=== PATIENT | male | born 1975 | race Caucasian/White ===

== ENCOUNTER → 2024-03-01 | Outpatient (CLI) | payer OTHER ==
[2024-03-01 11:17] LABS: HCT 49.4 % (39.6-50.0); HGB 17.2 g/dL (13.0-17.0); MCH 31.9 pg (27.0-32.0); MCHC 34.8 g/dL (32.0-37.0); MCV 91.7 FL (80.0-97.0); Mean Platelet Volume 10.5 FL (9.5-12.2); NRBC Per 100 WBC 0 X 10*3/uL (0.00-0.01); Platelet Count 242 X 10*3/uL (140-440); RBC 5.39 X 10*6/uL (4.40-5.60); RDW 13.9 % (11.5-14.5); WBC 8.49 X 10*3/uL (4.50-10.00)
[2024-03-01 12:11] LABS: ALT 18 U/L (10-49); AST 26 U/L (14-35); Albumin 4.5 g/dL (3.8-4.9); Albumin/Globulin Ratio 1.67 Ratio (1.60-3.17); Alkaline Phosphatase 85 U/L (41-126); BUN/Creat Ratio 11.62 Ratio (12.00-20.00); Blood Urea Nitrogen 9.3 mg/dL (9.0-27.0); Calcium 9.9 mg/dL (8.7-10.3); Carbon Dioxide 24.8 mmol/L (21.6-31.8); Chloride 100 mmol/L (96-109); Globulin 2.7 g/dL (1.6-3.3); Glucose 122 mg/dL (70-110); Potassium 3.8 mmol/L (3.5-5.5); Sodium 140 mmol/L (135-145); Total Bilirubin 0.7 mg/dL (0.3-1.2); Total Protein 7.2 g/dL (6.2-8.2)
== END | disposition home or self-care (01) ==
LOC: LABWHC1 09:05
PROVIDERS: ATTEND Internal Medicine Interventional Cardiology
DX: E78.2 Mixed hyperlipidemia (principal); R07.9 Chest pain, unspecified
CPT/HCPCS: 36415; 80053; 80061; 83721; 85027

== ENCOUNTER → 2024-04-08 | Day surgery (SDC) | payer OTHER ==
[2024-04-06 14:18] VITALS: BMI 33.4
[~2024-04-08] MED LIST: ALPRAZolam 0.25 MG TAB PO PRN; ALPRAZolam 0.5 MG TAB PO PRN; ASPIRIN 81 MG PO SCH; ATORVASTATIN 40 MG TAB PO SCH; HEPARIN SODIUM,PORCINE (1 ML) 2,500 UNIT in SODIUM CHLORIDE 0.9% 250 ML IRRIGATION PRN; HEPARIN SODIUM,PORCINE 10,000 UNIT in SODIUM CHLORIDE 0.9% 1,000 ML IRRIGATION PRN; METOPROLOL TARTRATE 50 MG TAB PO SCH; NITROGLYCERIN SL TABS 0.4 MG TAB SUBLINGUAL PRN; RX INFO: IV CONTRAST WAS GIVEN 1 EACH MISC MISCELLANE PRN; SODIUM CHLORIDE 0.9% 1,000 ML IV SCH
[2024-04-08] MEDS: SODIUM CHLORIDE 0.9% 1,000 ML in EMPTY BAG 1 BAG IV SCH (07:30)
[2024-04-08] MEDS: IV FLUID CONTINUATION 1,000 ML IV ONE (07:30)
[2024-04-08] MEDS: ASPIRIN 325 MG TAB PO STA (08:20)
[2024-04-08] MEDS: ATORVASTATIN 80 MG TAB PO STA (08:20)
[2024-04-08 08:31] VITALS: TEMP 98.6
[2024-04-08] MEDS: METOPROLOL TARTRATE 25 MG TAB PO STA (08:44)
[2024-04-08] MEDS: fentaNYL (PF) 50 MCG/ML 2 ML AMP IVP ONE (10:51)
[2024-04-08] MEDS: LIDOCAINE 1% INJ 10MG/ML (20 ML MDV) SQ ONE (10:54)
[2024-04-08] MEDS: VERAPAMIL SYRINGE (5 MG/10 ML) INTRAARTER ONE (10:56)
[2024-04-08] MEDS: MIDAZOLAM 2 MG/2 ML VIAL IVP ONE (11:00)
[2024-04-08 11:13] LABS: WBC 8.8 k/uL (3.8-10.6)
[2024-04-08 11:14] LABS: Basophils % (A) 1 %; Eosinophils # (A) 0.1 k/uL (0-0.7); Eosinophils % (A) 2 %; HCT 45.5 % (39.0-53.0); HGB 15.4 gm/dL (13.0-17.5); Lymphocytes # (A) 2.4 k/uL (1.0-4.8); Lymphocytes % (A) 28 %; MCH 32.2 pg (25.0-35.0); MCV 94.8 fL (80.0-100.0); Mean Platelet Volume 8.9; Monocytes # (A) 0.4 k/uL (0-1.0); Monocytes % (A) 5 %; Neutrophils # (A) 5.5 k/uL (1.3-7.7); Neutrophils % (A) 63 %; Platelet Count 257 k/uL (150-450); RBC 4.79 m/uL (4.30-5.90); RDW 12.9 % (11.5-15.5)
[2024-04-08 11:24] LABS: African American GFR (CKD) >90 (>60 ml/min/1.73 sqM); Anion Gap 11 mmol/L; Blood Urea Nitrogen 14 mg/dL (9-20); Calcium 8.9 mg/dL (8.4-10.2); Carbon Dioxide 19 mmol/L (22-30); Chloride 108 mmol/L (98-107); Glucose 122 mg/dL (74-99); Non-African American GFR(CKD) >90 (>60 ml/min/1.73 sqM); Potassium 3.6 mmol/L (3.5-5.1); Sodium 138 mmol/L (137-145)
--- NOTE | 2024-04-08 11:27 | P.CARDCATH ---
Date of Procedure: 04/08/24 Description of Procedure: Cardiac Catheterization: The patient is a 48-year-old male with known history of chronic tobacco use, hyperlipidemia, strong family history of premature CAD who presented with symptoms of exertional chest discomfort and had an abnormal stress test. Recommendations were made regarding cardiac catheterization, the risks and the complications were discussed with the patient who is in full understanding and agreement. Procedure Description: Patient was brought to [facility] in fasting semi-sedated state after receiving Fentanyl and Benadryl achieiving moderate conscious sedated state. Using Xylocaine Anesthesia and modified Seldinger technique, a 6-Kyrgyz sheath was introduced in the right radial artery . Subsequently, selective coronary angiography was performed using a 5-Kyrgyz 3.5 bend Sherrie catheter. Multiple views of the coronary artery including hemiaxial views were obtained. The right Sherrie catheter was used to cross the aortic valve and LVEDP was calculated. Following that, catheter and sheath were removed. Hemostasis was obtained with deployment of vascular band . There was no immediate complication. Patient was returned to room in stable condition. Of note, the patient received a total of 5000 units of intravenous heparin as well as intra-arterial verapamil. Findings: Fluoroscopy: Calcification of the proximal LAD was noted Left main: This is a large size vessel, bifurcating into LAD and left circumflex, left main has no obstructive disease LAD: This vessel is occluded at the ostium with no significant antegrade flow. There is retrograde flow through collaterals from the right septals to the proximal segment of the LAD and back feeding the diagonal branch Left circumflex: This is a large nondominant vessel, giving rise to 4 obtuse marginal branch. The first obtuse marginal branch has an 80% stenosis at the ostium. The third obtuse marginal branch is chronically occluded with retrograde flow and appears to be large in caliber RCA: This is a large dominant vessel, bifurcating distally to PDA and PLV. The mid right coronary artery has 20 to 30% plaque. The right PDA through the septal give collaterals to the LAD. Left Ventriculogram: Not performed Hemodynamics: There was no gradient across the aortic valve, LVEDP was 26-30 mm Hg Conclusion: 1. Calcified LAD with chronic total occlusion and collaterals from the right coronary system 2. Chronically occluded OM 3 with critical stenosis in OM1 3. Mild disease in the RCA 4. Elevated LVEDP Recommendations: I have recommended to proceed with evaluation for CABG in view of the anatomy. The findings were discussed with the patient and his family. The importance of smoking cessation was discussed with him, he will be referred to [place]. The findings and the recommendations were discussed with the patient and the family and they were in full understanding and agreement. Duration of sedation is 11 minutes.
--- NOTE | 2024-04-08 13:06 | P.GSCN ---
History of Present Illness Consult date: 04/08/24 Reason for Consult: Coronary artery disease Requesting physician: Noe Majano History of present illness: This is a 48-year-old gentleman who does not follow with a primary care physician on an outpatient basis. He has a previous medical history of hyperlipidemia, current tobacco dependence, current daily EtOH use, current daily marijuana use, and strong family history of premature coronary artery disease. Apparently he has been experiencing substernal chest pain with radiation and numbness to his left arm associated with occasional shortness of breath. These episodes have been intermittent since October, they are mostly with activity although he does admit that he occasionally gets woken up from sleep in the middle of the night due to chest pain. He began following with Dr. Majano at [facility] and was started on aspirin, statin, beta-frank therapy. In the middle of February he underwent echocardiogram revealing normal left ventricular systolic function with EF 55 to 60%, mild left ventricular hypertrophy, trace to mild mitral regurgitation, and mild tricuspid regurgitation. He also had a treadmill stress test which demonstrated 1.[address] segment depression in leads II, III, aVF, V4 through V6. Due to these findings the patient was recommended to undergo heart catheterization which was completed today by Dr. Majano revealing calcified left anterior descending coronary artery with chronic total occlusion and collaterals from the right coronary system, chronically occluded third obtuse marginal as well as critical stenosis in the first obtuse marginal coronary artery and mild disease in the right coronary artery. Consultation was placed to Dr. Mendoza from cardiothoracic surgery for surgical revascularization recommendations. Review of Systems Review of systems was completed and was negative except as noted - Cardiovascular Reports as per HPI, Reports chest pain, Reports shortness of breath Past Medical History Past Medical History: Coronary Artery Disease (CAD), Chest Pain / Angina, Hyperlipidemia, Hypertension Additional Past Medical History / Comment(s): chest pain radiating to left arm with numbness,SOB w/ activity History of Any Multi-Drug Resistant Organisms: None Reported Past Surgical History: Tonsillectomy Additional Past Surgical History / Comment(s): pierre ingrown toenails Past Anesthesia/Blood Transfusion Reactions: No Reported Reaction, Family History of Problems w/ Anesthesia Additional Past Anesthesia/Blood Transfusion Reaction / Comm: no hx blood transfusion. mom has trouble waking up with anesthesia Past Psychological History: No Psychological Hx Reported Smoking Status: Current every day smoker Past Alcohol Use History: Daily Additional Past Alcohol Use History / Comment(s): Drinks 1 pint daily Past Drug Use History: Marijuana Additional Drug Use History / Comment(s): Uses marijuana daily Additional History: Smokes 1/2 pack/day for the last 10 years - Past Family History Mother Family Medical History: Cancer Father Family Medical History: Coronary Artery Disease (CAD) Additional Family Medical History / Comment(s): Premature coronary artery disease Medications and Allergies Home Medications Medication Instructions Recorded Confirmed Type Aspirin 81 mg PO DAILY 04/06/24 04/08/24 History Atorvastatin [Lipitor] 40 mg PO DAILY 04/06/24 04/08/24 History Metoprolol Tartrate [Lopressor] 50 mg PO BID #0 04/08/24 04/08/24 Rx Nitroglycerin Sl Tabs [Nitrostat] 0.4 mg SUBLINGUAL Q5M PRN #25 tab 04/08/24 Rx Allergies Allergy/AdvReac Type Severity Reaction Status Date / Time isosorbide AdvReac severe Verified 04/06/24 14:08 bounding FREEMAN,sweats,fever Surgical - Exam Vital Signs Temp Pulse Resp BP Pulse Ox 98.6 F 84 16 144/96 98 04/08/24 07:50 04/08/24 07:50 04/08/24 07:50 04/08/24 07:50 04/08/24 07:50 CONSTITUTIONAL: Awake and alert, appears comfortable, cooperative, well- developed, well-nourished, no pain, no acute distress EYES: Pupils equal, round, reactive to light, normal ocular movement ENT: Moist mucous membranes without oral lesions present NECK: No masses, no bruits, trachea midline RESPIRATORY: Lungs sounds clear to auscultation bilaterally. Respirations even, nonlabored. Currently on room air with oxygen saturation 97%. Strong cough. No chest wall deformities. No clubbing or cyanosis present CARDIOVASCULAR: S1, S2 present. Regular rate and rhythm, sinus rhythm on telemetry. Palpable peripheral pulses bilaterally. No edema present. No calf pain or tenderness noted. No significant lower extremity varicosities noted. Left radial Sharath's test less than 8 seconds. GASTROINTESTINAL: Abdomen soft, nontender, nondistended without masses or organomegaly noted. There is no rebound or guarding present. Active bowel sounds present 4 quadrants. GENITOURINARY: Deferred INTEGUMENTARY: Skin is warm and dry with evidence of good perfusion. NEUROLOGIC: Cranial nerves II through XII intact, normal coordination, no obvious motor or sensory deficits, speech is normal MUSKULOSKELETAL: Able to move all extremities, strength equal bilaterally, normal posture PSYCHIATRIC: Alert and oriented to person place and time, appropriate affect, intact judgment and insight CLINICAL FRAILTY SCORE 2 Results - Labs 04/08/24 07:29 04/08/24 07:29 Abnormal Lab Results - Last 24 Hours (Table) 04/08/24 Range/Units 07:29 Chloride 108 H (98-107) mmol/L Carbon Dioxide 19 L (22-30) mmol/L Glucose 122 H (74-99) mg/dL Diabetes panel 04/08/24 Range/Units 07:29 Sodium 138 (137-145) mmol/L Potassium 3.6 (3.5-5.1) mmol/L Chloride 108 H (98-107) mmol/L Carbon Dioxide 19 L (22-30) mmol/L BUN 14 (9-20) mg/dL Creatinine 0.69 (0.66-1.25) mg/dL Glucose 122 H (74-99) mg/dL Calcium 8.9 (8.4-10.2) mg/dL Calcium panel 04/08/24 Range/Units 07:29 Calcium 8.9 (8.4-10.2) mg/dL Pituitary panel 04/08/24 Range/Units 07:29 Sodium 138 (137-145) mmol/L Potassium 3.6 (3.5-5.1) mmol/L Chloride 108 H (98-107) mmol/L Carbon Dioxide 19 L (22-30) mmol/L BUN 14 (9-20) mg/dL Creatinine 0.69 (0.66-1.25) mg/dL Glucose 122 H (74-99) mg/dL Calcium 8.9 (8.4-10.2) mg/dL Adrenal panel 04/08/24 Range/Units 07:29 Sodium 138 (137-145) mmol/L Potassium 3.6 (3.5-5.1) mmol/L Chloride 108 H (98-107) mmol/L Carbon Dioxide 19 L (22-30) mmol/L BUN 14 (9-20) mg/dL Creatinine 0.69 (0.66-1.25) mg/dL Glucose 122 H (74-99) mg/dL Calcium 8.9 (8.4-10.2) mg/dL - Imaging Additional studies: Heart catheterization reviewed Assessment and Plan Assessment: Coronary artery disease Chest pain, secondary to above History of hyperlipidemia Current tobacco dependence Current daily EtOH use Current daily marijuana use Strong family history of premature coronary artery disease Plan: The patient was seen and examined sitting up on a cart in the Extended Stay unit in no acute distress. Family was present. Chart/diagnostics were reviewed. The usual perioperative course of open-heart surgery was discussed in detail with the patient and his family, risks and benefits reviewed, all questions were answered. The case will be discussed in detail with Dr. Mendoza. Preoperative testing was initiated, once completed we will calculate STS risk score. The patient was strongly counseled to quit smoking completely, refrain from daily EtOH and marijuana use. Recommend continuing aspirin, statin, beta-frank therapy. More recommendations to be made once Dr. Mendoza has had the opportunity to review the patient's heart catheterization films and talk with the patient. Thank you Dr. Majano for this consult. More recommendations to follow. I have personally seen and examined the patient, performed the documentation and the assessment and plan as written. Number of minutes spent on the visit: 30. ELIZABETH Montgomery
[2024-04-08 13:10] LABS: Appearance,Urine Clear (Clear); Bilirubin,Urine Negative (Negative); Blood,Urine Negative (Negative); Color,Urine Colorless; Glucose,Urine (UA) Negative (Negative); Ketones,Urine Negative (Negative); Leukocyte Esterase,Urine Negative (Negative); Nitrite,Urine Negative (Negative); Protein,Urine Negative (Negative); Specific Gravity,Urine 1.026 (1.001-1.035); Urobilinogen,Urine <2.0 mg/dL (<2.0)
--- NOTE | 2024-04-08 14:02 | US ---
EXAMINATION TYPE: Pre-Operative Non-Invasive Evaluation of the hand for Potential Radial Artery Ronaldo , Measurements only DATE OF EXAM: 04/08/2024 1:47 PM CLINICAL INDICATION: Male, 48 years old with history of measurements only; open heart, Preop- Cardiac Surgery TECHNIQUE:Grayscale and color Doppler imaging of the radial artery(s) SIDE PERFORMED: Left FINDINGS: Dominant hand: Right Duplex Findings: Radial Artery: Color flow seen Measurements in mm, transverse view: Left Radial: Proximal: 3.4 x 3.0 mm Mid: 3.0 x 3.0 mm Distal: 3.0 x 3.3 mm IMPRESSION: 1. No evidence for vascular occlusion. 2. Measurements as described above. [facility], , 04/08/2024 1:59 PM
--- NOTE | 2024-04-08 14:13 | US ---
EXAMINATION TYPE: US vein mapping BILAT DATE OF EXAM: 04/08/2024 1:47 PM COMPARISON: NONE CLINICAL INDICATION: Male, 48 years old with history of preop cardiac surgery; open heart, Preop- Car diac Surgery TECHNIQUE: Grayscale and color Doppler imaging of the lower extremity venous system. SIDE PERFORMED: Bilateral FINDINGS: PATIENT HISTORY: Smoker: y Heart Disease: n Previous DVT: n Vascular Surgery: n Discoloration: n Hypertension: y Diabetes: n Paralysis: n Varicosities: n Edema: n DUPLEX FINDINGS: Greater Saphenous: Color flow seen Measurements in mm: Right Greater Saphenous: Groin: 4.5 x 4.3 mm High Thigh: 2.4 x 2.8 mm Mid Thigh: 4.8 x 5.5 mm Above Knee: 5.0 x 6.5 mm Knee: 6.3 x 7.3 mm Below Knee: 4.7 x 5.6 mm Mid Calf: 2.1 x 2.5 mm At Ankle: 2.8 x 3.5 mm Left Greater Saphenous: Groin: 10.0 x 7.5 mm High Thigh: 4.5 x 6.7 mm Mid Thigh: 4.8 x 6.1 mm Above Knee: 4.7 x 6.0 mm Knee: 4.1 x 5.9 mm Below Knee: 4.5 x 5.8 mm Mid Calf: 3.3 x 4.3 mm At Ankle: 3.9 x 3.9 mm IMPRESSION: 1. No evidence for occlusion. 2. GSV measurements listed above. 3. Performing surgeon to determine viability as conduit. [facility], , 04/08/2024 2:11 PM
--- NOTE | 2024-04-08 14:38 | US ---
EXAMINATION TYPE: US carotid duplex BILAT DATE OF EXAM: 04/08/2024 COMPARISON: NONE CLINICAL INDICATION: Male, 48 years old with history of preop cardiac surgery; open heart, no stroke history Additional History: .... TECHNIQUE: Grayscale, color Doppler and spectral Doppler evaluation of the bilateral carotid systems and vertebral arteries. Indirect Doppler criteria was utilized. FINDINGS: EXAM MEASUREMENTS: RIGHT: Peak Systolic Velocity (PSV) cm/sec ----- Right CCA: 89.6 ----- Right ICA: 88.6 ----- Right ECA: 82.2 ICA/CCA ratio: 1.0 RIGHT: End Diastole cm/sec ----- Right CCA: 18.8 ----- Right ICA: 35.8 ----- Right ECA: 7.8 LEFT: Peak Systolic Velocity (PSV) cm/sec ----- Left CCA: 84.0 ----- Left ICA: 81.7 ----- Left ECA: 95.9 ICA/CCA ratio: 1.0 LEFT: End Diastole cm/sec ----- Left CCA: 15.1 ----- Left ICA: 18.8 ----- Left ECA: 17.4 VERTEBRALS (direction of flow): Right Vertebral: Antegrade Left Vertebral: Antegrade Rhythm: Normal [employer] NOTES: Mild homogeneous plaque with no stenosis Color Doppler imaging shows patency with blood flow throughout the carotid artery. Spectral waveforms are within normal limits. IMPRESSION: 1. Atheromatous plaquing without significant flow-limiting stenosis based on velocities. Criteria for Assigning % of Stenosis / Diameter reduction (Estimation based on the indirect measurements of the internal carotid artery velocities (ICA PSV). 1. Normal (no stenosis)=ICA PSV < 125 cm/s: ratio < 2.0: ICA EDV<40 cm/s. 2. Less than 50% stenosis=ICA PSV < 125 cm/s: ratio < 2.0: ICA EDV<40 cm/s. 3. 50 to 69% stenosis=ICA PSV of 125 to 230 cm/s: ration 2.0 ? 4.0: ICA EDV 40-100 cm/s. 4. Greater than 70% stenosis to near occlusion= ICA PSV > 230 cm/s: ratio > 4.0: ICA EDV > 100 cm/s. 5. Near occlusion= ICA PSV velocities may be low or undetectable: variable ratio and ICA EDV. 6. Total occlusion=unable to detect flow. [facility], , 04/08/2024 2:36 PM
--- NOTE | 2024-04-08 14:55 | XR ---
EXAMINATION TYPE: XR chest 2V DATE OF EXAM: 04/08/2024 2:43 PM COMPARISON: Not CLINICAL INDICATION: Male, 48 years old with history of preop CABG, coronary artery disease TECHNIQUE: XR chest 2V view(s) obtained. FINDINGS: The heart size is normal. The pulmonary vasculature is normal. The lungs are clear. IMPRESSION: 1. No acute pulmonary process. [facility], , 04/08/2024 2:53 PM
--- NOTE | 2024-04-08 15:21 | CT ---
EXAMINATION TYPE: CT chest wo con CT DLP: 464.3 mGycm, Automated exposure control for dose reduction was used. DATE OF EXAM: 04/08/2024 3:06 PM COMPARISON: Chest radiograph from 04/08/2024 CLINICAL INDICATION:Male, 48 years old with history of eval aorta for clampability; PHH, Post heart c ath eval of aorta for clampability. TECHNIQUE: Multiple axial images were obtained through the chest without IV contrast. Lack of IV or o ral contrast limits evaluation of solid and hollow organ viscera. . Coronal and sagittal reformats re viewed. FINDINGS: LUNGS/ PLEURA: The lung parenchyma appears unremarkable. Punctate calcified granuloma within the pos terior right upper lung. AIRWAY: Patent and unremarkable.. HEART: Size within normal limits.No pericardial effusion. Small to moderate coronary arterial calcifi cations. MEDIASTINUM: No gross evidence of adenopathy. VASCULATURE: Conventional three-vessel aortic arch. No aortic aneurysm. No significant atheroscleroti c calcification of the aorta. MUSCULOSKELETAL: No acute osseous abnormalities SOFT TISSUES/LYMPH NODES: Bilateral gynecomastia. LOWER NECK: No significant findings. UPPER ABDOMEN: Contrast is demonstrated within the bilateral renal collecting systems from prior hear t catheter. Nonobstructive right renal calculi measuring up to 5 mm. IMPRESSION: 1. No acute thoracic process. No significant atherosclerotic calcification of the aorta. 2. Nonobstructive right renal calculi. [facility], , 04/08/2024 3:19 PM
[2024-04-08 16:46] LABS: Albumin 4.4 g/dL (3.5-5.0); Calcium 8.9 mg/dL (8.4-10.2); Total Bilirubin 0.9 mg/dL (0.2-1.3)
[2024-04-08 17:06] LABS: Partial Thromboplastin Time 26.9 sec (22.0-30.0); Prothrombin Time 10.6 sec (10.0-12.5)
[2024-04-08 17:23] VITALS: RESP 14
[2024-04-08 17:24] VITALS: BP 148/95; PULSE 78
[2024-04-09 03:04] LABS: Hepatitis A Antibody IgM Nonreactive (Nonreactive); Hepatitis B Core IgM Nonreactive (Nonreactive); Hepatitis B Surface Antigen Nonreactive (Nonreactive); Hepatitis C IgG Antibody Nonreactive (Nonreactive)
[2024-04-09 03:26] LABS: Chol/HDL Ratio 3.11 Ratio; LDL Cholesterol,Calculated 46.4 mg/dL (0.0-131.0)
== END | disposition home or self-care (01) ==
LOC: CATHCVL 07:14 → EDSTATUS 07:30
PROVIDERS: ATTEND Internal Medicine Interventional Cardiology
DX: I25.10 Atherosclerotic heart disease of native coronary artery without angina pectoris (principal); F17.210 Nicotine dependence, cigarettes, uncomplicated; E78.2 Mixed hyperlipidemia; Z79.02 Long term (current) use of antithrombotics/antiplatelets; Z79.899 Other long term (current) drug therapy
CPT/HCPCS: 94150; 93458; 80061; 80048; 80074; 84443; 82040; 82247; 82310; 84075; 84155; 84450; 84460; 85025; 85610; 85730; 81003; 87070; 83036; 71046; 93931; 93970; 93880; 71250; C1769 ×2; C1894; J2250; J2003; J3010; J1644

== ENCOUNTER 2024-06-16 05:36 | Inpatient (IN) | payer OTHER ==
[2024-06-16] MEDS: METOPROLOL TARTRATE 12.5 MG TAB PO ONE (06:15)
[2024-06-16] MEDS: IV FLUID CONTINUATION 1,000 ML IV ONE (06:20)
[2024-06-16] MEDS: LACTATED RINGERS 1,000 ML IV ONE (06:20)
[2024-06-16] MEDS: LIDOCAINE 1% (10MG/ML) FOR IV START INTRADERMA STA (06:20)
[2024-06-16 06:38] LABS: Glucose,Whole Blood 130 mg/dL (70-110)
[2024-06-16] MEDS ORDERED: MIDAZOLAM HCL 10 MG/10 ML VIAL ONE (07:50)
[2024-06-16] MEDS ORDERED: TRANEXAMIC 1,000 MG/100ML-NACL PREMIX BAG ONE (07:50)
[2024-06-16] MEDS ORDERED: LIDOCAINE 2% SYG (PF) 100 MG/5 ML ONE (07:50)
[2024-06-16] MEDS ORDERED: fentaNYL (PF) 50 MCG/ML 50 ML VIAL ONE (07:50)
[2024-06-16] MEDS ORDERED: NITROGLYCERIN-D5W PMX 50 MG/250 ML BOTTLE IV ONE (07:50)
[2024-06-16] MEDS ORDERED: INSULIN REGULAR 100 UNIT/ML VIAL (IV) ONE (07:50)
[2024-06-16] MEDS ORDERED: PROPOFOL 10 MG/ML 20 ML VIAL IV ONE (07:50)
[2024-06-16] MEDS ORDERED: SUCCINYLCHOLINE CHLORIDE 200 MG/10 ML VIAL IV ONE (07:50)
[2024-06-16] MEDS ORDERED: VECURONIUM 10 MG VIAL IV ONE (07:50)
[2024-06-16] MEDS ORDERED: ALBUMIN HUMAN 5% (25gm) 500 ML VIAL IVPB ONE (07:50)
[2024-06-16] MEDS ORDERED: PROTAMINE SULFATE 10 MG/ML 25 ML VIAL IV ONE (07:50)
[2024-06-16] MEDS: SODIUM CHLORIDE 0.9% 50 ML with ceFAZolin 2,000 MG IV ONE (07:57)
[2024-06-16 08:30] LABS: ABG Base Excess -1.7 mmol/L; ABG Glucose Whole Blood 123 mg/dL (75-99); ABG HCO3 24 mmol/L (21-25); ABG Hematocrit 40 % (34.0-46.0); ABG Ionized Calcium 4.7 mg/dL (4.5-5.3); ABG Lactic Acid Whole Blood 1.4 mmol/L (0.5-1.6); ABG Oxygen Saturation 98.7 % (94-97); ABG PCO2 42 mmHg (35-45); ABG PH 7.36 (7.35-7.45); ABG PO2 125 mmHg (83-108); ABG Potassium Whole Blood 3.9 mmol/L (3.4-4.5); ABG Sodium Whole Blood 141 mmol/L (135-146); ABG TCO2 22 mmol/L (19-24); Allen Test Performed? Yes
--- NOTE | 2024-06-16 09:05 | P.ANPRN ---
Procedure Note - Anesthesia - Invasive Line Right Central Line Time Out Performed: Yes (0732) Date of Procedure: 06/16/24 Time of Procedure: 07:33 Location of Patient: Phase I Preparation: Sterile Prep, Sterile Dressing Central Line Location: Internal Jugular (right IJ) Ultrasound Used: Yes Purpose - Visualization and Identification of Vasculature: Yes Needle Guage: 18g angio Image Stored and Saved: Yes Narrative: Invasive line placement per sterile protocol utilized. Anesthesia note Procedure: [Right] [Internal jugular] central venous catheter insertion: [8.5- Nam[place]ian Cordis] Sterile protocol followed. [Right] neck prepped. Ultrasound used. Lidocaine 1% used. Using ultrasound local anesthetic was instilled site over [right Internal Jugular vein]. Angiocath was used to gain access via ultrasound. Once free flow non-pulsatile blood flow was confirmed, 12 inch extension tubing was then placed on Angiocath. Once central venous pressure was confirmed, J-wire was then placed through Angiocath. Angiocath was then withdrawn. Local was i nstilled at J-wire site. Small skin trudi was then made with provided sterile scalpel. [8.5-Namibian Cordis] was then inserted over the wire while maintaining control of wire at all times. Uneventful insertion with dilation. Free flow nonpulsatile blood flow through Cordis. Hooked up to IV tubing. Secured with suture. Septa faults [Drapes Removed.] Attempts [x1].
--- NOTE | 2024-06-16 09:05 | P.ANPRN ---
Procedure Note - Anesthesia - RHIANNON Intraop Pre Bypass RHIANNON Intraop - Anesthesia Indication: cad Date of Procedure: 06/16/24 Pre-operative Diagnosis: cad Post-operative Diagnosis: cad s/p CABG on pump Surgeon: Wendy Pleitez Left Ventricle: wnl Ejection Fraction: Normal Regional Wall Motion Abnormalities: None Left Ventricle Hypertrophy: No Right Ventricle: wnl R. Ventricle Function: Normal Anatomy: Trileaflet Aortic Stenosis: None Aortic Regurgitation: None Mitral Stenosis: None Mitral Regurgitation: None Tricuspid Stenosis: None Tricuspid Regurgitation: None Pulmonic Stenosis: None Pulmonic Regurgitation: None R. Atrial Dilation: No R. Atrial PFO: No L. Atrial Dilation: No Aortic Dissection: No Aortic Calcification: None Plural Effusion: None
--- NOTE | 2024-06-16 09:07 | P.ANPRN ---
Procedure Note - Anesthesia - Invasive Line Right [place] Aparna Time Out Performed: Yes (0732) Date of Procedure: 06/16/24 Time of Procedure: 07:44 Location of Patient: Phase I Preparation: Sterile Prep, Sterile Dressing [place] Aparna Line Location: Internal Jugular (Right IJ) Ultrasound Used: No Purpose - Visualization and Identification of Vasculature: No Image Stored and Saved: No Narrative: Invasive line placement per sterile protocol utilized. Anesthesia note Procedure right [place]-Aparna catheter placed through [right internal jugular] central venous catheter Sterile protocol maintained from previous procedure. [place]-Aparna catheter sterilely placed in sheath and flushed prior to insertion. After advancing 15 cm [place]-Aparna catheter was then slowly inserted with balloon up. Advanced through CVP, RV to PA waveform. [place]-Aparna catheter wedged around 64 cm. Balloon down. Catheter withdrawn 5 cm. . No wedge. Proximal and distal sites locked on sheath. Attempts x 4. All 4 attempts wedged around 64 cm. Sterile drapes removed and dressings applied.
[2024-06-16] MEDS: SODIUM CHLORIDE 0.9% 500 ML 500 ML with HEPARIN SODIUM,PORCINE (1 ML) 5,000 UNIT IV ONE (09:26)
[2024-06-16] MEDS: PAPAVERINE 360 MG in SODIUM CHLORIDE 0.9% 90 ML IV ONE (09:28)
[2024-06-16] MEDS: ceFAZolin 1,000 MG in SODIUM CHLORIDE 0.9% 1,000 ML IRRIGATION ONE (09:29)
[2024-06-16 10:05] LABS: Allen Test Performed? Yes
[2024-06-16 10:06] LABS: ABG Base Excess -3.6 mmol/L; ABG Glucose Whole Blood 152 mg/dL (75-99); ABG HCO3 21 mmol/L (21-25); ABG Hematocrit 34 % (34.0-46.0); ABG Ionized Calcium 4.6 mg/dL (4.5-5.3); ABG Lactic Acid Whole Blood 1.4 mmol/L (0.5-1.6); ABG Oxygen Saturation 99.3 % (94-97); ABG PCO2 36 mmHg (35-45); ABG PH 7.38 (7.35-7.45); ABG PO2 208 mmHg (83-108); ABG Potassium Whole Blood 3.3 mmol/L (3.4-4.5); ABG Sodium Whole Blood 141 mmol/L (135-146); ABG TCO2 20 mmol/L (19-24)
[2024-06-16 11:03] LABS: ABG Base Excess 0.8 mmol/L; ABG Glucose Whole Blood 123 mg/dL (75-99); ABG HCO3 25 mmol/L (21-25); ABG Hematocrit 26 % (34.0-46.0); ABG Ionized Calcium 3.9 mg/dL (4.5-5.3); ABG Lactic Acid Whole Blood 1.6 mmol/L (0.5-1.6); ABG Oxygen Saturation >99.4 % (94-97); ABG PCO2 37 mmHg (35-45); ABG PH 7.44 (7.35-7.45); ABG Potassium Whole Blood 3.3 mmol/L (3.4-4.5); ABG Sodium Whole Blood 141 mmol/L (135-146); Allen Test Performed? Yes
[2024-06-16 11:28] LABS: ABG Base Excess -0.6 mmol/L; ABG Glucose Whole Blood 153 mg/dL (75-99); ABG HCO3 24 mmol/L (21-25); ABG Hematocrit 28 % (34.0-46.0); ABG Oxygen Saturation >99.4 % (94-97); ABG PCO2 37 mmHg (35-45); ABG PH 7.42 (7.35-7.45); ABG PO2 420 mmHg (83-108); ABG Potassium Whole Blood 4.1 mmol/L (3.4-4.5); ABG Sodium Whole Blood 140 mmol/L (135-146); Allen Test Performed? Yes
[2024-06-16 11:59] LABS: ABG Base Excess -1.3 mmol/L; ABG Glucose Whole Blood 164 mg/dL (75-99); ABG HCO3 23 mmol/L (21-25); ABG Hematocrit 28 % (34.0-46.0); ABG Ionized Calcium 4.2 mg/dL (4.5-5.3); ABG Oxygen Saturation >99.4 % (94-97); ABG PCO2 37 mmHg (35-45); ABG PH 7.41 (7.35-7.45); ABG PO2 355 mmHg (83-108); ABG Potassium Whole Blood 4.1 mmol/L (3.4-4.5); ABG Sodium Whole Blood 140 mmol/L (135-146); Allen Test Performed? Yes
[2024-06-16 11:59] LABS: ABG PO2 >420 mmHg (83-108)
[2024-06-16 12:00] LABS: ABG Lactic Acid Whole Blood 2.1 mmol/L (0.5-1.6)
[2024-06-16 12:01] LABS: ABG Lactic Acid Whole Blood 2.2 mmol/L (0.5-1.6)
[2024-06-16 13:07] LABS: ABG Base Excess -1.6 mmol/L; ABG Glucose Whole Blood 148 mg/dL (75-99); ABG HCO3 24 mmol/L (21-25); ABG Hematocrit 32 % (34.0-46.0); ABG Ionized Calcium 4.8 mg/dL (4.5-5.3); ABG Oxygen Saturation 93.9 % (94-97); ABG PCO2 44 mmHg (35-45); ABG PH 7.35 (7.35-7.45); ABG PO2 64 mmHg (83-108); ABG Potassium Whole Blood 3.7 mmol/L (3.4-4.5); ABG Sodium Whole Blood 141 mmol/L (135-146); ABG TCO2 23 mmol/L (19-24); Allen Test Performed? Yes
[2024-06-16 13:24] LABS: ABG Base Excess -1.7 mmol/L; ABG Glucose Whole Blood 131 mg/dL (75-99); ABG HCO3 23 mmol/L (21-25); ABG Hematocrit 33 % (34.0-46.0); ABG Ionized Calcium 4.7 mg/dL (4.5-5.3); ABG Oxygen Saturation >99.4 % (94-97); ABG PCO2 37 mmHg (35-45); ABG PO2 381 mmHg (83-108); ABG Potassium Whole Blood 3.4 mmol/L (3.4-4.5); ABG Sodium Whole Blood 142 mmol/L (135-146); Allen Test Performed? Yes
[2024-06-16 13:25] LABS: ABG Lactic Acid Whole Blood 2.9 mmol/L (0.5-1.6)
[2024-06-16] MEDS ORDERED: DEXTROSE 5% IN WATER 100 ML with AMIODARONE 150 MG IV PRN (13:43)
[2024-06-16] MEDS ORDERED: hydrALAZINE HCL 20 MG/ML 1 ML VIAL IVP PRN (13:43)
[2024-06-16] MEDS ORDERED: DEXTROSE 50% SYRINGE 50 ML IVP PRN ×2 (13:43)
[2024-06-16] MEDS ORDERED: Potassium Replacement Protocol 1 EACH MISC MISCELLANE PRN (13:43)
[2024-06-16] MEDS ORDERED: IPRATROPIUM-ALBUTEROL 3 ML NEB INHALATION PRN (13:43)
[2024-06-16] MEDS ORDERED: AMIODARONE 360 MG in DEXTROSE 5% IN WATER 200 ML IV PRN (13:43)
[2024-06-16] MEDS ORDERED: METOCLOPRAMIDE 5 MG/ML 2 ML VIAL IVP PRN (13:43)
[2024-06-16] MEDS ORDERED: BENZOCAINE/MENTHOL LOZENG 1 EACH LOZENGE MUCOUS MEM PRN (13:43)
[2024-06-16] MEDS ORDERED: AMIODARONE 450 MG in DEXTROSE 5% IN WATER 250 ML IV PRN (13:43)
[2024-06-16] MEDS ORDERED: Magnesium Replacement Protocol 1 EACH MISC MISCELLANE PRN (13:43)
[2024-06-16 13:50] LABS: Glucose,Whole Blood 124 mg/dL (70-110)
--- NOTE | 2024-06-16 13:54 | P.OP ---
Date of Procedure: 06/16/24 Preoperative Diagnosis: Double vessel coronary artery disease with a totally occluded left anterior descending artery, preserved left ventricular function, hyper lipidemia, hypertension, smoker, EtOH abuse Postoperative Diagnosis: Same with diffuse coronary artery disease Procedure(s) Performed: 1total arterial double coronary artery bypass grafting using the in situ left intramammary artery to the left anterior descending artery, the left radial leonardo ry from the aorta to the third obtuse marginal artery 2exclusion of the left atrial appendage using a 35mm AtriClip 3endoscopic harvesting of the left radial artery 4intraoperative Graft flow measurements using the Clutch.io system 5intraoperative transesophageal echocardiogram and epiaortic scanning Implants: None Anesthesia: HEATH Surgeon: Wendy Pleitez Medical Surgery Nurse #1: Marcelo Blanco Pathology: none sent Condition: stable Disposition: ICU Operative Findings: Patient is a 49 years old gentleman that was worked up for chest pain and had a card catheterization that showed totally occluded left anterior descending artery and a totally occluded third obtuse marginal artery with nonocclusive disease in the right coronary artery with a preserved left ventricular function on echo. Patient is a heavy smoker and drinker and we asked him to stop smoking and stop drinking as appropriate for surgery. Patient is brought in today for double vessel grafting to the LAD and the third obtuse marginal artery. The STS risk score was discussed with him he understood it and agreed to proceed Description of Procedure: Patient had a right internal jugular [place]-Aparna catheter and the right radial arterial line placed in the preoperative holding area. He was brought to the operating room where general endotracheal anesthesia was induced uneventfully. He had normal PA pressure and good cardiac index. The Martinez catheter was inserted. Subsequently the chest abdomen both lower extremities and the left upper extremity were prepped and draped using ChloraPrep. Ioban was used to cover the skin. Patient received 2 g of cefazolin intravenously. Transesophageal echocardiogram confirmed the preoperative finding of preserved ventricular function and no significant valvular abnormalities. Midline sternotomy was performed and the bone was quite dense. The left hemisternum was elevated and the left intramammary artery was harvested in a semicircular Geneyes fashion. The left pleura was intentionally open in this process and was drained with a 19 Georgian Santiago drain. Patient was given 5000's of heparin and the mammary artery was double clipped distally and transected had an excellent pulsatile flow in it and was around 1.75 m in diameter. The same setting the left radial artery was exposed at the wrist and a clamping trial revealed preserved signal in the left index O2 saturation probe. Subsequently the radial artery was harvested without using a tourniquet. Forearm incisions were closed over a drain. The radial artery was prepared by incising the fascia all along its volar aspect and clipping all its branches. It was of excellent quality around 3 mm in diameter. Ankeney retractor was placed. Mediastinal fat were transected between 2 ties and epiaortic scanning ruled out any protruding atheroma in the ascending aorta. Pericardium was opened in an inverted T fashion and pericardial cradle was created. Finding included an extremely short posteriorly positioned aorta and a slightly enlarged heart with a fatty surface and evidence of visible diffuse coronary artery disease in the LAD. After systemic heparinization after placement of respective pledgeted pursestring aortic cannulation with a 21 Georgian slow flow cannula, venous collation via the right atrial appendage with a 29 Georgian 3 stage cannula was performed. Antegrade as well as retrograde cardioplegia catheter were placed. Cardiac bypass was initiated and patient temperature was allowed to drift down to 34 C. With a heart MTN beating we looked at the target and were able to identify a reasonable spot in the mid LAD that was soft but it had diffuse disease in it. Looking at the lateral wall were able to also expose the third obtuse marginal artery before it bifurcated and it appeared to be diseased. Aorta was clamped and during aortic clamping myocardial protection was achieved with an initial dose of 800 cc of antegrade cold blood cardioplegia followed by 500 cc of retrograde cold blood cardioplegia. All subsequent doses were given retrograde at 15 minutes interval. We started by excluding left atrial appendage by deploying a 35mm AtriClip at its base. The first this anastomosis was seen the radial artery and the 1.7 mm thickened third obtuse marginal artery before it bifurcated using Prolene 7 0 in continuous fashion. The second and last this anastomosis was between the in situ left intramammary artery that passed in the deep groove in the left pleuropericardial fat and anastomosed to the mid left anterior descending artery where it was around 1.5 m in diameter using Prolene 7 0 in continuous fashion. Satisfied with the distal anastomosis rewarming was started as we punched out 1 button of 4 mm off the ascending aorta and performed the single proximal anastomosis of the radial artery to the aorta using a running Prolene 7 0. Patient was given lidocaine magnesium and de-airing maneuvers were pursued. Subsequently the aorta was clamped. Patient regained spontaneous sinus rhythm. After around 10 minutes of reperfusion we were able to wean off cardiac bypass without the need of any inotropic or vasopressor support. RHIANNON showed excellent left ventricular function. We at this point selected a 4 mm probe and brought the Medisti for graphical measurement. m system the flow into the radial artery to the third obtuse marginal artery was 108 mL/min, pulsatile index of 1.9 diastolic filling of 76%. The flow into the TEJADA to the LAD was 58 mL/min, pulsatility index of 1.8 Duston filling of 72% all showing excellent functioning graft. With that pump suckers were stopped as we gave test dose followed by full dose protamine. Decannulation followed. 2x19 Georgian Santiago drain were left substernally. Mediastinal and pericardial fat were approximated over the aorta and the right ventricle partially. After ensuring adequate hemostasis hemodynamic after correct sponge instrument and needle count the sternum was closed using 5 [id number] [place] cable after pausing fibrillar between the sternal edges. Thorough irrigation with cefazolin followed. The rest of closure proceeded in layers. Skin glue was applied. Patient did not receive any blood product but received 675 cc of Cell Saver blood. Is transferred to the ICU in stable condition on low-dose nitroglycerin with excellent hemodynamics and normal EKG.
--- NOTE | 2024-06-16 13:54 | P.ANPRN ---
Procedure Note - Anesthesia - RHIANNON Intraop Post Bypass RHIANNON Intraop Post Bypass Procedure Performed: cabg Left Ventricle: wnl Ejection Fraction: Normal Regional Wall Motion Abnormalities: None Right Ventricle: wnl R. Ventricle Function: Normal Aortic Valve: Unchanged Mitral Valve: Unchanged Tricuspid: Unchanged Pulmonic: Unchanged Aortic Dissection: No
[2024-06-16] MEDS: NITROGLYCERIN-D5W PMX 50 MG in DEXTROSE/WATER 1 250ML.BAG IV SCH (13:55)
[2024-06-16] MEDS: SODIUM CHLORIDE 0.9% 1,000 ML IV SCH (14:00)
[2024-06-16 14:02] LABS: Basophils % (A) 0 %; Eosinophils % (A) 0 %; HCT 32.3 % (39.0-53.0); HGB 11.8 gm/dL (13.0-17.5); Lymphocytes # (A) 1.7 k/uL (1.0-4.8); Lymphocytes % (A) 10 %; MCH 33.7 pg (25.0-35.0); MCHC 36.5 g/dL (31.0-37.0); MCV 92.4 fL (80.0-100.0); Mean Platelet Volume 9.1; Monocytes # (A) 0.8 k/uL (0-1.0); Monocytes % (A) 5 %; Neutrophils # (A) 14.7 k/uL (1.3-7.7); Neutrophils % (A) 85 %; Platelet Count 146 k/uL (150-450); RBC 3.49 m/uL (4.30-5.90); RDW 12.7 % (11.5-15.5); WBC 17.4 k/uL (3.8-10.6)
[2024-06-16] MEDS: INSULIN REGULAR 100 UNIT in SODIUM CHLORIDE 0.9% 100 ML IV SCH (14:02)
[2024-06-16 14:14] LABS: Ionized Calcium 4.9 mg/dL (4.5-5.3)
--- NOTE | 2024-06-16 14:19 | XR ---
EXAMINATION TYPE: XR chest 1V portable DATE OF EXAM: 06/16/2024 CLINICAL HISTORY: Postoperative cardiac surgery. TECHNIQUE: 2 AP portable supine views of the chest are obtained. COMPARISON: Chest x-ray from 6 days earlier FINDINGS: There is new endotracheal tube terminating at aortic knob level approximately 3 cm above t he elisa. There is new orogastric tube projecting below diaphragm. There is new right internal jugul ar [place]-Aparna catheter projecting at level of pulmonary outflow tract. There are 2 new mediastinal fernando inage catheters and left-sided chest tube. No obvious left-sided pneumothorax. There are new sternal wires along with mediastinal clips and left atrial appendage clip. Heart size is upper limits of normal. No new focal airspace opacity or pleural effusion is seen. Osse ous structures are intact. IMPRESSION: 1. The new tubes and lines are satisfactory in position. 2. Left-sided chest tube in place without left-sided pneumothorax. [facility], , 06/16/2024 2:17 PM
[2024-06-16 14:20] LABS: ABG Base Excess -1.2 mmol/L; ABG HCO3 25 mmol/L (21-25); ABG Oxygen Saturation >100.0 % (94-97); ABG PCO2 47 mmHg (35-45); ABG PH 7.33 (7.35-7.45); ABG PO2 405 mmHg (83-108); ABG TCO2 27 mmol/L (19-24)
[2024-06-16 14:21] LABS: INR 1.1 (<1.2); Partial Thromboplastin Time 27.7 sec (22.0-30.0); Prothrombin Time 12.2 sec (10.0-12.5)
[2024-06-16 14:22] LABS: Allen Test Performed? no
[2024-06-16 14:24] LABS: ALT 17 U/L (4-49); AST 36 U/L (17-59); African American GFR (CKD) >90 (>60 ml/min/1.73 sqM); Alkaline Phosphatase 45 U/L (38-126); Anion Gap 6 mmol/L; Blood Urea Nitrogen 9 mg/dL (9-20); Calcium 8.6 mg/dL (8.4-10.2); Carbon Dioxide 24 mmol/L (22-30); Chloride 107 mmol/L (98-107); Glucose 117 mg/dL (74-99); Magnesium 2.5 mg/dL (1.6-2.3); Non-African American GFR(CKD) >90 (>60 ml/min/1.73 sqM); Sodium 137 mmol/L (137-145); Total Bilirubin 1.3 mg/dL (0.2-1.3); Total Protein 4.8 g/dL (6.3-8.2)
--- NOTE | 2024-06-16 14:38 | XR ---
EXAMINATION TYPE: XR chest 1V DATE OF EXAM: 06/16/2024 2:32 PM COMPARISON: Chest radiographs CLINICAL INDICATION: Male, 49 years old with history of [place] placement; [facility] TECHNIQUE: XR chest 1V Frontal view of the chest. FINDINGS: Lungs/Pleura: There is no evidence of pleural effusion, focal consolidation, or pneumothorax. Pulmonary vascularity: Pulmonary vascular congestion. Heart/mediastinum: Cardiomediastinal silhouette is unremarkable. Atherosclerotic calcifications are seen in the aorta. Left atrial appendage occlusion device is present. Musculoskeletal: No acute osseous pathology. Midline sternotomy wires are noted. Other findings: None Lines/Tubes: Endotracheal tube with distal tip 2.9cm above the elisa. Nasogastric tube with its distal tip and side-port projecting under the diaphragm. Left thoracotomy tube is present without evidence of pneumothorax. Drainage tubes with tips projecting over the mediastinum. [place] scans catheter is coiled possibly within the right ventricle. IMPRESSION: 1. [place]-Aparna catheter appears to be coiled in abnormal position possibly in the right ventricle. Ass essment is a [place]-Aparna catheter recommended. 2. Postoperative changes mild pulmonary edema. [facility], , 06/16/2024 2:36 PM
[2024-06-16 15:10] LABS: Glucose,Whole Blood 132 mg/dL (70-110)
[2024-06-16] MEDS: CLEVIDIPINE BUTYRATE 25 MG in EMPTY BAG 1 BAG IV SCH (15:12)
[2024-06-16] MEDS: IPRATROPIUM-ALBUTEROL 3 ML NEB INHALATION SCH ×2 (15:12→20:31)
[2024-06-16] MEDS: DEXMEDETOMIDINE/0.9% NACL(PMX) 400 MCG in EMPTY BAG 1 BAG IV SCH (15:36)
[2024-06-16] MEDS: HEPARIN SODIUM,PORCINE 5,000 UNIT/ML 1 ML VIAL SQ SCH (15:57)
--- NOTE | 2024-06-16 16:12 | P.CNPUL ---
History of Present Illness Consult date: 06/16/24 Requesting physician: Wendy Pleitez Reason for consult: other (Mechanical ventilator/critical care management) Chief complaint: Coronary artery disease History of present illness: This is a 49-year-old male patient with a known history of chronic and ongoing tobacco dependence, chronic daily alcohol use including 1 pint daily, marijuana use hyperlipidemia who had undergone cardiac catheterization in March 2024 for ongoing chest pain. He was found to have a calcified left anterior descend ing artery, chronic total occlusion and collaterals from the right coronary system, chronically occluded third obtuse marginal branch as well as critical stenosis in the first obtuse marginal coronary artery and mild disease in the right coronary artery. He was recommended surgical revascularization. He was brought in today electively for the surgery. A double coronary artery bypass grafting utilizing the TEJADA to the LAD and the left radial artery from the aorta to the third obtuse marginal artery. Exclusion of left atrial appendage. He is today postoperatively in the intensive care unit. He is currently intubated on the mechanical ventilator and assist-control mode at a rate of 14, tidal volume 450, FiO2 100% and a PEEP of 10. Follow-up blood gases revealed a PaO2 of 405. pCO2 of 47 and a pH of 7.33. FiO2 was decreased to 60%. Cardiac output 5.2. Cardiac index 2.6. CVP 17. The [place]-Aparna catheter was inadvertently removed as it was coiled in the right ventricle. He is continued on propofol at 40 mcg/kg/min. Nitroglycerin at 5 mg/min. Insulin drip at 0.5 units/h. Normal saline at 40 mL/h. He has a mediastinal and left pleural chest tubes in place. Pacer wires in place. Favian wrap to the right upper forearm. Favian wraps to the bilateral lower extremities. Chest x-ray reveals endotracheal and nasogastric tubes in place. Left thoracotomy in place without evidence of pneumothorax. Chest tube in the mediastinum. White count 17.4. Hemoglobin 11.8. Platelets 146. INR 1.1. Sodium 137. Potassium 4.0. Bicarb 24. BUN 9. Creatinine 0.64. Glucose 124. Magnesium 2.5. He has been initiated on DuoNeb inhalations. Heparin for DVT prophylaxis Review of Systems ROS unobtainable: due to endotracheal tube Past Medical History Past Medical History: Coronary Artery Disease (CAD), Chest Pain / Angina, Hyperlipidemia, Hypertension Additional Past Medical History / Comment(s): chest pain radiating to left arm with numbness,SOB w/ activity,gout,hemorrhoids History of Any Multi-Drug Resistant Organisms: None Reported Past Surgical History: Heart Catheterization, Tonsillectomy Additional Past Surgical History / Comment(s): pierre ingrown toenails Past Anesthesia/Blood Transfusion Reactions: No Reported Reaction, Family History of Problems w/ Anesthesia Additional Past Anesthesia/Blood Transfusion Reaction / Comment(s): no hx blood transfusion. mom has trouble waking up with anesthesia Smoking Status: Former smoker - Past Family History Mother Family Medical History: Cancer, Diabetes Mellitus Additional Family Medical History / Comment(s): breast CA Father Family Medical History: Coronary Artery Disease (CAD), CVA/TIA, Diabetes Mellitus Additional Family Medical History / Comment(s): Premature coronary artery disease, CABG mid 60s,mult CVAs Medications and Allergies Home Medications Medication Instructions Recorded Confirmed Type Aspirin 81 mg PO DAILY 04/06/24 06/10/24 History Metoprolol Tartrate [Lopressor] 50 mg PO BID #0 04/08/24 06/10/24 Rx Nitroglycerin Sl Tabs [Nitrostat] 0.4 mg SUBLINGUAL Q5M PRN #25 tab 04/08/24 06/10/24 Rx Mupirocin [Mupirocin 2%] 1 applic NASAL BID #1 tub 04/09/24 06/10/24 Rx Atorvastatin [Lipitor] 40 mg PO DAILY #30 tablet 04/13/24 06/10/24 Rx Thiamine [Vitamin B-1] 100 mg PO DAILY #30 tablet 04/13/24 06/10/24 Rx Allergies Allergy/AdvReac Type Severity Reaction Status Date / Time isosorbide AdvReac severe Verified 06/10/24 15:19 bounding FREEMAN,sweats,fever,vomiting Physical Exam Vitals: Vital Signs Temp Pulse Pulse Resp BP BP Pulse Ox 06/16/24 15:31 06/16/24 15:30 90 14 100 06/16/24 15:28 88 06/16/24 15:20 88 06/16/24 15:15 84 20 100 06/16/24 15:08 06/16/24 15:00 82 14 100 06/16/24 14:45 77 22 100 06/16/24 14:30 82 16 100 06/16/24 14:22 06/16/24 14:15 71 16 100 06/16/24 14:00 69 16 100 06/16/24 13:57 06/16/24 13:47 18 99 06/16/24 13:45 06/16/24 06:11 97.3 F L 77 16 150/101 156/96 98 FiO2 06/16/24 15:31 40 06/16/24 15:30 06/16/24 15:28 06/16/24 15:20 06/16/24 15:15 06/16/24 15:08 40 06/16/24 15:00 06/16/24 14:45 06/16/24 14:30 06/16/24 14:22 40 06/16/24 14:15 06/16/24 14:00 06/16/24 13:57 100 06/16/24 13:47 06/16/24 13:45 100 06/16/24 06:11 Intake and Output 06/16/24 06/16/24 06/16/24 06:59 14:59 22:59 Intake Total 100 103 50.589 Output Total 1140 110 Balance 100 -1037 -59.411 Intake: IV 100 103 50 Sodium Chloride 0.9% 1, 50 50 000 ml @ 50 mls/hr IV . Q20H NAVI Rx#:[id number] Intake, IV Titration 0.589 Amount Insulin Regular 100 unit 0.589 In Sodium Chloride 0.9% 100 ml @ Per Protocol IV .Q0M NAVI Rx#:[id number] Output: Chest Tube Drainage 210 50 Left Pleural 110 20 Right Pleural/Mediastinal 100 30 Drainage 0 20 Left Forearm WILDER 0 20 Urine 430 40 Estimated Blood Loss 500 Other: Voiding Method Indwelling Catheter Weight 92.3 kg ABP, PAP, CO, CI - Last 8 Hours Arterial Blood Pressure 117/61 Arterial Blood Pressure 102/66 Arterial Blood Pressure 121/69 Arterial Blood Pressure 125/62 Arterial Blood Pressure 120/57 Arterial Blood Pressure 122/63 Arterial Blood Pressure 91/37 Pulmonary Artery Pressure 28/20 Pulmonary Artery Pressure 29/19 Pulmonary Artery Pressure 32/12 Cardiac Output 5.2 Cardiac Index 2.6 GENERAL EXAM: Intubated, sedated 49-year-old male, in no apparent distress. HEAD: Normocephalic. EYES: Sluggish reaction of pupils, equal size. NOSE: Clear with pink turbinates. THROAT: Oral endotracheal and gastric tube secured in place. No erythema or exudates. NECK: Right IJ cordis in place. No masses, no JVD. CHEST: Sternal dressing dry and intact. Mediastinal and left chest tubes in place. Pacer wires in place. LUNGS: Equal air entry with no crackles, wheeze, rhonchi or dullness. CVS: S1 and S2 normal with no audible murmur, regular rhythm. ABDOMEN: No hepatosplenomegaly, no guarding or rigidity. SPINE: No scoliosis or deformity SKIN: No rashes CENTRAL NERVOUS SYSTEM: Sedated, tone is normal in all 4 extremities. EXTREMITIES: Left upper extremity Favian wrap in place. Bilateral lower extremity Favian wraps in place. Peripheral pulses are intact. Results - Laboratory Findings CBC and BMP: 06/16/24 13:50 06/16/24 13:50 ABG ABG pH 7.33 (7.35-7.45) L 06/16/24 14:17 ABG pCO2 47 mmHg (35-45) H 06/16/24 14:17 ABG pO2 405 mmHg (83-108) H 06/16/24 14:17 ABG O2 Saturation >100.0 % (94-97) H 06/16/24 14:17 PT/INR, D-dimer PT 12.2 sec (10.0-12.5) 06/16/24 13:50 INR 1.1 (<1.2) 06/16/24 13:50 Abnormal lab findings: Abnormal Labs 06/10/24 06/16/24 06/16/24 13:09 06:21 08:32 WBC RBC Hgb Hct Plt Count Neutrophils # ABG pH ABG pCO2 ABG pO2 125 H ABG Total CO2 ABG O2 Saturation 98.7 H ABG Hematocrit ABG Potassium ABG Ionized Calcium ABG Glucose 123 H ABG Lactic Acid Hemoglobin Creatinine Glucose POC Glucose (mg/dL) 130 H Magnesium Total Protein Albumin Arterial Blood Potassium Arterial Blood Glucose 123 H Crossmatch See Detail 06/16/24 06/16/24 06/16/24 10:07 11:04 11:30 WBC RBC Hgb Hct Plt Count Neutrophils # ABG pH ABG pCO2 ABG pO2 208 H >420 H 420 H ABG Total CO2 ABG O2 Saturation 99.3 H >99.4 H >99.4 H ABG Hematocrit 26 L 28 L ABG Potassium 3.3 L 3.3 L ABG Ionized Calcium 3.9 L 4.0 L ABG Glucose 152 H 123 H 153 H ABG Lactic Acid 2.1 H Hemoglobin 11.2 L 8.6 L 9.0 L Creatinine Glucose POC Glucose (mg/dL) Magnesium Total Protein Albumin Arterial Blood Potassium 3.3 L 3.3 L Arterial Blood Glucose 152 H 123 H 153 H Crossmatch 06/16/24 06/16/24 06/16/24 11:55 13:05 13:25 WBC RBC Hgb Hct Plt Count Neutrophils # ABG pH ABG pCO2 ABG pO2 355 H 64 L 381 H ABG Total CO2 ABG O2 Saturation >99.4 H 93.9 L >99.4 H ABG Hematocrit 28 L 32 L 33 L ABG Potassium ABG Ionized Calcium 4.2 L ABG Glucose 164 H 148 H 131 H ABG Lactic Acid 2.2 H* 3.0 H* 2.9 H* Hemoglobin 9.3 L 10.4 L 10.7 L Creatinine Glucose POC Glucose (mg/dL) Magnesium Total Protein Albumin Arterial Blood Potassium Arterial Blood Glucose 164 H 148 H 131 H Crossmatch 06/16/24 06/16/24 06/16/24 13:48 13:50 13:50 WBC 17.4 H RBC 3.49 L Hgb 11.8 L Hct 32.3 L Plt Count 146 L Neutrophils # 14.7 H ABG pH ABG pCO2 ABG pO2 ABG Total CO2 ABG O2 Saturation ABG Hematocrit ABG Potassium ABG Ionized Calcium ABG Glucose ABG Lactic Acid Hemoglobin Creatinine 0.64 L Glucose 117 H POC Glucose (mg/dL) 124 H Magnesium 2.5 H Total Protein 4.8 L Albumin 3.0 L Arterial Blood Potassium Arterial Blood Glucose Crossmatch 06/16/24 06/16/24 14:17 15:06 WBC RBC Hgb Hct Plt Count Neutrophils # ABG pH 7.33 L ABG pCO2 47 H ABG pO2 405 H ABG Total CO2 27 H ABG O2 Saturation >100.0 H ABG Hematocrit ABG Potassium ABG Ionized Calcium ABG Glucose ABG Lactic Acid Hemoglobin 12.0 L Creatinine Glucose POC Glucose (mg/dL) 132 H Magnesium Total Protein Albumin Arterial Blood Potassium Arterial Blood Glucose Crossmatch - Diagnostic Findings Chest x-ray: image reviewed Assessment and Plan Assessment: Coronary artery disease s/p coronary artery bypass grafting utilizing a TEJADA to the LAD, left radial artery from the aorta to the third obtuse marginal artery. Exclusion of left atrial appendage. Postoperative day #0 Mechanical ventilation management, expected outcome of surgery Chronic and ongoing tobacco dependence Chronic daily alcohol use 1 pint daily Chronic daily marijuana use Hyperlipidemia Hypertension Family history of premature coronary artery disease Plan: The patient was seen and evaluated Chest x-ray, ABGs, labs and medications reviewed Decrease the FiO2 to 60% Plan for early extubation protocol as tolerated Continue bronchodilators every 4 hours Heparin for DVT prophylaxis We will continue to follow and make further recommendations based on his clinical status I have personally seen and examined the patient, performed the documentation and the assessment and plan as written. Number of minutes spent on the visit: 20 Dictation was produced using [employer] dictation software. Please excuse any grammatical, word or spelling errors.
[2024-06-16] MEDS: ALBUMIN HUMAN 5% 250 ML in EMPTY BAG 1 BAG IVPB PRN (16:15)
[2024-06-16 16:34] LABS: Glucose,Whole Blood 159 mg/dL (70-110)
[2024-06-16 16:54] LABS: Basophils % (A) 0 %; Eosinophils % (A) 0 %; HGB 11.6 gm/dL (13.0-17.5); Lymphocytes # (A) 1.2 k/uL (1.0-4.8); Lymphocytes % (A) 8 %; MCH 33.7 pg (25.0-35.0); MCHC 36.2 g/dL (31.0-37.0); MCV 93.2 fL (80.0-100.0); Mean Platelet Volume 8.7; Monocytes # (A) 0.9 k/uL (0-1.0); Monocytes % (A) 6 %; Neutrophils # (A) 12.9 k/uL (1.3-7.7); Neutrophils % (A) 85 %; Platelet Count 165 k/uL (150-450); RBC 3.43 m/uL (4.30-5.90); RDW 12.9 % (11.5-15.5); WBC 15.2 k/uL (3.8-10.6)
[2024-06-16 17:14] LABS: ABG Base Excess -1.8 mmol/L; ABG HCO3 23 mmol/L (21-25); ABG Oxygen Saturation 99.1 % (94-97); ABG PCO2 41 mmHg (35-45); ABG PH 7.37 (7.35-7.45); ABG PO2 114 mmHg (83-108); ABG TCO2 25 mmol/L (19-24)
[2024-06-16 17:16] LABS: Glucose,Whole Blood 169 mg/dL (70-110)
[2024-06-16 17:17] LABS: Allen Test Performed? no
[2024-06-16] MEDS: DEXAMETHASONE SOD PHOSPHATE 4 MG/ML 1 ML VIAL IVP STA (17:24)
[2024-06-16] MEDS: ACETAMINOPHEN IV (For NPO) 1,000 MG in EMPTY BAG 1 BAG IVPB SCH (17:25)
[2024-06-16 18:08] LABS: Glucose,Whole Blood 154 mg/dL (70-110)
[2024-06-16] MEDS: MORPHINE SULFATE 2 MG/ML SYRINGE IVP PRN (18:25)
[2024-06-16 19:02] LABS: Glucose,Whole Blood 139 mg/dL (70-110)
[2024-06-16 19:57] LABS: Glucose,Whole Blood 152 mg/dL (70-110)
[2024-06-16 20:04] LABS: Basophils % (A) 0 %; Eosinophils % (A) 0 %; HCT 33.1 % (39.0-53.0); HGB 11.8 gm/dL (13.0-17.5); Lymphocytes # (A) 0.5 k/uL (1.0-4.8); Lymphocytes % (A) 4 %; MCH 33.2 pg (25.0-35.0); MCHC 35.7 g/dL (31.0-37.0); MCV 92.9 fL (80.0-100.0); Mean Platelet Volume 8.4; Monocytes # (A) 0.6 k/uL (0-1.0); Monocytes % (A) 4 %; Neutrophils # (A) 13.1 k/uL (1.3-7.7); Neutrophils % (A) 92 %; Platelet Count 158 k/uL (150-450); RBC 3.56 m/uL (4.30-5.90); RDW 12.9 % (11.5-15.5); WBC 14.3 k/uL (3.8-10.6)
[2024-06-16] MEDS: SYMBICORT 160-4.5 MCG INHALER INHALATION SCH (20:31)
[2024-06-16 21:02] LABS: Glucose,Whole Blood 144 mg/dL (70-110)
[2024-06-16] MEDS: SENNOSIDES-DOCUSATE SODIUM 1 EACH TAB PO SCH (21:19)
[2024-06-16] MEDS: MUPIROCIN 2% OINT 22 GM TUBE NASAL SCH (21:20)
[2024-06-16] MEDS: AMIODARONE 200 MG TAB PO SCH (21:20)
[2024-06-16 22:08] LABS: Glucose,Whole Blood 136 mg/dL (70-110)
[2024-06-16 22:58] LABS: Glucose,Whole Blood 130 mg/dL (70-110)
[2024-06-16] MEDS: DEXAMETHASONE SOD PHOSPHATE 4 MG/ML 1 ML VIAL IVP ONE (23:55)
[2024-06-17 00:09] LABS: Glucose,Whole Blood 118 mg/dL (70-110)
[2024-06-17] MEDS: KETOROLAC 15 MG/ML 1 ML VIAL IVP SCH (00:09)
[2024-06-17 02:07] LABS: Glucose,Whole Blood 126 mg/dL (70-110)
[2024-06-17 03:05] LABS: Glucose,Whole Blood 117 mg/dL (70-110)
[2024-06-17 03:17] LABS: Basophils % (A) 0 %; Eosinophils % (A) 0 %; HCT 30.8 % (39.0-53.0); HGB 11.1 gm/dL (13.0-17.5); Lymphocytes % (A) 6 %; MCH 33.2 pg (25.0-35.0); MCHC 36.2 g/dL (31.0-37.0); MCV 91.9 fL (80.0-100.0); Mean Platelet Volume 9.9; Monocytes % (A) 6 %; Neutrophils # (A) 14.1 k/uL (1.3-7.7); Neutrophils % (A) 87 %; Platelet Count 156 k/uL (150-450); RBC 3.35 m/uL (4.30-5.90); RDW 13.4 % (11.5-15.5); WBC 16.2 k/uL (3.8-10.6)
[2024-06-17 04:01] LABS: Ionized Calcium 4.9 mg/dL (4.5-5.3)
[2024-06-17 04:10] LABS: ALT 16 U/L (4-49); AST 42 U/L (17-59); African American GFR (CKD) >90 (>60 ml/min/1.73 sqM); Albumin 3.5 g/dL (3.5-5.0); Alkaline Phosphatase 42 U/L (38-126); Anion Gap 7 mmol/L; Blood Urea Nitrogen 9 mg/dL (9-20); Calcium 8.8 mg/dL (8.4-10.2); Carbon Dioxide 23 mmol/L (22-30); Chloride 107 mmol/L (98-107); Glucose 109 mg/dL (74-99); Magnesium 2.1 mg/dL (1.6-2.3); Non-African American GFR(CKD) >90 (>60 ml/min/1.73 sqM); Potassium 3.6 mmol/L (3.5-5.1); Sodium 137 mmol/L (137-145); Total Bilirubin 1.8 mg/dL (0.2-1.3); Total Protein 5.3 g/dL (6.3-8.2)
[2024-06-17 04:15] LABS: Glucose,Whole Blood 111 mg/dL (70-110)
[2024-06-17 05:00] LABS: Glucose,Whole Blood 121 mg/dL (70-110)
[2024-06-17] MEDS: POTASSIUM CHLORIDE ER 20 MEQ TAB.ER PO SCH ×3 (05:16→21:20)
[2024-06-17 06:08] LABS: Glucose,Whole Blood 129 mg/dL (70-110)
[2024-06-17 06:55] LABS: Glucose,Whole Blood 126 mg/dL (70-110)
--- NOTE | 2024-06-17 07:06 | XR ---
EXAMINATION TYPE: XR chest 1V portable DATE OF EXAM: 06/17/2024 CLINICAL HISTORY: Postoperative cardiac surgery. TECHNIQUE: Single AP portable frontal upright view of the chest is obtained. COMPARISON: Chest x-ray from one day earlier FINDINGS: Interval extubation with removal of endotracheal and orogastric tubes. There is new right internal jugular coronary sheath replacing [place]-Aparna catheter. There is persistent mediastinal drain age catheter and left-sided chest tube. No obvious left-sided pneumothorax. There are new sternal wir es along with mediastinal clips and left atrial appendage clip. Heart size is upper limits of normal. Increased opacities bilaterally. Osseous structures are intact. IMPRESSION: Interval extubation. Persistent cardiomegaly with with slight worsening central vascular congestion and developing left basilar acute infiltrate and/or atelectasis. [facility], , 06/17/2024 7:04 AM
[2024-06-17] MEDS: ALBUMIN HUMAN 25% 50 ML in EMPTY BAG 1 BAG IVPB ONE (07:30)
[2024-06-17] MEDS: PANTOPRAZOLE 40 MG/10 ML VIAL IVP SCH (08:27)
[2024-06-17] MEDS: ONDANSETRON 4 MG/2 ML VIAL IVP PRN (08:41)
[2024-06-17] MEDS: CLOPIDOGREL 75 MG TAB PO SCH (08:48)
[2024-06-17] MEDS: ASPIRIN 325 MG TAB PO SCH (08:48)
[2024-06-17] MEDS: FOLIC ACID 1 MG TAB PO SCH (08:48)
[2024-06-17] MEDS: ATORVASTATIN 40 MG TAB PO SCH (08:49)
[2024-06-17] MEDS: THIAMINE 100 MG TAB PO SCH (08:55)
[2024-06-17 09:01] LABS: Glucose,Whole Blood 114 mg/dL (70-110)
--- NOTE | 2024-06-17 09:08 | CONS ---
CONSULTATION HISTORY OF PRESENT ILLNESS: Vini is a 49-year-old gentleman who underwent bypass surgery with TEJADA to LAD and left radial artery graft to the OM branch with exclusion of the left atrial appendage with device. Today is postop day #1. He is stable hemodynamically. Heart rate is 84 beats per minute, blood pressure is 93/50, respiratory rate is 18. He was extubated yesterday. CURRENT MEDICATIONS: Include: 1. Lopressor. 2. Aspirin. 3. Lipitor. 4. Plavix. 5. Hydralazine on a p.r.n. basis. PAST MEDICAL HISTORY: Significant for coronary artery disease. MEDICATIONS AT HOME: Include: 1. Aspirin. 2. Lipitor. 3. Lopressor. FAMILY HISTORY: Negative for premature coronary artery disease. SOCIAL HISTORY: Significant for EtOH abuse. REVIEW OF SYSTEMS: 14 out of 14 review of systems has been performed. Pertinents are as documented. PHYSICAL EXAMINATION: VITAL SIGNS: Heart rate is 89 beats per minute, blood pressure 94/62, respiratory rate is 18. CHEST: Reveals diminished air entry at the bases. HEART: Reveals first and second heart sounds. No gallop. EXTREMITIES: Reveal mild edema bilaterally. LABORATORY DATA: Show hemoglobin of 11.1, potassium is 3.6, creatinine is 0.6. ASSESSMENT AND PLAN: Coronary artery disease status post coronary artery bypass graft with left internal mammary artery to left anterior descending and radial artery graft to obtuse marginal branch. Today is postop day #1, doing well and will continue current medications. MMODL / IJN: [id number] /
--- NOTE | 2024-06-17 09:28 | P.PN ---
Subjective Progress Note Date: 06/17/24 Principal diagnosis: Double vessel coronary artery disease with a totally occluded left anterior descending artery, with preserved left ventricular function. Past medical history significant for hyperlipidemia, hypertension, chronic ongoing tobacco dependence, quit smoking May 26, 2024, and chronic EtOH abuse, quit drinking May 26, 2024. POD #1 total arterial double coronary artery bypass grafting using the in situ left internal mammary artery to the left anterior descending coronary artery, the left radial from the aorta to the third obtuse marginal coronary artery, exclusion of the left atrial appendage using a 35mm atrial clip, endoscopic harvesting of the left radial artery, intraoperative graft flow measurements using the [employer] system, epiaortic scanning and intraoperative transesophageal echocardiogram completed by anesthesia. Postoperative acute blood loss anemia, expected given hemodilution and cardiopulmonary bypass. The patient was seen and examined in follow-up today June 17, 2024 at his bedside in the intensive care unit. The patient was successfully extubated last evening at 6:50 PM, is currently on 2 L nasal cannula with oxygen saturation is 99%. He is achieving 500 mL on his incentive spirometry with encouragement. He denies any complaints of shortness of breath at this time, although he is complaining of some surgical type pain to his chest tube insertion sites, rating his pain 8-9 out of 10 on the pain scale currently. Toradol was added for additional pain control. Right IJ cordis remains in place with current CVP 4 mmHg. Mediastinal and left pleural chest tubes remain in place to low continuous wall suction -20 cm H2O. No air leak is present. Left pleural chest tube draining 45 mL of thin serosanguineous drainage in the last 8 hours and 210 mL output since surgery. Mediastinal chest tubes draining thin serosanguineous drainage with 180 mL output in the last 8 hours and 520 mL output since surgery. He remains hemodynamically stable and is currently on no inotropic or pressor support. Insulin drip remains infusing per protocol. Laboratory and chest x- ray results were reviewed. Objective - Vital Signs Vital signs: Vital Signs Temp 98.3 F 06/17/24 04:00 Pulse 89 06/17/24 07:15 Resp 19 06/17/24 07:15 BP 95/62 06/17/24 07:15 Pulse Ox 98 06/17/24 07:15 FiO2 40 06/16/24 16:45 Intake & Output 0106/17/24 06/17/24 18:59 06:59 18:59 Intake Total 781.700 8667.610 62.775 Output Total 1695 853 87 Balance -810.964 732.610 -24.225 Weight 92.5 kg Intake: IV 853 1516 56 ACETAMINOPHEN IV (For NPO 100 ) 1,000 mg In Empty Bag 1 bag @ 400 mls/hr IVPB Q6HR [facility] Rx#:[id number] Albumin Human 5% 250 ml 500 750 In Empty Bag 1 bag @ 250 mls/hr IVPB Q1HR PRN Rx#: [id number] [place] and CVP 66 6 Sodium Chloride 0.9% 1, 300 550 50 000 ml @ 20 mls/hr IV . Q24H [facility] Rx#:[id number] ceFAZolin 2 gm In Sodium 50 Chloride 0.9% 50 ml @ 100 mls/hr IVPB Q8HR [facility] Rx# :[id number] Intake, IV Titration 31.036 69.610 6.775 Amount Dexmedetomidine/0.9% NaCl 25.346 16.038 (Pmx) 400 mcg In Empty Bag 1 bag @ Titrate IV . Q0M [facility] Rx#:[id number] Insulin Regular 100 unit 5.690 25.974 6.775 In Sodium Chloride 0.9% 100 ml @ Per Protocol IV .Q0M [facility] Rx#:[id number] propofoL 1,000 mg In 27.598 Empty Bag 1 bag @ Titrate IV .Q0M [facility] Rx#: [id number] Output: Chest Tube Drainage 400 318 42 Left Pleural 130 68 32 Right Pleural/Mediastinal 270 250 10 Drainage 20 Left Forearm WILDER 20 Urine 775 535 45 Estimated Blood Loss 500 Other: Voiding Method Indwelling Catheter Indwelling Catheter ABP, PAP, CO, CI - Last Documented Arterial Blood Pressure 111/54 Pulmonary Artery Pressure 28/20 Cardiac Output 5.2 Cardiac Index 2.6 - Exam CONSTITUTIONAL: Sitting up to the bedside chair in the intensive care unit, appears comfortable, cooperative, no apparent acute distress. HEENT: Neck is supple, no JVD, no lymphadenopathy. Right IJ Cordis in place and functioning. RESPIRATORY: Lungs sounds essentially clear throughout, diminished to his bilateral bases. Respirations are symmetrical and nonlabored. Currently on 2 L nasal cannula with oxygen saturations 99%. Able to achieve 500 mL on their incentive spirometry. Strong cough. CARDIOVASCULAR: Regular rhythm and rate. S1 and S2 present, negative for S3, gallop or murmur. Sternum is stable. Palpable peripheral pulses bilaterally, +1 edema to his bilateral lower extremities. No calf pain or tenderness noted. Heart hugger in place with patient demonstrating appropriate use. Knee-high EUFEMIA hose and sequential compression devices in place to his bilateral lower extremities. GASTROINTESTINAL: Abdomen soft, nontender, nondistended. Hypoactive bowel sounds present 4 quadrants. Tolerating diet. Passing flatus. No guarding or rigidity. GENITOURINARY: Martinez present draining clear, yellow urine. Urine output 405 mL in the last 8 hours. INTEGUMENTARY: Skin is warm and dry with no evidence of clubbing or cyanosis. Midline sternal incision clean dry and well approximated, covered with dry intact dressing. Left arm radial artery harvest sites clean, dry and approximated. No drainage or redness is present. NEUROLOGIC: Cranial nerves II through XII intact. No focal deficits. MUSKULOSKELETAL: Able to move all extremities, strength equal bilaterally, generalized weakness. PSYCHIATRIC: Alert and oriented to person place and time, appropriate affect, intact judgment and insight. INVASIVE LINES AND TUBES: Mediastinal/left pleural chest tubes present and connected to low continuous wall suction, no air leaks present. Mediastinal tube with 180 mL of thin serosanguineous drainage overnight, 520 mL output in the last 24 hours. Left pleural chest tube with 45 mL of thin serosanguineous drainage overnight,210 mL output in the last 24 hours. Atrial epicardial pacemaker wires present, connected to generator, AAI backup rate 50 bpm. Right internal jugular Cordis, right radial arterial line present. Current CVP 11 mmHg. Left arm WILDER drain in place with scant thin serosanguineous drainage. - Allied health notes Allied health notes reviewed: nursing - Labs CBC & Chem 7: 06/17/24 03:08 06/17/24 03:08 Labs: Abnormal Lab Results - Last 24 Hours (Table) 06/10/24 06/16/24 06/16/24 Range/Units 13:09 08:32 10:07 WBC (3.8-10.6) k/uL RBC (4.30-5.90) m/uL Hgb (13.0-17.5) gm/dL Hct (39.0-53.0) % Plt Count (150-450) k/uL Neutrophils # (1.3-7.7) k/uL Lymphocytes # (1.0-4.8) k/uL ABG pH (7.35-7.45) ABG pCO2 (35-45) mmHg ABG pO2 125 H 208 H (83-108) mmHg ABG Total CO2 (19-24) mmol/L ABG O2 Saturation 98.7 H 99.3 H (94-97) % ABG Hematocrit (34.0-46.0) % ABG Potassium 3.3 L (3.4-4.5) mmol/L ABG Ionized Calcium (4.5-5.3) mg/dL ABG Glucose 123 H 152 H (75-99) mg/dL ABG Lactic Acid (0.5-1.6) mmol/L Hemoglobin 11.2 L (13.0-17.5) gm/dL Creatinine (0.66-1.25) mg/dL Glucose (74-99) mg/dL POC Glucose (mg/dL) (70-110) mg/dL Magnesium (1.6-2.3) mg/dL Total Bilirubin (0.2-1.3) mg/dL Total Protein (6.3-8.2) g/dL Albumin (3.5-5.0) g/dL Arterial Blood Potassium 3.3 L (3.4-4.5) mmol/L Arterial Blood Glucose 123 H 152 H (75-99) mg/dL Crossmatch See Detail 06/16/24 06/16/24 06/16/24 Range/Units 11:04 11:30 11:55 WBC (3.8-10.6) k/uL RBC (4.30-5.90) m/uL Hgb (13.0-17.5) gm/dL Hct (39.0-53.0) % Plt Count (150-450) k/uL Neutrophils # (1.3-7.7) k/uL Lymphocytes # (1.0-4.8) k/uL ABG pH (7.35-7.45) ABG pCO2 (35-45) mmHg ABG pO2 >420 H 420 H 355 H (83-108) mmHg ABG Total CO2 (19-24) mmol/L ABG O2 Saturation >99.4 H >99.4 H >99.4 H (94-97) % ABG Hematocrit 26 L 28 L 28 L (34.0-46.0) % ABG Potassium 3.3 L (3.4-4.5) mmol/L ABG Ionized Calcium 3.9 L 4.0 L 4.2 L (4.5-5.3) mg/dL ABG Glucose 123 H 153 H 164 H (75-99) mg/dL ABG Lactic Acid 2.1 H 2.2 H* (0.5-1.6) mmol/L Hemoglobin 8.6 L 9.0 L 9.3 L (13.0-17.5) gm/dL Creatinine (0.66-1.25) mg/dL Glucose (74-99) mg/dL POC Glucose (mg/dL) (70-110) mg/dL Magnesium (1.6-2.3) mg/dL Total Bilirubin (0.2-1.3) mg/dL Total Protein (6.3-8.2) g/dL Albumin (3.5-5.0) g/dL Arterial Blood Potassium 3.3 L (3.4-4.5) mmol/L Arterial Blood Glucose 123 H 153 H 164 H (75-99) mg/dL Crossmatch 06/16/24 06/16/24 06/16/24 Range/Units 13:05 13:25 13:48 WBC (3.8-10.6) k/uL RBC (4.30-5.90) m/uL Hgb (13.0-17.5) gm/dL Hct (39.0-53.0) % Plt Count (150-450) k/uL Neutrophils # (1.3-7.7) k/uL Lymphocytes # (1.0-4.8) k/uL ABG pH (7.35-7.45) ABG pCO2 (35-45) mmHg ABG pO2 64 L 381 H (83-108) mmHg ABG Total CO2 (19-24) mmol/L ABG O2 Saturation 93.9 L >99.4 H (94-97) % ABG Hematocrit 32 L 33 L (34.0-46.0) % ABG Potassium (3.4-4.5) mmol/L ABG Ionized Calcium (4.5-5.3) mg/dL ABG Glucose 148 H 131 H (75-99) mg/dL ABG Lactic Acid 3.0 H* 2.9 H* (0.5-1.6) mmol/L Hemoglobin 10.4 L 10.7 L (13.0-17.5) gm/dL Creatinine (0.66-1.25) mg/dL Glucose (74-99) mg/dL POC Glucose (mg/dL) 124 H (70-110) mg/dL Magnesium (1.6-2.3) mg/dL Total Bilirubin (0.2-1.3) mg/dL Total Protein (6.3-8.2) g/dL Albumin (3.5-5.0) g/dL Arterial Blood Potassium (3.4-4.5) mmol/L Arterial Blood Glucose 148 H 131 H (75-99) mg/dL Crossmatch 06/16/24 06/16/24 06/16/24 Range/Units 13:50 13:50 14:17 WBC 17.4 H (3.8-10.6) k/uL RBC 3.49 L (4.30-5.90) m/uL Hgb 11.8 L (13.0-17.5) gm/dL Hct 32.3 L (39.0-53.0) % Plt Count 146 L (150-450) k/uL Neutrophils # 14.7 H (1.3-7.7) k/uL Lymphocytes # (1.0-4.8) k/uL ABG pH 7.33 L (7.35-7.45) ABG pCO2 47 H (35-45) mmHg ABG pO2 405 H (83-108) mmHg ABG Total CO2 27 H (19-24) mmol/L ABG O2 Saturation >100.0 H (94-97) % ABG Hematocrit (34.0-46.0) % ABG Potassium (3.4-4.5) mmol/L ABG Ionized Calcium (4.5-5.3) mg/dL ABG Glucose (75-99) mg/dL ABG Lactic Acid (0.5-1.6) mmol/L Hemoglobin 12.0 L (13.0-17.5) gm/dL Creatinine 0.64 L (0.66-1.25) mg/dL Glucose 117 H (74-99) mg/dL POC Glucose (mg/dL) (70-110) mg/dL Magnesium 2.5 H (1.6-2.3) mg/dL Total Bilirubin (0.2-1.3) mg/dL Total Protein 4.8 L (6.3-8.2) g/dL Albumin 3.0 L (3.5-5.0) g/dL Arterial Blood Potassium (3.4-4.5) mmol/L Arterial Blood Glucose (75-99) mg/dL Crossmatch 06/16/24 06/16/24 06/16/24 Range/Units 15:06 16:32 16:40 WBC 15.2 H (3.8-10.6) k/uL RBC 3.43 L (4.30-5.90) m/uL Hgb 11.6 L (13.0-17.5) gm/dL Hct 32.0 L (39.0-53.0) % Plt Count (150-450) k/uL Neutrophils # 12.9 H (1.3-7.7) k/uL Lymphocytes # (1.0-4.8) k/uL ABG pH (7.35-7.45) ABG pCO2 (35-45) mmHg ABG pO2 (83-108) mmHg ABG Total CO2 (19-24) mmol/L ABG O2 Saturation (94-97) % ABG Hematocrit (34.0-46.0) % ABG Potassium (3.4-4.5) mmol/L ABG Ionized Calcium (4.5-5.3) mg/dL ABG Glucose (75-99) mg/dL ABG Lactic Acid (0.5-1.6) mmol/L Hemoglobin (13.0-17.5) gm/dL Creatinine (0.66-1.25) mg/dL Glucose (74-99) mg/dL POC Glucose (mg/dL) 132 H 159 H (70-110) mg/dL Magnesium (1.6-2.3) mg/dL Total Bilirubin (0.2-1.3) mg/dL Total Protein (6.3-8.2) g/dL Albumin (3.5-5.0) g/dL Arterial Blood Potassium (3.4-4.5) mmol/L Arterial Blood Glucose (75-99) mg/dL Crossmatch 06/16/24 06/16/24 06/16/24 Range/Units 17:12 17:15 18:07 WBC (3.8-10.6) k/uL RBC (4.30-5.90) m/uL Hgb (13.0-17.5) gm/dL Hct (39.0-53.0) % Plt Count (150-450) k/uL Neutrophils # (1.3-7.7) k/uL Lymphocytes # (1.0-4.8) k/uL ABG pH (7.35-7.45) ABG pCO2 (35-45) mmHg ABG pO2 114 H (83-108) mmHg ABG Total CO2 25 H (19-24) mmol/L ABG O2 Saturation 99.1 H (94-97) % ABG Hematocrit (34.0-46.0) % ABG Potassium (3.4-4.5) mmol/L ABG Ionized Calcium (4.5-5.3) mg/dL ABG Glucose (75-99) mg/dL ABG Lactic Acid (0.5-1.6) mmol/L Hemoglobin 11.5 L (13.0-17.5) gm/dL Creatinine (0.66-1.25) mg/dL Glucose (74-99) mg/dL POC Glucose (mg/dL) 169 H 154 H (70-110) mg/dL Magnesium (1.6-2.3) mg/dL Total Bilirubin (0.2-1.3) mg/dL Total Protein (6.3-8.2) g/dL Albumin (3.5-5.0) g/dL Arterial Blood Potassium (3.4-4.5) mmol/L Arterial Blood Glucose (75-99) mg/dL Crossmatch 06/16/24 06/16/24 06/16/24 Range/Units 19:01 19:43 19:56 WBC 14.3 H (3.8-10.6) k/uL RBC 3.56 L (4.30-5.90) m/uL Hgb 11.8 L (13.0-17.5) gm/dL Hct 33.1 L (39.0-53.0) % Plt Count (150-450) k/uL Neutrophils # 13.1 H (1.3-7.7) k/uL Lymphocytes # 0.5 L (1.0-4.8) k/uL ABG pH (7.35-7.45) ABG pCO2 (35-45) mmHg ABG pO2 (83-108) mmHg ABG Total CO2 (19-24) mmol/L ABG O2 Saturation (94-97) % ABG Hematocrit (34.0-46.0) % ABG Potassium (3.4-4.5) mmol/L ABG Ionized Calcium (4.5-5.3) mg/dL ABG Glucose (75-99) mg/dL ABG Lactic Acid (0.5-1.6) mmol/L Hemoglobin (13.0-17.5) gm/dL Creatinine (0.66-1.25) mg/dL Glucose (74-99) mg/dL POC Glucose (mg/dL) 139 H 152 H (70-110) mg/dL Magnesium (1.6-2.3) mg/dL Total Bilirubin (0.2-1.3) mg/dL Total Protein (6.3-8.2) g/dL Albumin (3.5-5.0) g/dL Arterial Blood Potassium (3.4-4.5) mmol/L Arterial Blood Glucose (75-99) mg/dL Crossmatch 06/16/24 06/16/24 06/16/24 Range/Units 21:01 22:06 22:56 WBC (3.8-10.6) k/uL RBC (4.30-5.90) m/uL Hgb (13.0-17.5) gm/dL Hct (39.0-53.0) % Plt Count (150-450) k/uL Neutrophils # (1.3-7.7) k/uL Lymphocytes # (1.0-4.8) k/uL ABG pH (7.35-7.45) ABG pCO2 (35-45) mmHg ABG pO2 (83-108) mmHg ABG Total CO2 (19-24) mmol/L ABG O2 Saturation (94-97) % ABG Hematocrit (34.0-46.0) % ABG Potassium (3.4-4.5) mmol/L ABG Ionized Calcium (4.5-5.3) mg/dL ABG Glucose (75-99) mg/dL ABG Lactic Acid (0.5-1.6) mmol/L Hemoglobin (13.0-17.5) gm/dL Creatinine (0.66-1.25) mg/dL Glucose (74-99) mg/dL POC Glucose (mg/dL) 144 H 136 H 130 H (70-110) mg/dL Magnesium (1.6-2.3) mg/dL Total Bilirubin (0.2-1.3) mg/dL Total Protein (6.3-8.2) g/dL Albumin (3.5-5.0) g/dL Arterial Blood Potassium (3.4-4.5) mmol/L Arterial Blood Glucose (75-99) mg/dL Crossmatch 06/17/24 06/17/24 06/17/24 Range/Units 00:08 02:06 03:02 WBC (3.8-10.6) k/uL RBC (4.30-5.90) m/uL Hgb (13.0-17.5) gm/dL Hct (39.0-53.0) % Plt Count (150-450) k/uL Neutrophils # (1.3-7.7) k/uL Lymphocytes # (1.0-4.8) k/uL ABG pH (7.35-7.45) ABG pCO2 (35-45) mmHg ABG pO2 (83-108) mmHg ABG Total CO2 (19-24) mmol/L ABG O2 Saturation (94-97) % ABG Hematocrit (34.0-46.0) % ABG Potassium (3.4-4.5) mmol/L ABG Ionized Calcium (4.5-5.3) mg/dL ABG Glucose (75-99) mg/dL ABG Lactic Acid (0.5-1.6) mmol/L Hemoglobin (13.0-17.5) gm/dL Creatinine (0.66-1.25) mg/dL Glucose (74-99) mg/dL POC Glucose (mg/dL) 118 H 126 H 117 H (70-110) mg/dL Magnesium (1.6-2.3) mg/dL Total Bilirubin (0.2-1.3) mg/dL Total Protein (6.3-8.2) g/dL Albumin (3.5-5.0) g/dL Arterial Blood Potassium (3.4-4.5) mmol/L Arterial Blood Glucose (75-99) mg/dL Crossmatch 06/17/24 06/17/24 06/17/24 Range/Units 03:08 03:08 04:14 WBC 16.2 H (3.8-10.6) k/uL RBC 3.35 L (4.30-5.90) m/uL Hgb 11.1 L (13.0-17.5) gm/dL Hct 30.8 L (39.0-53.0) % Plt Count (150-450) k/uL Neutrophils # 14.1 H (1.3-7.7) k/uL Lymphocytes # (1.0-4.8) k/uL ABG pH (7.35-7.45) ABG pCO2 (35-45) mmHg ABG pO2 (83-108) mmHg ABG Total CO2 (19-24) mmol/L ABG O2 Saturation (94-97) % ABG Hematocrit (34.0-46.0) % ABG Potassium (3.4-4.5) mmol/L ABG Ionized Calcium (4.5-5.3) mg/dL ABG Glucose (75-99) mg/dL ABG Lactic Acid (0.5-1.6) mmol/L Hemoglobin (13.0-17.5) gm/dL Creatinine 0.62 L (0.66-1.25) mg/dL Glucose 109 H (74-99) mg/dL POC Glucose (mg/dL) 111 H (70-110) mg/dL Magnesium (1.6-2.3) mg/dL Total Bilirubin 1.8 H (0.2-1.3) mg/dL Total Protein 5.3 L (6.3-8.2) g/dL Albumin (3.5-5.0) g/dL Arterial Blood Potassium (3.4-4.5) mmol/L Arterial Blood Glucose (75-99) mg/dL Crossmatch 06/17/24 06/17/24 06/17/24 Range/Units 04:58 06:06 06:53 WBC (3.8-10.6) k/uL RBC (4.30-5.90) m/uL Hgb (13.0-17.5) gm/dL Hct (39.0-53.0) % Plt Count (150-450) k/uL Neutrophils # (1.3-7.7) k/uL Lymphocytes # (1.0-4.8) k/uL ABG pH (7.35-7.45) ABG pCO2 (35-45) mmHg ABG pO2 (83-108) mmHg ABG Total CO2 (19-24) mmol/L ABG O2 Saturation (94-97) % ABG Hematocrit (34.0-46.0) % ABG Potassium (3.4-4.5) mmol/L ABG Ionized Calcium (4.5-5.3) mg/dL ABG Glucose (75-99) mg/dL ABG Lactic Acid (0.5-1.6) mmol/L Hemoglobin (13.0-17.5) gm/dL Creatinine (0.66-1.25) mg/dL Glucose (74-99) mg/dL POC Glucose (mg/dL) 121 H 129 H 126 H (70-110) mg/dL Magnesium (1.6-2.3) mg/dL Total Bilirubin (0.2-1.3) mg/dL Total Protein (6.3-8.2) g/dL Albumin (3.5-5.0) g/dL Arterial Blood Potassium (3.4-4.5) mmol/L Arterial Blood Glucose (75-99) mg/dL Crossmatch 06/17/24 Range/Units 08:59 WBC (3.8-10.6) k/uL RBC (4.30-5.90) m/uL Hgb (13.0-17.5) gm/dL Hct (39.0-53.0) % Plt Count (150-450) k/uL Neutrophils # (1.3-7.7) k/uL Lymphocytes # (1.0-4.8) k/uL ABG pH (7.35-7.45) ABG pCO2 (35-45) mmHg ABG pO2 (83-108) mmHg ABG Total CO2 (19-24) mmol/L ABG O2 Saturation (94-97) % ABG Hematocrit (34.0-46.0) % ABG Potassium (3.4-4.5) mmol/L ABG Ionized Calcium (4.5-5.3) mg/dL ABG Glucose (75-99) mg/dL ABG Lactic Acid (0.5-1.6) mmol/L Hemoglobin (13.0-17.5) gm/dL Creatinine (0.66-1.25) mg/dL Glucose (74-99) mg/dL POC Glucose (mg/dL) 114 H (70-110) mg/dL Magnesium (1.6-2.3) mg/dL Total Bilirubin (0.2-1.3) mg/dL Total Protein (6.3-8.2) g/dL Albumin (3.5-5.0) g/dL Arterial Blood Potassium (3.4-4.5) mmol/L Arterial Blood Glucose (75-99) mg/dL Crossmatch - Imaging and Cardiology Chest x-ray: report reviewed, image reviewed Assessment and Plan Assessment: Coronary artery disease, status post total arterial double coronary artery bypass grafting surgery with the left in situ ntramammary artery to the left anterior descending artery, the left radial artery from the aorta to the third obtuse marginal artery Preserved left ventricular function Postoperative acute blood loss anemia, expected given hemodilution and cardiopulmonary bypass History of hypertension Dyslipidemia, triglycerides 287, LDL 153 Chronic ongoing tobacco dependence, quit smoking on May 26, 2024 Chronic on going EtOH abuse, quit drinking May 26, 2024 Plan: Continue to maximize medical therapy with aspirin, statin, Plavix, and beta- frank therapy. Will increase beta-frank therapy as tolerated. Discontinue nitroglycerin drip. Continue amiodarone 400 mg p.o. twice daily for atrial fibrillation prophylaxis, no atrial fibrillation reported, currently in normal sinus rhythm. Wean oxygen as tolerated. Bronchodilators recommendations per Dr. Tovar's recommendations. Will monitor daily labs and chest x-rays, electrolyte replacement per protocol. Albumin 25% 50 mL IV piggyback x 1 now. Start Norvasc for radial artery spasm prophylaxis when blood pressure is able to tolerate. GI/DVT prophylaxis Increase activity as tolerated, PT/OT/cardiac rehab consulted. Insulin management per internal medicine, patient is prediabetic with hemoglobin A1c 5.6%, needs to remain on IV insulin for 48 hours then may transition to subcutaneous per protocol. Pain control per current medication regimen. Toradol added for additional pain control. Continue right IJ Cordis for another 24 hours. Continue chest tubes for another 24 hours, monitor output. Continue Martinez catheter for another 24 hours, continue to monitor and record strict accurate intake and output. Encourage use of incentive spirometry 10 times every hour while awake. More recommendations to follow based on patient's clinical course
[2024-06-17] MEDS ORDERED: LORazepam 0.5 MG TAB PO PRN (09:59)
[2024-06-17] MEDS ORDERED: LORazepam 1 MG TAB PO PRN ×4 (09:59)
[2024-06-17] MEDS ORDERED: LORazepam 2 MG/ML INJ IV PRN (09:59)
[2024-06-17] MEDS: METOPROLOL TARTRATE 12.5 MG TAB PO SCH (10:11)
[2024-06-17 10:20] LABS: Glucose,Whole Blood 115 mg/dL (70-110)
--- NOTE | 2024-06-17 11:15 | P.PN ---
Subjective Progress Note Date: 06/17/24 This is a 49-year-old male patient with a known history of chronic and ongoing tobacco dependence, chronic daily alcohol use including 1 pint daily, marijuana use hyperlipidemia who had undergone cardiac catheterization in March 2024 for ongoing chest pain. He was found to have a calcified left anterior descending artery, chronic total occlusion and collaterals from the right coronary system, chronically occluded third obtuse marginal branch as well as critical stenosis in the first obtuse marginal coronary artery and mild disease in the right coronary artery. He was recommended surgical revascularization. He was brought in today electively for the surgery. A double coronary artery bypass grafting utilizing the TEJADA to the LAD and the left radial artery from the aorta to the third obtuse marginal artery. Exclusion of left atrial appendage. He is today postoperatively in the intensive care unit. He is currently intubated on the mechanical ventilator and assist-control mode at a rate of 14, tidal volume 450, FiO2 100% and a PEEP of 10. Follow-up blood gases revealed a PaO2 of 405. pCO2 of 47 and a pH of 7.33. FiO2 was decreased to 60%. Cardiac output 5.2. Cardiac index 2.6. CVP 17. The [place]par[place] catheter was inadvertently removed as it was coiled in the right ventricle. He is continued on propofol at 40 mcg/kg/min. Nitroglycerin at 5 mg/min. Insulin drip at 0.5 units/h. Normal saline at 40 mL/h. He has a mediastinal and left pleural chest tubes in place. Pacer wires in place. Favian wrap to the right upper forearm. Favian wraps to the bilateral lower extremities. Chest x-ray reveals endotracheal and nasogastric tubes in place. Left thoracotomy in place without evidence of pneumothorax. Chest tube in the mediastinum. White count 17.4. Hemoglobin 11.8. Platelets 146. INR 1.1. Sodium 137. Potassium 4.0. Bicarb 24. BUN 9. Creatinine 0.64. Glucose 124. Magnesium 2.5. He has been initiated on DuoNeb inhalations. Heparin for DVT prophylaxis The patient was seen today June 17, 2024 in follow-up in the intensive care unit. He is awake and alert in no acute distress. Sitting up in a chair at the bedside. Maintaining O2 saturations in the 90s on 2 L/min per nasal cannula. Postoperative day #1. Left pleural and mediastinal chest tubes remain in place. Chest x-ray reveals persistent cardiomegaly with slight worsening central vascular congestion and developing left basilar infiltrate and/or atelectasis. He is encouraged regarding the increased use of the incentive spirometer. White count 16.2. Hemoglobin 11.1. Platelets 156. Sodium 137. Potassium 3.6. Bicarb 23. BUN 9. Creatinine 0.62. Glucose 109. AST 42. ALT 16. He remains on bronchodilators. Heparin for DVT prophylaxis. Currently on amiodarone and Lopressor. Insulin drip at 2 units/h. Normal saline at 50 mL/h. Objective - Vital Signs Vital signs: Vital Signs Temp 98.1 F 06/17/24 08:45 Pulse 82 06/17/24 10:53 Resp 19 06/17/24 10:15 BP 111/67 06/17/24 10:15 Pulse Ox 100 06/17/24 10:15 FiO2 40 06/16/24 16:45 Intake & Output 06/16/24 06/17/24 06/17/24 18:59 06:59 18:59 Intake Total 776.731 7114.610 204.775 Output Total 1695 853 245 Balance -810.964 732.610 -40.225 Weight 92.5 kg Intake: IV 853 1516 198 ACETAMINOPHEN IV (For NPO 100 ) 1,000 mg In Empty Bag 1 bag @ 400 mls/hr IVPB Q6HR [facility] Rx#:[id number] Albumin Human 5% 250 ml 500 750 In Empty Bag 1 bag @ 250 mls/hr IVPB Q1HR PRN Rx#: [id number] [place] and CVP 66 18 Sodium Chloride 0.9% 1, 300 550 130 000 ml @ 20 mls/hr IV . Q24H [facility] Rx#:[id number] ceFAZolin 2 gm In Sodium 50 50 Chloride 0.9% 50 ml @ 100 mls/hr IVPB Q8HR [facility] Rx# :[id number] Intake, IV Titration 31.036 69.610 6.775 Amount Dexmedetomidine/0.9% NaCl 25.346 16.038 (Pmx) 400 mcg In Empty Bag 1 bag @ Titrate IV . Q0M [facility] Rx#:[id number] Insulin Regular 100 unit 5.690 25.974 6.775 In Sodium Chloride 0.9% 100 ml @ Per Protocol IV .Q0M [facility] Rx#:[id number] propofoL 1,000 mg In 27.598 Empty Bag 1 bag @ Titrate IV .Q0M [facility] Rx#: [id number] Output: Chest Tube Drainage 400 318 110 Left Pleural 130 68 60 Right Pleural/Mediastinal 270 250 50 Drainage 20 Left Forearm WILDER 20 Urine 775 535 135 Estimated Blood Loss 500 Other: Voiding Method Indwelling Catheter Indwelling Catheter ABP, PAP, CO, CI - Last Documented Arterial Blood Pressure 119/58 Pulmonary Artery Pressure 28/20 Cardiac Output 5.2 Cardiac Index 2.6 - Exam GENERAL EXAM: Awake, alert 49-year-old male, up in a chair, on 2 L nasal cannula, fairly comfortable in no apparent distress. HEAD: Normocephalic. EYES: Normal reaction of pupils, equal size. NOSE: Clear with pink turbinates. THROAT: No erythema or exudates. NECK: No masses, no JVD. CHEST: Sternal dressing dry and intact. Mediastinal and left chest tubes in p lace. Pacer wires in place. LUNGS: Equal air entry with no crackles, wheeze, rhonchi or dullness. CVS: S1 and S2 normal with no audible murmur, regular rhythm. ABDOMEN: No hepatosplenomegaly, no guarding or rigidity. SPINE: No scoliosis or deformity SKIN: No rashes CENTRAL NERVOUS SYSTEM: Sedated, tone is normal in all 4 extremities. EXTREMITIES: Left upper extremity with a WILDER drain, Favian wrap in place. Bilateral lower extremity Favian wraps in place. Peripheral pulses are intact. - Labs CBC & Chem 7: 06/17/24 03:08 06/17/24 03:08 Labs: Abnormal Lab Results - Last 24 Hours (Table) 06/10/24 06/16/24 06/16/24 Range/Units 13:09 08:32 10:07 WBC (3.8-10.6) k/uL RBC (4.30-5.90) m/uL Hgb (13.0-17.5) gm/dL Hct (39.0-53.0) % Plt Count (150-450) k/uL Neutrophils # (1.3-7.7) k/uL Lymphocytes # (1.0-4.8) k/uL ABG pH (7.35-7.45) ABG pCO2 (35-45) mmHg ABG pO2 125 H 208 H (83-108) mmHg ABG Total CO2 (19-24) mmol/L ABG O2 Saturation 98.7 H 99.3 H (94-97) % ABG Hematocrit (34.0-46.0) % ABG Potassium 3.3 L (3.4-4.5) mmol/L ABG Ionized Calcium (4.5-5.3) mg/dL ABG Glucose 123 H 152 H (75-99) mg/dL ABG Lactic Acid (0.5-1.6) mmol/L Hemoglobin 11.2 L (13.0-17.5) gm/dL Creatinine (0.66-1.25) mg/dL Glucose (74-99) mg/dL POC Glucose (mg/dL) (70-110) mg/dL Magnesium (1.6-2.3) mg/dL Total Bilirubin (0.2-1.3) mg/dL Total Protein (6.3-8.2) g/dL Albumin (3.5-5.0) g/dL Arterial Blood Potassium 3.3 L (3.4-4.5) mmol/L Arterial Blood Glucose 123 H 152 H (75-99) mg/dL Crossmatch See Detail 06/16/24 06/16/24 06/16/24 Range/Units 11:04 11:30 11:55 WBC (3.8-10.6) k/uL RBC (4.30-5.90) m/uL Hgb (13.0-17.5) gm/dL Hct (39.0-53.0) % Plt Count (150-450) k/uL Neutrophils # (1.3-7.7) k/uL Lymphocytes # (1.0-4.8) k/uL ABG pH (7.35-7.45) ABG pCO2 (35-45) mmHg ABG pO2 >420 H 420 H 355 H (83-108) mmHg ABG Total CO2 (19-24) mmol/L ABG O2 Saturation >99.4 H >99.4 H >99.4 H (94-97) % ABG Hematocrit 26 L 28 L 28 L (34.0-46.0) % ABG Potassium 3.3 L (3.4-4.5) mmol/L ABG Ionized Calcium 3.9 L 4.0 L 4.2 L (4.5-5.3) mg/dL ABG Glucose 123 H 153 H 164 H (75-99) mg/dL ABG Lactic Acid 2.1 H 2.2 H* (0.5-1.6) mmol/L Hemoglobin 8.6 L 9.0 L 9.3 L (13.0-17.5) gm/dL Creatinine (0.66-1.25) mg/dL Glucose (74-99) mg/dL POC Glucose (mg/dL) (70-110) mg/dL Magnesium (1.6-2.3) mg/dL Total Bilirubin (0.2-1.3) mg/dL Total Protein (6.3-8.2) g/dL Albumin (3.5-5.0) g/dL Arterial Blood Potassium 3.3 L (3.4-4.5) mmol/L Arterial Blood Glucose 123 H 153 H 164 H (75-99) mg/dL Crossmatch 06/16/24 06/16/24 06/16/24 Range/Units 13:05 13:25 13:48 WBC (3.8-10.6) k/uL RBC (4.30-5.90) m/uL Hgb (13.0-17.5) gm/dL Hct (39.0-53.0) % Plt Count (150-450) k/uL Neutrophils # (1.3-7.7) k/uL Lymphocytes # (1.0-4.8) k/uL ABG pH (7.35-7.45) ABG pCO2 (35-45) mmHg ABG pO2 64 L 381 H (83-108) mmHg ABG Total CO2 (19-24) mmol/L ABG O2 Saturation 93.9 L >99.4 H (94-97) % ABG Hematocrit 32 L 33 L (34.0-46.0) % ABG Potassium (3.4-4.5) mmol/L ABG Ionized Calcium (4.5-5.3) mg/dL ABG Glucose 148 H 131 H (75-99) mg/dL ABG Lactic Acid 3.0 H* 2.9 H* (0.5-1.6) mmol/L Hemoglobin 10.4 L 10.7 L (13.0-17.5) gm/dL Creatinine (0.66-1.25) mg/dL Glucose (74-99) mg/dL POC Glucose (mg/dL) 124 H (70-110) mg/dL Magnesium (1.6-2.3) mg/dL Total Bilirubin (0.2-1.3) mg/dL Total Protein (6.3-8.2) g/dL Albumin (3.5-5.0) g/dL Arterial Blood Potassium (3.4-4.5) mmol/L Arterial Blood Glucose 148 H 131 H (75-99) mg/dL Crossmatch 06/16/24 06/16/24 06/16/24 Range/Units 13:50 13:50 14:17 WBC 17.4 H (3.8-10.6) k/uL RBC 3.49 L (4.30-5.90) m/uL Hgb 11.8 L (13.0-17.5) gm/dL Hct 32.3 L (39.0-53.0) % Plt Count 146 L (150-450) k/uL Neutrophils # 14.7 H (1.3-7.7) k/uL Lymphocytes # (1.0-4.8) k/uL ABG pH 7.33 L (7.35-7.45) ABG pCO2 47 H (35-45) mmHg ABG pO2 405 H (83-108) mmHg ABG Total CO2 27 H (19-24) mmol/L ABG O2 Saturation >100.0 H (94-97) % ABG Hematocrit (34.0-46.0) % ABG Potassium (3.4-4.5) mmol/L ABG Ionized Calcium (4.5-5.3) mg/dL ABG Glucose (75-99) mg/dL ABG Lactic Acid (0.5-1.6) mmol/L Hemoglobin 12.0 L (13.0-17.5) gm/dL Creatinine 0.64 L (0.66-1.25) mg/dL Glucose 117 H (74-99) mg/dL POC Glucose (mg/dL) (70-110) mg/dL Magnesium 2.5 H (1.6-2.3) mg/dL Total Bilirubin (0.2-1.3) mg/dL Total Protein 4.8 L (6.3-8.2) g/dL Albumin 3.0 L (3.5-5.0) g/dL Arterial Blood Potassium (3.4-4.5) mmol/L Arterial Blood Glucose (75-99) mg/dL Crossmatch 06/16/24 06/16/24 06/16/24 Range/Units 15:06 16:32 16:40 WBC 15.2 H (3.8-10.6) k/uL RBC 3.43 L (4.30-5.90) m/uL Hgb 11.6 L (13.0-17.5) gm/dL Hct 32.0 L (39.0-53.0) % Plt Count (150-450) k/uL Neutrophils # 12.9 H (1.3-7.7) k/uL Lymphocytes # (1.0-4.8) k/uL ABG pH (7.35-7.45) ABG pCO2 (35-45) mmHg ABG pO2 (83-108) mmHg ABG Total CO2 (19-24) mmol/L ABG O2 Saturation (94-97) % ABG Hematocrit (34.0-46.0) % ABG Potassium (3.4-4.5) mmol/L ABG Ionized Calcium (4.5-5.3) mg/dL ABG Glucose (75-99) mg/dL ABG Lactic Acid (0.5-1.6) mmol/L Hemoglobin (13.0-17.5) gm/dL Creatinine (0.66-1.25) mg/dL Glucose (74-99) mg/dL POC Glucose (mg/dL) 132 H 159 H (70-110) mg/dL Magnesium (1.6-2.3) mg/dL Total Bilirubin (0.2-1.3) mg/dL Total Protein (6.3-8.2) g/dL Albumin (3.5-5.0) g/dL Arterial Blood Potassium (3.4-4.5) mmol/L Arterial Blood Glucose (75-99) mg/dL Crossmatch 06/16/24 06/16/24 06/16/24 Range/Units 17:12 17:15 18:07 WBC (3.8-10.6) k/uL RBC (4.30-5.90) m/uL Hgb (13.0-17.5) gm/dL Hct (39.0-53.0) % Plt Count (150-450) k/uL Neutrophils # (1.3-7.7) k/uL Lymphocytes # (1.0-4.8) k/uL ABG pH (7.35-7.45) ABG pCO2 (35-45) mmHg ABG pO2 114 H (83-108) mmHg ABG Total CO2 25 H (19-24) mmol/L ABG O2 Saturation 99.1 H (94-97) % ABG Hematocrit (34.0-46.0) % ABG Potassium (3.4-4.5) mmol/L ABG Ionized Calcium (4.5-5.3) mg/dL ABG Glucose (75-99) mg/dL ABG Lactic Acid (0.5-1.6) mmol/L Hemoglobin 11.5 L (13.0-17.5) gm/dL Creatinine (0.66-1.25) mg/dL Glucose (74-99) mg/dL POC Glucose (mg/dL) 169 H 154 H (70-110) mg/dL Magnesium (1.6-2.3) mg/dL Total Bilirubin (0.2-1.3) mg/dL Total Protein (6.3-8.2) g/dL Albumin (3.5-5.0) g/dL Arterial Blood Potassium (3.4-4.5) mmol/L Arterial Blood Glucose (75-99) mg/dL Crossmatch 06/16/24 06/16/24 06/16/24 Range/Units 19:01 19:43 19:56 WBC 14.3 H (3.8-10.6) k/uL RBC 3.56 L (4.30-5.90) m/uL Hgb 11.8 L (13.0-17.5) gm/dL Hct 33.1 L (39.0-53.0) % Plt Count (150-450) k/uL Neutrophils # 13.1 H (1.3-7.7) k/uL Lymphocytes # 0.5 L (1.0-4.8) k/uL ABG pH (7.35-7.45) ABG pCO2 (35-45) mmHg ABG pO2 (83-108) mmHg ABG Total CO2 (19-24) mmol/L ABG O2 Saturation (94-97) % ABG Hematocrit (34.0-46.0) % ABG Potassium (3.4-4.5) mmol/L ABG Ionized Calcium (4.5-5.3) mg/dL ABG Glucose (75-99) mg/dL ABG Lactic Acid (0.5-1.6) mmol/L Hemoglobin (13.0-17.5) gm/dL Creatinine (0.66-1.25) mg/dL Glucose (74-99) mg/dL POC Glucose (mg/dL) 139 H 152 H (70-110) mg/dL Magnesium (1.6-2.3) mg/dL Total Bilirubin (0.2-1.3) mg/dL Total Protein (6.3-8.2) g/dL Albumin (3.5-5.0) g/dL Arterial Blood Potassium (3.4-4.5) mmol/L Arterial Blood Glucose (75-99) mg/dL Crossmatch 06/16/24 06/16/24 06/16/24 Range/Units 21:01 22:06 22:56 WBC (3.8-10.6) k/uL RBC (4.30-5.90) m/uL Hgb (13.0-17.5) gm/dL Hct (39.0-53.0) % Plt Count (150-450) k/uL Neutrophils # (1.3-7.7) k/uL Lymphocytes # (1.0-4.8) k/uL ABG pH (7.35-7.45) ABG pCO2 (35-45) mmHg ABG pO2 (83-108) mmHg ABG Total CO2 (19-24) mmol/L ABG O2 Saturation (94-97) % ABG Hematocrit (34.0-46.0) % ABG Potassium (3.4-4.5) mmol/L ABG Ionized Calcium (4.5-5.3) mg/dL ABG Glucose (75-99) mg/dL ABG Lactic Acid (0.5-1.6) mmol/L Hemoglobin (13.0-17.5) gm/dL Creatinine (0.66-1.25) mg/dL Glucose (74-99) mg/dL POC Glucose (mg/dL) 144 H 136 H 130 H (70-110) mg/dL Magnesium (1.6-2.3) mg/dL Total Bilirubin (0.2-1.3) mg/dL Total Protein (6.3-8.2) g/dL Albumin (3.5-5.0) g/dL Arterial Blood Potassium (3.4-4.5) mmol/L Arterial Blood Glucose (75-99) mg/dL Crossmatch 06/17/24 06/17/24 06/17/24 Range/Units 00:08 02:06 03:02 WBC (3.8-10.6) k/uL RBC (4.30-5.90) m/uL Hgb (13.0-17.5) gm/dL Hct (39.0-53.0) % Plt Count (150-450) k/uL Neutrophils # (1.3-7.7) k/uL Lymphocytes # (1.0-4.8) k/uL ABG pH (7.35-7.45) ABG pCO2 (35-45) mmHg ABG pO2 (83-108) mmHg ABG Total CO2 (19-24) mmol/L ABG O2 Saturation (94-97) % ABG Hematocrit (34.0-46.0) % ABG Potassium (3.4-4.5) mmol/L ABG Ionized Calcium (4.5-5.3) mg/dL ABG Glucose (75-99) mg/dL ABG Lactic Acid (0.5-1.6) mmol/L Hemoglobin (13.0-17.5) gm/dL Creatinine (0.66-1.25) mg/dL Glucose (74-99) mg/dL POC Glucose (mg/dL) 118 H 126 H 117 H (70-110) mg/dL Magnesium (1.6-2.3) mg/dL Total Bilirubin (0.2-1.3) mg/dL Total Protein (6.3-8.2) g/dL Albumin (3.5-5.0) g/dL Arterial Blood Potassium (3.4-4.5) mmol/L Arterial Blood Glucose (75-99) mg/dL Crossmatch 06/17/24 06/17/24 06/17/24 Range/Units 03:08 03:08 04:14 WBC 16.2 H (3.8-10.6) k/uL RBC 3.35 L (4.30-5.90) m/uL Hgb 11.1 L (13.0-17.5) gm/dL Hct 30.8 L (39.0-53.0) % Plt Count (150-450) k/uL Neutrophils # 14.1 H (1.3-7.7) k/uL Lymphocytes # (1.0-4.8) k/uL ABG pH (7.35-7.45) ABG pCO2 (35-45) mmHg ABG pO2 (83-108) mmHg ABG Total CO2 (19-24) mmol/L ABG O2 Saturation (94-97) % ABG Hematocrit (34.0-46.0) % ABG Potassium (3.4-4.5) mmol/L ABG Ionized Calcium (4.5-5.3) mg/dL ABG Glucose (75-99) mg/dL ABG Lactic Acid (0.5-1.6) mmol/L Hemoglobin (13.0-17.5) gm/dL Creatinine 0.62 L (0.66-1.25) mg/dL Glucose 109 H (74-99) mg/dL POC Glucose (mg/dL) 111 H (70-110) mg/dL Magnesium (1.6-2.3) mg/dL Total Bilirubin 1.8 H (0.2-1.3) mg/dL Total Protein 5.3 L (6.3-8.2) g/dL Albumin (3.5-5.0) g/dL Arterial Blood Potassium (3.4-4.5) mmol/L Arterial Blood Glucose (75-99) mg/dL Crossmatch 06/17/24 06/17/24 06/17/24 Range/Units 04:58 06:06 06:53 WBC (3.8-10.6) k/uL RBC (4.30-5.90) m/uL Hgb (13.0-17.5) gm/dL Hct (39.0-53.0) % Plt Count (150-450) k/uL Neutrophils # (1.3-7.7) k/uL Lymphocytes # (1.0-4.8) k/uL ABG pH (7.35-7.45) ABG pCO2 (35-45) mmHg ABG pO2 (83-108) mmHg ABG Total CO2 (19-24) mmol/L ABG O2 Saturation (94-97) % ABG Hematocrit (34.0-46.0) % ABG Potassium (3.4-4.5) mmol/L ABG Ionized Calcium (4.5-5.3) mg/dL ABG Glucose (75-99) mg/dL ABG Lactic Acid (0.5-1.6) mmol/L Hemoglobin (13.0-17.5) gm/dL Creatinine (0.66-1.25) mg/dL Glucose (74-99) mg/dL POC Glucose (mg/dL) 121 H 129 H 126 H (70-110) mg/dL Magnesium (1.6-2.3) mg/dL Total Bilirubin (0.2-1.3) mg/dL Total Protein (6.3-8.2) g/dL Albumin (3.5-5.0) g/dL Arterial Blood Potassium (3.4-4.5) mmol/L Arterial Blood Glucose (75-99) mg/dL Crossmatch 06/17/24 06/17/24 Range/Units 08:59 10:18 WBC (3.8-10.6) k/uL RBC (4.30-5.90) m/uL Hgb (13.0-17.5) gm/dL Hct (39.0-53.0) % Plt Count (150-450) k/uL Neutrophils # (1.3-7.7) k/uL Lymphocytes # (1.0-4.8) k/uL ABG pH (7.35-7.45) ABG pCO2 (35-45) mmHg ABG pO2 (83-108) mmHg ABG Total CO2 (19-24) mmol/L ABG O2 Saturation (94-97) % ABG Hematocrit (34.0-46.0) % ABG Potassium (3.4-4.5) mmol/L ABG Ionized Calcium (4.5-5.3) mg/dL ABG Glucose (75-99) mg/dL ABG Lactic Acid (0.5-1.6) mmol/L Hemoglobin (13.0-17.5) gm/dL Creatinine (0.66-1.25) mg/dL Glucose (74-99) mg/dL POC Glucose (mg/dL) 114 H 115 H (70-110) mg/dL Magnesium (1.6-2.3) mg/dL Total Bilirubin (0.2-1.3) mg/dL Total Protein (6.3-8.2) g/dL Albumin (3.5-5.0) g/dL Arterial Blood Potassium (3.4-4.5) mmol/L Arterial Blood Glucose (75-99) mg/dL Crossmatch Assessment and Plan Assessment: Coronary artery disease s/p coronary artery bypass grafting utilizing a TEJADA to the LAD, left radial artery from the aorta to the third obtuse marginal artery. Exclusion of left atrial appendage. Postoperative day #1 Mechanical ventilation management, expected outcome of surgery. Recovered and on 2 L nasal cannula Chronic and ongoing tobacco dependence Chronic daily alcohol use 1 pint daily Chronic daily marijuana use Hyperlipidemia Hypertension Family history of premature coronary artery disease Plan: The patient was seen and evaluated Chest x-ray, labs and medications reviewed Currently stable and on 2 L nasal cannula Continue bronchodilators every 4 hours Encouraged the increased use of the incentive spirometer Heparin for DVT prophylaxis We will continue to follow I have personally seen and examined the patient, performed the documentation and the assessment and plan as written. Number of minutes spent on the visit: 10 Dictation was produced using [employer] dictation software. Please excuse any grammatical, word or spelling errors.
[2024-06-17 11:25] LABS: Glucose,Whole Blood 116 mg/dL (70-110)
--- NOTE | 2024-06-17 11:54 | P.CONS ---
History of Present Illness - Reason for Consult Consult date: 06/17/24 - History of Present Illness Patient is a 49-year-old male with past medical history of tobacco use disorder, hyperlipidemia, with no use, marijuana use, CAD s/p heart cath March 2024- Calcified left anterior descending coronary artery with chronic total occlusion with collaterals from the right coronary system, chronically occluded right to's marginal as well as critical stenosis in the first acute marginal coronary artery, mild disease, positive family history of premature CAD, who presented for elective CABG that was performed on 06/16/2024, TEJADA to LAD bypass, left radial to OM 3 bypass, transferred to ICU IM Consulted for medical management. patient was extubated on 06/16, currently satting well on nasal cannula, no pressor support. Sitting in the recliner, complaining of postop pain, difficulties taking deep breath in. Pertinent positives and negatives as discussed in HPI, a complete review of systems was performed and all other systems are negative. Patient seen and examined at bedside. Vital signs reviewed General: nontoxic, no distress, appears at stated age Derm: warm, dry Head: atraumatic, normocephalic, symmetric Eyes: EOMI, no lid lag, anicteric sclera, pupils equal round reactive to light ENT: Nose and ears atraumatic Neck: No thyromegaly, supple Mouth: no lip lesion, mucus membranes moist Cardiovascular: S1S2 reg, no murmur, no edema, dressing dry, clean, manage MS normal and left chest tube in place Lungs: clear to auscultation bilateral, no rhonchi, no rales, no wheeze, no accessory muscle use Abdominal: soft, nontender to palpation, no guarding, no appreciable organomegaly Ext: no gross muscle atrophy, muscle strength muscle strength 5 out of 5 in all 4 extremities, no contractures Neuro: CN II-XII grossly intact Psych: Alert, oriented, appropriate affect Assessment/Plan: CAD s/p TEJADA to LAD bypass 06/16/2024 Acute postop blood loss anemia Hypertension Hyperlipidemia Tobacco use disorder, quit 05/26/24 Atenolol abuse, last drink 05/26/24 Family history of premature CAD -Cardiology, cardiothoracic surgery, neurology following -Extubated 06/16 -Continue insulin drip, history of DM, -Aspirin 325, atorvastatin 40 daily, Plavix 75 -Metoprolol 12.5 twice daily -Amiodarone 400 twice daily for A-fib prophylaxis -Protonix 40 daily -Monitor CBC, BMP, magnesium, -Continue thiamine and folic acid, last drink 05/26/24 -Patient was extubated 02/14 -PT OT, incentive spirometry -Martinez in place, chest tubes in place DVT prophylaxis: Heparin subcu Past Medical History Past Medical History: Coronary Artery Disease (CAD), Chest Pain / Angina, Hyperlipidemia, Hypertension Additional Past Medical History / Comment(s): chest pain radiating to left arm with numbness,SOB w/ activity,gout,hemorrhoids History of Any Multi-Drug Resistant Organisms: None Reported Past Surgical History: Heart Catheterization, Tonsillectomy Additional Past Surgical History / Comment(s): pierre ingrown toenails Past Anesthesia/Blood Transfusion Reactions: No Reported Reaction, Family History of Problems w/ Anesthesia Additional Past Anesthesia/Blood Transfusion Reaction / Comm: no hx blood transfusion. mom has trouble waking up with anesthesia Smoking Status: Former smoker - Past Family History Mother Family Medical History: Cancer, Diabetes Mellitus Additional Family Medical History / Comment(s): breast CA Father Family Medical History: Coronary Artery Disease (CAD), CVA/TIA, Diabetes Mellitus Additional Family Medical History / Comment(s): Premature coronary artery disease, CABG mid 60s,mult CVAs Medications and Allergies Home Medications Medication Instructions Recorded Confirmed Type Aspirin 81 mg PO DAILY 04/06/24 06/10/24 History Metoprolol Tartrate [Lopressor] 50 mg PO BID #0 04/08/24 06/10/24 Rx Nitroglycerin Sl Tabs [Nitrostat] 0.4 mg SUBLINGUAL Q5M PRN #25 tab 04/08/24 06/10/24 Rx Mupirocin [Mupirocin 2%] 1 applic NASAL BID #1 tub 04/09/24 06/10/24 Rx Atorvastatin [Lipitor] 40 mg PO DAILY #30 tablet 04/13/24 06/10/24 Rx Thiamine [Vitamin B-1] 100 mg PO DAILY #30 tablet 04/13/24 06/10/24 Rx Allergies Allergy/AdvReac Type Severity Reaction Status Date / Time isosorbide AdvReac severe Verified 06/10/24 15:19 bounding FREEMAN,sweats,fever,vomiting Physical Exam Vitals: Vital Signs Temp Pulse Resp BP Pulse Ox FiO2 01/23/25 07:15 89 19 95/62 98 06/17/24 07:00 84 17 96 06/17/24 06:45 84 14 98 06/17/24 06:30 81 13 97 06/17/24 06:15 82 20 102/67 97 06/17/24 06:00 86 20 99 06/17/24 05:45 82 16 95 06/17/24 05:30 74 21 98 06/17/24 05:15 79 15 102/61 96 06/17/24 05:00 79 11 L 99 06/17/24 04:45 84 12 95 06/17/24 04:30 83 10 L 87/63 97 06/17/24 04:15 87 20 96 06/17/24 04:00 98.3 F 94 20 95 06/17/24 03:45 84 13 06/17/24 03:30 90 16 95 06/17/24 03:15 81 11 L 119/72 93 L 06/17/24 03:00 82 13 96 06/17/24 02:45 83 13 96 06/17/24 02:30 86 16 95 06/17/24 02:15 85 8 L 96 06/17/24 02:00 87 11 L 95 06/17/24 01:45 86 14 96 06/17/24 01:30 89 12 95 06/17/24 01:15 90 20 92 L 06/17/24 01:00 92 18 95 06/17/24 00:45 90 17 96 06/17/24 00:30 97 30 H 96 06/17/24 00:15 89 18 95 06/17/24 00:00 98.4 F 88 18 96 06/16/24 23:45 87 17 96 06/16/24 23:30 88 18 96 06/16/24 23:15 87 15 95 06/16/24 23:01 87 17 94 L 06/16/24 23:00 88 15 96 06/16/24 22:45 87 14 94 L 06/16/24 22:30 87 13 95 06/16/24 22:15 89 14 90 L 06/16/24 22:00 95 22 96 06/16/24 21:45 95 22 96 06/16/24 21:30 92 24 96 06/16/24 21:15 92 19 97 06/16/24 21:00 92 14 95 06/16/24 20:45 94 14 97 06/16/24 20:39 92 06/16/24 20:32 87 06/16/24 20:30 89 18 97 06/16/24 20:15 84 14 97 06/16/24 20:00 98.2 F 87 14 96 06/16/24 19:45 89 13 93 L 06/16/24 19:30 90 15 94 L 06/16/24 19:15 87 10 L 92 L 06/16/24 19:00 91 23 96 06/16/24 18:45 92 20 100 06/16/24 18:30 86 24 100 06/16/24 18:15 84 26 H 100 06/16/24 18:00 87 25 H 98 06/16/24 17:45 84 23 100 06/16/24 17:30 86 18 99 06/16/24 17:15 86 19 98 06/16/24 17:00 93 23 99 06/16/24 16:45 94 27 H 97 40 06/16/24 16:30 89 18 99 06/16/24 16:15 84 16 98 06/16/24 16:00 98.1 F 87 15 99 40 06/16/24 15:45 90 14 99 06/16/24 15:31 40 06/16/24 15:30 90 14 100 06/16/24 15:28 88 06/16/24 15:20 88 06/16/24 15:15 84 20 100 06/16/24 15:08 40 06/16/24 15:00 82 14 100 06/16/24 14:45 77 22 100 06/16/24 14:30 82 16 100 06/16/24 14:22 40 06/16/24 14:15 71 16 100 06/16/24 14:00 69 16 100 06/16/24 13:57 100 06/16/24 13:47 18 99 06/16/24 13:45 100 Intake and Output 06/16/24 06/17/24 06/17/24 22:59 06:59 14:59 Intake Total 9412.977 6732.793 56 Output Total 779 629 87 Balance 221.853 736.793 -31 Intake: IV 918 1348 56 ACETAMINOPHEN IV (For NPO 100 ) 1,000 mg In Empty Bag 1 bag @ 400 mls/hr IVPB Q6HR [facility] Rx#:[id number] Albumin Human 5% 250 ml 500 750 In Empty Bag 1 bag @ 250 mls/hr IVPB Q1HR PRN Rx#: [id number] [place] and CVP 18 48 6 Sodium Chloride 0.9% 1, 400 400 50 000 ml @ 20 mls/hr IV . Q24H [facility] Rx#:[id number] ceFAZolin 2 gm In Sodium 50 Chloride 0.9% 50 ml @ 100 mls/hr IVPB Q8HR [facility] Rx# :[id number] Intake, IV Titration 82.853 17.793 Amount Dexmedetomidine/0.9% NaCl 41.384 (Pmx) 400 mcg In Empty Bag 1 bag @ Titrate IV . Q0M [facility] Rx#:[id number] Insulin Regular 100 unit 13.871 17.793 In Sodium Chloride 0.9% 100 ml @ Per Protocol IV .Q0M [facility] Rx#:[id number] propofoL 1,000 mg In 27.598 Empty Bag 1 bag @ Titrate IV .Q0M [facility] Rx#: [id number] Output: Chest Tube Drainage 284 224 42 Left Pleural 44 44 32 Right Pleural/Mediastinal 240 180 10 Drainage 20 Left Forearm WILDER 20 Urine 475 405 45 Other: Voiding Method Indwelling Catheter Indwelling Catheter Weight 92.5 kg ABP, PAP, CO, CI - Last 8 Hours Arterial Blood Pressure 111/54 Arterial Blood Pressure 93/52 Arterial Blood Pressure 93/51 Arterial Blood Pressure 99/50 Arterial Blood Pressure 88/52 Arterial Blood Pressure 78/63 Arterial Blood Pressure 95/54 Arterial Blood Pressure 97/51 Arterial Blood Pressure 98/50 Arterial Blood Pressure 91/56 Arterial Blood Pressure 103/52 Arterial Blood Pressure 93/52 Arterial Blood Pressure 95/51 Arterial Blood Pressure 83/53 Arterial Blood Pressure 111/58 Arterial Blood Pressure 93/57 Arterial Blood Pressure 103/50 Arterial Blood Pressure 109/54 Arterial Blood Pressure 116/59 Arterial Blood Pressure 84/54 Arterial Blood Pressure 89/80 Arterial Blood Pressure 102/52 Arterial Blood Pressure 104/55 Arterial Blood Pressure 81/49 Arterial Blood Pressure 92/52 Arterial Blood Pressure 99/51 Arterial Blood Pressure 102/59 Cardiac Output 5.2 Cardiac Output 5.2 Cardiac Output 5.2 Cardiac Index 2.6 Cardiac Index 2.6 Cardiac Index 2.6 Results CBC & Chem 7: 06/17/24 03:08 06/17/24 03:08 Labs: Abnormal Lab Results - Last 24 Hours (Table) 06/10/24 06/16/24 06/16/24 Range/Units 13:09 08:32 10:07 WBC (3.8-10.6) k/uL RBC (4.30-5.90) m/uL Hgb (13.0-17.5) gm/dL Hct (39.0-53.0) % Plt Count (150-450) k/uL Neutrophils # (1.3-7.7) k/uL Lymphocytes # (1.0-4.8) k/uL ABG pH (7.35-7.45) ABG pCO2 (35-45) mmHg ABG pO2 125 H 208 H (83-108) mmHg ABG Total CO2 (19-24) mmol/L ABG O2 Saturation 98.7 H 99.3 H (94-97) % ABG Hematocrit (34.0-46.0) % ABG Potassium 3.3 L (3.4-4.5) mmol/L ABG Ionized Calcium (4.5-5.3) mg/dL ABG Glucose 123 H 152 H (75-99) mg/dL ABG Lactic Acid (0.5-1.6) mmol/L Hemoglobin 11.2 L (13.0-17.5) gm/dL Creatinine (0.66-1.25) mg/dL Glucose (74-99) mg/dL POC Glucose (mg/dL) (70-110) mg/dL Magnesium (1.6-2.3) mg/dL Total Bilirubin (0.2-1.3) mg/dL Total Protein (6.3-8.2) g/dL Albumin (3.5-5.0) g/dL Arterial Blood Potassium 3.3 L (3.4-4.5) mmol/L Arterial Blood Glucose 123 H 152 H (75-99) mg/dL Crossmatch See Detail 06/16/24 06/16/24 06/16/24 Range/Units 11:04 11:30 11:55 WBC (3.8-10.6) k/uL RBC (4.30-5.90) m/uL Hgb (13.0-17.5) gm/dL Hct (39.0-53.0) % Plt Count (150-450) k/uL Neutrophils # (1.3-7.7) k/uL Lymphocytes # (1.0-4.8) k/uL ABG pH (7.35-7.45) ABG pCO2 (35-45) mmHg ABG pO2 >420 H 420 H 355 H (83-108) mmHg ABG Total CO2 (19-24) mmol/L ABG O2 Saturation >99.4 H >99.4 H >99.4 H (94-97) % ABG Hematocrit 26 L 28 L 28 L (34.0-46.0) % ABG Potassium 3.3 L (3.4-4.5) mmol/L ABG Ionized Calcium 3.9 L 4.0 L 4.2 L (4.5-5.3) mg/dL ABG Glucose 123 H 153 H 164 H (75-99) mg/dL ABG Lactic Acid 2.1 H 2.2 H* (0.5-1.6) mmol/L Hemoglobin 8.6 L 9.0 L 9.3 L (13.0-17.5) gm/dL Creatinine (0.66-1.25) mg/dL Glucose (74-99) mg/dL POC Glucose (mg/dL) (70-110) mg/dL Magnesium (1.6-2.3) mg/dL Total Bilirubin (0.2-1.3) mg/dL Total Protein (6.3-8.2) g/dL Albumin (3.5-5.0) g/dL Arterial Blood Potassium 3.3 L (3.4-4.5) mmol/L Arterial Blood Glucose 123 H 153 H 164 H (75-99) mg/dL Crossmatch 06/16/24 06/16/24 06/16/24 Range/Units 13:05 13:25 13:48 WBC (3.8-10.6) k/uL RBC (4.30-5.90) m/uL Hgb (13.0-17.5) gm/dL Hct (39.0-53.0) % Plt Count (150-450) k/uL Neutrophils # (1.3-7.7) k/uL Lymphocytes # (1.0-4.8) k/uL ABG pH (7.35-7.45) ABG pCO2 (35-45) mmHg ABG pO2 64 L 381 H (83-108) mmHg ABG Total CO2 (19-24) mmol/L ABG O2 Saturation 93.9 L >99.4 H (94-97) % ABG Hematocrit 32 L 33 L (34.0-46.0) % ABG Potassium (3.4-4.5) mmol/L ABG Ionized Calcium (4.5-5.3) mg/dL ABG Glucose 148 H 131 H (75-99) mg/dL ABG Lactic Acid 3.0 H* 2.9 H* (0.5-1.6) mmol/L Hemoglobin 10.4 L 10.7 L (13.0-17.5) gm/dL Creatinine (0.66-1.25) mg/dL Glucose (74-99) mg/dL POC Glucose (mg/dL) 124 H (70-110) mg/dL Magnesium (1.6-2.3) mg/dL Total Bilirubin (0.2-1.3) mg/dL Total Protein (6.3-8.2) g/dL Albumin (3.5-5.0) g/dL Arterial Blood Potassium (3.4-4.5) mmol/L Arterial Blood Glucose 148 H 131 H (75-99) mg/dL Crossmatch 06/16/24 06/16/24 06/16/24 Range/Units 13:50 13:50 14:17 WBC 17.4 H (3.8-10.6) k/uL RBC 3.49 L (4.30-5.90) m/uL Hgb 11.8 L (13.0-17.5) gm/dL Hct 32.3 L (39.0-53.0) % Plt Count 146 L (150-450) k/uL Neutrophils # 14.7 H (1.3-7.7) k/uL Lymphocytes # (1.0-4.8) k/uL ABG pH 7.33 L (7.35-7.45) ABG pCO2 47 H (35-45) mmHg ABG pO2 405 H (83-108) mmHg ABG Total CO2 27 H (19-24) mmol/L ABG O2 Saturation >100.0 H (94-97) % ABG Hematocrit (34.0-46.0) % ABG Potassium (3.4-4.5) mmol/L ABG Ionized Calcium (4.5-5.3) mg/dL ABG Glucose (75-99) mg/dL ABG Lactic Acid (0.5-1.6) mmol/L Hemoglobin 12.0 L (13.0-17.5) gm/dL Creatinine 0.64 L (0.66-1.25) mg/dL Glucose 117 H (74-99) mg/dL POC Glucose (mg/dL) (70-110) mg/dL Magnesium 2.5 H (1.6-2.3) mg/dL Total Bilirubin (0.2-1.3) mg/dL Total Protein 4.8 L (6.3-8.2) g/dL Albumin 3.0 L (3.5-5.0) g/dL Arterial Blood Potassium (3.4-4.5) mmol/L Arterial Blood Glucose (75-99) mg/dL Crossmatch 06/16/24 06/16/24 06/16/24 Range/Units 15:06 16:32 16:40 WBC 15.2 H (3.8-10.6) k/uL RBC 3.43 L (4.30-5.90) m/uL Hgb 11.6 L (13.0-17.5) gm/dL Hct 32.0 L (39.0-53.0) % Plt Count (150-450) k/uL Neutrophils # 12.9 H (1.3-7.7) k/uL Lymphocytes # (1.0-4.8) k/uL ABG pH (7.35-7.45) ABG pCO2 (35-45) mmHg ABG pO2 (83-108) mmHg ABG Total CO2 (19-24) mmol/L ABG O2 Saturation (94-97) % ABG Hematocrit (34.0-46.0) % ABG Potassium (3.4-4.5) mmol/L ABG Ionized Calcium (4.5-5.3) mg/dL ABG Glucose (75-99) mg/dL ABG Lactic Acid (0.5-1.6) mmol/L Hemoglobin (13.0-17.5) gm/dL Creatinine (0.66-1.25) mg/dL Glucose (74-99) mg/dL POC Glucose (mg/dL) 132 H 159 H (70-110) mg/dL Magnesium (1.6-2.3) mg/dL Total Bilirubin (0.2-1.3) mg/dL Total Protein (6.3-8.2) g/dL Albumin (3.5-5.0) g/dL Arterial Blood Potassium (3.4-4.5) mmol/L Arterial Blood Glucose (75-99) mg/dL Crossmatch 06/16/24 06/16/24 06/16/24 Range/Units 17:12 17:15 18:07 WBC (3.8-10.6) k/uL RBC (4.30-5.90) m/uL Hgb (13.0-17.5) gm/dL Hct (39.0-53.0) % Plt Count (150-450) k/uL Neutrophils # (1.3-7.7) k/uL Lymphocytes # (1.0-4.8) k/uL ABG pH (7.35-7.45) ABG pCO2 (35-45) mmHg ABG pO2 114 H (83-108) mmHg ABG Total CO2 25 H (19-24) mmol/L ABG O2 Saturation 99.1 H (94-97) % ABG Hematocrit (34.0-46.0) % ABG Potassium (3.4-4.5) mmol/L ABG Ionized Calcium (4.5-5.3) mg/dL ABG Glucose (75-99) mg/dL ABG Lactic Acid (0.5-1.6) mmol/L Hemoglobin 11.5 L (13.0-17.5) gm/dL Creatinine (0.66-1.25) mg/dL Glucose (74-99) mg/dL POC Glucose (mg/dL) 169 H 154 H (70-110) mg/dL Magnesium (1.6-2.3) mg/dL Total Bilirubin (0.2-1.3) mg/dL Total Protein (6.3-8.2) g/dL Albumin (3.5-5.0) g/dL Arterial Blood Potassium (3.4-4.5) mmol/L Arterial Blood Glucose (75-99) mg/dL Crossmatch 06/16/24 06/16/24 06/16/24 Range/Units 19:01 19:43 19:56 WBC 14.3 H (3.8-10.6) k/uL RBC 3.56 L (4.30-5.90) m/uL Hgb 11.8 L (13.0-17.5) gm/dL Hct 33.1 L (39.0-53.0) % Plt Count (150-450) k/uL Neutrophils # 13.1 H (1.3-7.7) k/uL Lymphocytes # 0.5 L (1.0-4.8) k/uL ABG pH (7.35-7.45) ABG pCO2 (35-45) mmHg ABG pO2 (83-108) mmHg ABG Total CO2 (19-24) mmol/L ABG O2 Saturation (94-97) % ABG Hematocrit (34.0-46.0) % ABG Potassium (3.4-4.5) mmol/L ABG Ionized Calcium (4.5-5.3) mg/dL ABG Glucose (75-99) mg/dL ABG Lactic Acid (0.5-1.6) mmol/L Hemoglobin (13.0-17.5) gm/dL Creatinine (0.66-1.25) mg/dL Glucose (74-99) mg/dL POC Glucose (mg/dL) 139 H 152 H (70-110) mg/dL Magnesium (1.6-2.3) mg/dL Total Bilirubin (0.2-1.3) mg/dL Total Protein (6.3-8.2) g/dL Albumin (3.5-5.0) g/dL Arterial Blood Potassium (3.4-4.5) mmol/L Arterial Blood Glucose (75-99) mg/dL Crossmatch 06/16/24 06/16/24 06/16/24 Range/Units 21:01 22:06 22:56 WBC (3.8-10.6) k/uL RBC (4.30-5.90) m/uL Hgb (13.0-17.5) gm/dL Hct (39.0-53.0) % Plt Count (150-450) k/uL Neutrophils # (1.3-7.7) k/uL Lymphocytes # (1.0-4.8) k/uL ABG pH (7.35-7.45) ABG pCO2 (35-45) mmHg ABG pO2 (83-108) mmHg ABG Total CO2 (19-24) mmol/L ABG O2 Saturation (94-97) % ABG Hematocrit (34.0-46.0) % ABG Potassium (3.4-4.5) mmol/L ABG Ionized Calcium (4.5-5.3) mg/dL ABG Glucose (75-99) mg/dL ABG Lactic Acid (0.5-1.6) mmol/L Hemoglobin (13.0-17.5) gm/dL Creatinine (0.66-1.25) mg/dL Glucose (74-99) mg/dL POC Glucose (mg/dL) 144 H 136 H 130 H (70-110) mg/dL Magnesium (1.6-2.3) mg/dL Total Bilirubin (0.2-1.3) mg/dL Total Protein (6.3-8.2) g/dL Albumin (3.5-5.0) g/dL Arterial Blood Potassium (3.4-4.5) mmol/L Arterial Blood Glucose (75-99) mg/dL Crossmatch 06/17/24 06/17/24 06/17/24 Range/Units 00:08 02:06 03:02 WBC (3.8-10.6) k/uL RBC (4.30-5.90) m/uL Hgb (13.0-17.5) gm/dL Hct (39.0-53.0) % Plt Count (150-450) k/uL Neutrophils # (1.3-7.7) k/uL Lymphocytes # (1.0-4.8) k/uL ABG pH (7.35-7.45) ABG pCO2 (35-45) mmHg ABG pO2 (83-108) mmHg ABG Total CO2 (19-24) mmol/L ABG O2 Saturation (94-97) % ABG Hematocrit (34.0-46.0) % ABG Potassium (3.4-4.5) mmol/L ABG Ionized Calcium (4.5-5.3) mg/dL ABG Glucose (75-99) mg/dL ABG Lactic Acid (0.5-1.6) mmol/L Hemoglobin (13.0-17.5) gm/dL Creatinine (0.66-1.25) mg/dL Glucose (74-99) mg/dL POC Glucose (mg/dL) 118 H 126 H 117 H (70-110) mg/dL Magnesium (1.6-2.3) mg/dL Total Bilirubin (0.2-1.3) mg/dL Total Protein (6.3-8.2) g/dL Albumin (3.5-5.0) g/dL Arterial Blood Potassium (3.4-4.5) mmol/L Arterial Blood Glucose (75-99) mg/dL Crossmatch 06/17/24 06/17/24 06/17/24 Range/Units 03:08 03:08 04:14 WBC 16.2 H (3.8-10.6) k/uL RBC 3.35 L (4.30-5.90) m/uL Hgb 11.1 L (13.0-17.5) gm/dL Hct 30.8 L (39.0-53.0) % Plt Count (150-450) k/uL Neutrophils # 14.1 H (1.3-7.7) k/uL Lymphocytes # (1.0-4.8) k/uL ABG pH (7.35-7.45) ABG pCO2 (35-45) mmHg ABG pO2 (83-108) mmHg ABG Total CO2 (19-24) mmol/L ABG O2 Saturation (94-97) % ABG Hematocrit (34.0-46.0) % ABG Potassium (3.4-4.5) mmol/L ABG Ionized Calcium (4.5-5.3) mg/dL ABG Glucose (75-99) mg/dL ABG Lactic Acid (0.5-1.6) mmol/L Hemoglobin (13.0-17.5) gm/dL Creatinine 0.62 L (0.66-1.25) mg/dL Glucose 109 H (74-99) mg/dL POC Glucose (mg/dL) 111 H (70-110) mg/dL Magnesium (1.6-2.3) mg/dL Total Bilirubin 1.8 H (0.2-1.3) mg/dL Total Protein 5.3 L (6.3-8.2) g/dL Albumin (3.5-5.0) g/dL Arterial Blood Potassium (3.4-4.5) mmol/L Arterial Blood Glucose (75-99) mg/dL Crossmatch 06/17/24 06/17/24 06/17/24 Range/Units 04:58 06:06 06:53 WBC (3.8-10.6) k/uL RBC (4.30-5.90) m/uL Hgb (13.0-17.5) gm/dL Hct (39.0-53.0) % Plt Count (150-450) k/uL Neutrophils # (1.3-7.7) k/uL Lymphocytes # (1.0-4.8) k/uL ABG pH (7.35-7.45) ABG pCO2 (35-45) mmHg ABG pO2 (83-108) mmHg ABG Total CO2 (19-24) mmol/L ABG O2 Saturation (94-97) % ABG Hematocrit (34.0-46.0) % ABG Potassium (3.4-4.5) mmol/L ABG Ionized Calcium (4.5-5.3) mg/dL ABG Glucose (75-99) mg/dL ABG Lactic Acid (0.5-1.6) mmol/L Hemoglobin (13.0-17.5) gm/dL Creatinine (0.66-1.25) mg/dL Glucose (74-99) mg/dL POC Glucose (mg/dL) 121 H 129 H 126 H (70-110) mg/dL Magnesium (1.6-2.3) mg/dL Total Bilirubin (0.2-1.3) mg/dL Total Protein (6.3-8.2) g/dL Albumin (3.5-5.0) g/dL Arterial Blood Potassium (3.4-4.5) mmol/L Arterial Blood Glucose (75-99) mg/dL Crossmatch
[2024-06-17] MEDS: MULTIVITAMINS, THERA 1 EACH TAB PO SCH (11:58)
[2024-06-17 12:26] VITALS: BMI 32.9
[2024-06-17 12:33] LABS: Glucose,Whole Blood 108 mg/dL (70-110)
[2024-06-17 14:18] LABS: Glucose,Whole Blood 137 mg/dL (70-110)
[2024-06-17 15:37] LABS: Glucose,Whole Blood 136 mg/dL (70-110)
[2024-06-17 17:27] LABS: Glucose,Whole Blood 116 mg/dL (70-110)
[2024-06-17 18:34] LABS: Glucose,Whole Blood 148 mg/dL (70-110)
[2024-06-17 20:10] LABS: Glucose,Whole Blood 145 mg/dL (70-110)
[2024-06-17] MEDS ORDERED: Potassium Replacement Protocol 1 EACH MISC MISCELLANE PRN (20:58)
[2024-06-17 21:16] LABS: Glucose,Whole Blood 134 mg/dL (70-110)
[2024-06-17 22:16] LABS: Glucose,Whole Blood 124 mg/dL (70-110)
[2024-06-18 00:05] LABS: Glucose,Whole Blood 114 mg/dL (70-110)
[2024-06-18 01:05] LABS: Glucose,Whole Blood 126 mg/dL (70-110)
[2024-06-18 03:09] LABS: Glucose,Whole Blood 123 mg/dL (70-110)
[2024-06-18 04:11] LABS: Glucose,Whole Blood 117 mg/dL (70-110)
[2024-06-18 04:20] LABS: Basophils % (A) 0 %; Eosinophils % (A) 0 %; HCT 27.7 % (39.0-53.0); Lymphocytes # (A) 1.7 k/uL (1.0-4.8); Lymphocytes % (A) 13 %; MCH 32.6 pg (25.0-35.0); MCHC 34.4 g/dL (31.0-37.0); MCV 94.7 fL (80.0-100.0); Mean Platelet Volume 10.2; Monocytes # (A) 0.7 k/uL (0-1.0); Monocytes % (A) 5 %; Neutrophils # (A) 10.6 k/uL (1.3-7.7); Neutrophils % (A) 80 %; Platelet Count 122 k/uL (150-450); RBC 2.92 m/uL (4.30-5.90); RDW 13.3 % (11.5-15.5); WBC 13.2 k/uL (3.8-10.6)
[2024-06-18 04:27] LABS: Ionized Calcium 4.8 mg/dL (4.5-5.3)
[2024-06-18 04:38] LABS: ALT 11 U/L (4-49); AST 32 U/L (17-59); African American GFR (CKD) >90 (>60 ml/min/1.73 sqM); Albumin 3.7 g/dL (3.5-5.0); Alkaline Phosphatase 36 U/L (38-126); Anion Gap 10 mmol/L; Blood Urea Nitrogen 8 mg/dL (9-20); Calcium 8.7 mg/dL (8.4-10.2); Carbon Dioxide 25 mmol/L (22-30); Chloride 100 mmol/L (98-107); Glucose 110 mg/dL (74-99); Non-African American GFR(CKD) >90 (>60 ml/min/1.73 sqM); Sodium 135 mmol/L (137-145); Total Bilirubin 2.1 mg/dL (0.2-1.3); Total Protein 5.6 g/dL (6.3-8.2)
[2024-06-18 04:48] LABS: HGB 9.5 gm/dL (13.0-17.5)
[2024-06-18 06:51] LABS: Glucose,Whole Blood 117 mg/dL (70-110)
[2024-06-18] MEDS: PANTOPRAZOLE 40 MG TABLET PO SCH (06:59)
--- NOTE | 2024-06-18 07:54 | XR ---
EXAMINATION TYPE: XR chest 1V portable DATE OF EXAM: 06/18/2024 CLINICAL HISTORY: Postoperative cardiac surgery. TECHNIQUE: Single AP portable frontal upright view of the chest is obtained. COMPARISON: Chest x-ray from one day earlier FINDINGS: Stable right internal jugular coronary sheath. There are persistent two mediastinal draina ge catheters and left-sided chest tube. No obvious left-sided pneumothorax. There are sternal wires a long with mediastinal clips and left atrial appendage clip redemonstrated. There is cardiomegaly with moderate central vascular congestion and left basilar opacity. Osseous str uctures are intact. IMPRESSION: Cardiomegaly with moderate central vascular congestion and left basilar infiltrate and/or atelectasis with small left pleural effusion. Findings more prominent from one day earlier. [facility], , 06/18/2024 7:52 AM
[2024-06-18 08:20] LABS: Glucose,Whole Blood 116 mg/dL (70-110)
[2024-06-18] MEDS: METOPROLOL TARTRATE 25 MG TAB PO SCH (08:28)
[2024-06-18] MEDS: FUROSEMIDE 10 MG/ML 2 ML VIAL IV ONE (08:28)
--- NOTE | 2024-06-18 08:28 | P.PN ---
Subjective Progress Note Date: 06/18/24 Principal diagnosis: Double vessel diffuse coronary artery disease with totally occluded left anterior descending artery, preserved left ventricular function. History of hyperlipidemia, hypertension, chronic tobacco dependance with cessation 05/26/24, EtOH abuse with cessation 05/26/24, daily marijuana use, and family history of premature coronary artery disease in his father POD #2 total arterial double coronary artery bypass grafting using the in situ left intramammary artery to the left anterior descending artery, the left radial artery from the aorta to the third obtuse marginal artery, exclusion of the left atrial appendage using a 35mm AtriClip, endoscopic harvesting of the left radial artery, intraoperative Graft flow measurements using the [employer] Virtusstim system, intraoperative transesophageal echocardiogram and epiaortic scanning Postoperative acute blood loss anemia, expected given hemodilution and cardiopulmonary bypass pump The patient was seen and examined this morning sitting up in recliner in the intensive care unit in no acute distress. Remains in sinus rhythm to sinus tach, hemodynamically stable on no inotropes or pressors. States pain is mostly controlled on current medication regimen, denies shortness of breath. He has been ambulatory in the hallway with standby assist. Chest x-ray, lab work reviewed. Right internal jugular cordis, right radial arterial line, mediastinal/left pleural chest tubes all remain. No signs of alcohol withdrawal . Discussed with Dr. Pleitez. No other new concerns. Objective - Vital Signs Vital signs: Vital Signs Temp 99.9 F H 06/18/24 04:00 Pulse 94 06/18/24 07:00 Resp 24 06/18/24 07:00 BP 129/82 06/18/24 07:00 Pulse Ox 96 06/18/24 07:00 FiO2 40 06/16/24 16:45 Intake & Output 06/17/24 06/18/24 06/18/24 18:59 06:59 18:59 Intake Total 1044.360 689.726 36 Output Total 688 920 70 Balance 356.360 -230.274 -34 Weight 92.5 kg 96.3 kg Intake: IV 1022 432 36 Albumin Human 5% 250 ml 500 In Empty Bag 1 bag @ 250 mls/hr IVPB Q1HR PRN Rx#: [id number] [place] and CVP 72 72 6 Sodium Chloride 0.9% 1, 400 360 30 000 ml @ 20 mls/hr IV . Q24H [facility] Rx#:[id number] ceFAZolin 2 gm In Sodium 50 Chloride 0.9% 50 ml @ 100 mls/hr IVPB Q8HR [facility] Rx# :[id number] Intake, IV Titration 22.360 17.726 Amount Insulin Regular 100 unit 22.360 17.726 In Sodium Chloride 0.9% 100 ml @ Per Protocol IV .Q0M [facility] Rx#:[id number] Oral 240 Output: Chest Tube Drainage 258 90 0 Left Pleural 158 70 0 Right Pleural/Mediastinal 100 20 0 Urine 430 830 70 Other: Voiding Method Indwelling Catheter Indwelling Catheter ABP, PAP, CO, CI - Last Documented Arterial Blood Pressure 113/54 Pulmonary Artery Pressure 28/20 Cardiac Output 5.2 Cardiac Index 2.6 - Exam CONSTITUTIONAL: Appears comfortable, cooperative, no acute distress RESPIRATORY: Lungs sounds diminished in the bases bilaterally. Respirations even, nonlabored. Currently on 2 L nasal cannula with oxygen saturation 96%. Able to achieve 750 mL on incentive spirometry. Strong cough. CARDIOVASCULAR: S1, S2 present. Regular rate and rhythm, sinus rhythm on telemetry. Sternum stable. Palpable peripheral pulses bilaterally. Trace bilateral lower extremity edema present. No calf pain or tenderness noted. Heart hugger in place with patient demonstrating appropriate use. Antiembolism stockings, SCDs present. GASTROINTESTINAL: Abdomen soft, nontender, nondistended. Active bowel sounds present 4 quadrants. Tolerating diet. Positive flatus GENITOURINARY: Martinez present draining clear, yellow urine. Output overnight 20-100 mL per hour, 1140 mL in the last 24 hours INTEGUMENTARY: Skin is warm and dry with evidence of good perfusion. Anterior chest incision well approximated and covered with dry intact dressing. Left radial artery site well approximated without redness or drainage. NEUROLOGIC: Cranial nerves II through XII intact MUSKULOSKELETAL: Able to move all extremities, strength equal bilaterally, gait normal PSYCHIATRIC: Alert and oriented to person place and time, appropriate affect, intact judgment and insight INVASIVE LINES AND TUBES: Mediastinal/left chest tubes present and connected to wall suction, no air leaks present. Mediastinal tube with 20 mL serosanguineous drainage overnight, 150 mL in the last 24 hours. Left pleural chest tube with 40 mL serosanguineous drainage overnight, 250 mL in the last 24 hours. A/V epicardial pacemaker wires present, grounded. Right internal jugular cordis, right radial arterial line present - Allied health notes Allied health notes reviewed: nursing - Labs CBC & Chem 7: 06/18/24 04:10 06/18/24 04:10 Labs: Abnormal Lab Results - Last 24 Hours (Table) 06/17/24 06/17/24 06/17/24 Range/Units 08:59 10:18 11:22 WBC (3.8-10.6) k/uL RBC (4.30-5.90) m/uL Hgb (13.0-17.5) gm/dL Hct (39.0-53.0) % Plt Count (150-450) k/uL Neutrophils # (1.3-7.7) k/uL Sodium (137-145) mmol/L BUN (9-20) mg/dL Glucose (74-99) mg/dL POC Glucose (mg/dL) 114 H 115 H 116 H (70-110) mg/dL Total Bilirubin (0.2-1.3) mg/dL Alkaline Phosphatase (38-126) U/L Total Protein (6.3-8.2) g/dL 06/17/24 06/17/24 06/17/24 Range/Units 14:15 15:34 17:25 WBC (3.8-10.6) k/uL RBC (4.30-5.90) m/uL Hgb (13.0-17.5) gm/dL Hct (39.0-53.0) % Plt Count (150-450) k/uL Neutrophils # (1.3-7.7) k/uL Sodium (137-145) mmol/L BUN (9-20) mg/dL Glucose (74-99) mg/dL POC Glucose (mg/dL) 137 H 136 H 116 H (70-110) mg/dL Total Bilirubin (0.2-1.3) mg/dL Alkaline Phosphatase (38-126) U/L Total Protein (6.3-8.2) g/dL 06/17/24 06/17/24 06/17/24 Range/Units 18:31 20:08 21:14 WBC (3.8-10.6) k/uL RBC (4.30-5.90) m/uL Hgb (13.0-17.5) gm/dL Hct (39.0-53.0) % Plt Count (150-450) k/uL Neutrophils # (1.3-7.7) k/uL Sodium (137-145) mmol/L BUN (9-20) mg/dL Glucose (74-99) mg/dL POC Glucose (mg/dL) 148 H 145 H 134 H (70-110) mg/dL Total Bilirubin (0.2-1.3) mg/dL Alkaline Phosphatase (38-126) U/L Total Protein (6.3-8.2) g/dL 06/17/24 06/18/24 06/18/24 Range/Units 22:14 00:03 01:03 WBC (3.8-10.6) k/uL RBC (4.30-5.90) m/uL Hgb (13.0-17.5) gm/dL Hct (39.0-53.0) % Plt Count (150-450) k/uL Neutrophils # (1.3-7.7) k/uL Sodium (137-145) mmol/L BUN (9-20) mg/dL Glucose (74-99) mg/dL POC Glucose (mg/dL) 124 H 114 H 126 H (70-110) mg/dL Total Bilirubin (0.2-1.3) mg/dL Alkaline Phosphatase (38-126) U/L Total Protein (6.3-8.2) g/dL 06/18/24 06/18/24 06/18/24 Range/Units 03:07 04:09 04:10 WBC 13.2 H (3.8-10.6) k/uL RBC 2.92 L (4.30-5.90) m/uL Hgb 9.5 L D (13.0-17.5) gm/dL Hct 27.7 L (39.0-53.0) % Plt Count 122 L (150-450) k/uL Neutrophils # 10.6 H (1.3-7.7) k/uL Sodium (137-145) mmol/L BUN (9-20) mg/dL Glucose (74-99) mg/dL POC Glucose (mg/dL) 123 H 117 H (70-110) mg/dL Total Bilirubin (0.2-1.3) mg/dL Alkaline Phosphatase (38-126) U/L Total Protein (6.3-8.2) g/dL 06/18/24 06/18/24 Range/Units 04:10 06:50 WBC (3.8-10.6) k/uL RBC (4.30-5.90) m/uL Hgb (13.0-17.5) gm/dL Hct (39.0-53.0) % Plt Count (150-450) k/uL Neutrophils # (1.3-7.7) k/uL Sodium 135 L (137-145) mmol/L BUN 8 L (9-20) mg/dL Glucose 110 H (74-99) mg/dL POC Glucose (mg/dL) 117 H (70-110) mg/dL Total Bilirubin 2.1 H (0.2-1.3) mg/dL Alkaline Phosphatase 36 L (38-126) U/L Total Protein 5.6 L (6.3-8.2) g/dL - Imaging and Cardiology Chest x-ray: report reviewed, image reviewed Assessment and Plan Assessment: Double vessel diffuse coronary artery disease with totally occluded left anterior descending artery, status post two-vessel CABG Preserved left ventricular function Postoperative acute blood loss anemia, expected given hemodilution and cardio pulmonary bypass pump History of hyperlipidemia, cholesterol 153, calculated LDL 46.4, triglycerides 287 Hypertension Chronic tobacco dependance with cessation 05/26/24 Mild obstructive lung disease, preoperative FEV1 70% of predicted EtOH abuse with cessation 05/26/24 Daily marijuana use Family history of premature coronary artery disease in his father Plan: Continue to maximize medical therapy with aspirin, statin, Plavix, and beta- frank therapy. Will increase beta-frank therapy as tolerated, increased to 25 mg twice daily today Continue amiodarone 400 mg p.o. twice daily for atrial fibrillation prophylaxis, no atrial fibrillation reported to date, currently in normal sinus rhythm. Will start ARB for afterload reduction when blood pressure able to tolerate Wean oxygen as tolerated. Encourage incentive spirometry use 10 times every hour while awake. Bronchodilators per pulmonology Will monitor daily labs and chest x-rays, electrolyte replacement per protocol. Will give 20 mg IV push Lasix today Increase activity, ambulate as tolerated. PT/OT/cardiac rehab following GI/DVT prophylaxis Insulin management per internal medicine, patient is not diabetic, preoperative hemoglobin A1c 5.6% Pain control per current medication regimen Discontinue Cordis, will discontinue arterial line when transferred to 3 S. Will discontinue mediastinal chest tube, continue left pleural chest tube for another 24 hours, monitor output. Discontinue Martinez catheter after diuresis from Lasix, may bladder scan and straight cath for greater than 300 mL residual Continue to monitor and record strict accurate intake and output. Daily weights Will place transfer orders for 3 S. cardiac stepdown unit, may transfer when bed available More recommendations to follow based on patient's clinical course
[2024-06-18 10:56] LABS: Glucose,Whole Blood 143 mg/dL (70-110)
[2024-06-18] MEDS: INSULIN ASPART (NovoLOG) 100 UNIT/ML VIAL SQ SCH (11:26)
--- NOTE | 2024-06-18 12:03 | P.PN ---
Subjective This is a 49-year-old male patient with a known history of chronic and ongoing tobacco dependence, chronic daily alcohol use including 1 pint daily, marijuana use hyperlipidemia who had undergone cardiac catheterization in March 2024 for ongoing chest pain. He was found to have a calcified left anterior descending artery, chronic total occlusion and collaterals from the right coronary system, chronically occluded third obtuse marginal branch as well as critical stenosis in the first obtuse marginal coronary artery and mild disease in the right coronary artery. He was recommended surgical revascularization. He was brought in today electively for the surgery. A double coronary artery bypass grafting utilizing the TEJADA to the LAD and the left radial artery from the aorta to the third obtuse marginal artery. Exclusion of left atrial appendage. He is today postoperatively in the intensive care unit. He is currently intubated on the mechanical ventilator and assist-control mode at a rate of 14, tidal volume 450, FiO2 100% and a PEEP of 10. Follow-up blood gases revealed a PaO2 of 405. pCO2 of 47 and a pH of 7.33. FiO2 was decreased to 60%. Cardiac output 5.2. Cardiac index 2.6. CVP 17. The [place] catheter was inadvertently removed as it was coiled in the right ventricle. He is continued on propofol at 40 mcg/kg/min. Nitroglycerin at 5 mg/min. Insulin drip at 0.5 units/h. Normal saline at 40 mL/h. He has a mediastinal and left pleural chest tubes in place. Pacer wires in place. Fvaian wrap to the right upp er forearm. Favian wraps to the bilateral lower extremities. Chest x-ray reveals endotracheal and nasogastric tubes in place. Left thoracotomy in place without evidence of pneumothorax. Chest tube in the mediastinum. White count 17.4. Hemoglobin 11.8. Platelets 146. INR 1.1. Sodium 137. Potassium 4.0. Bicarb 24. BUN 9. Creatinine 0.64. Glucose 124. Magnesium 2.5. He has been initiated on DuoNeb inhalations. Heparin for DVT prophylaxis The patient was seen today June 17, 2024 in follow-up in the intensive care unit. He is awake and alert in no acute distress. Sitting up in a chair at the bedside. Maintaining O2 saturations in the 90s on 2 L/min per nasal cannula. Postoperative day #1. Left pleural and mediastinal chest tubes remain in place. Chest x-ray reveals persistent cardiomegaly with slight worsening central vascular congestion and developing left basilar infiltrate and/or atelectasis. He is encouraged regarding the increased use of the incentive spirometer. White count 16.2. Hemoglobin 11.1. Platelets 156. Sodium 137. Potassium 3.6. Bicarb 23. BUN 9. Creatinine 0.62. Glucose 109. AST 42. ALT 16. He remains on bronchodilators. Heparin for DVT prophylaxis. Currently on amiodarone and Lopressor. Insulin drip at 2 units/h. Normal saline at 50 mL/h. The patient was seen today June 18, 2024 and follow-up in the intensive care unit. He is awake and alert and in no acute distress. Sitting up in the chair at bedside. Maintaining O2 saturations in the mid to upper 90s on 2L per nasal cannula. Postoperative day #2. Left pleural and mediastinal chest tubes remain in place without signs of erythema or infection. Chest x-ray interpreted by me shows potentially slightly worsening left basilar infiltrate and/or atelectasis. Patient continues to be encouraged to increase his use of the incentive spirometer. Labs are significant for WBC 13.2, hemoglobin 9.5, platelet count 122,000, sodium 135, BUN 8, creatinine 0.66, glucose 110, and T. bili 2.1. Patient remains on bronchodilators and heparin for DVT prophylaxis. Patient remains on amiodarone and Lopressor. Insulin drip discontinued this morning and sliding scale started. Normal saline at KVO 20 mL per hour. Will receive one- time dose of Lasix 20 mg per surgery. Physical exam: GENERAL EXAM: Awake, alert 49-year-old male, up in a chair, on 2 L nasal cannula, fairly comfortable in no apparent distress. HEAD: Normocephalic. EYES: Normal reaction of pupils, equal size. NOSE: Clear with pink turbinates. THROAT: No erythema or exudates. NECK: No masses, no JVD. CHEST: Sternal dressing dry and intact. Mediastinal and left chest tubes in place. Pacer wires in place. LUNGS: Equal air entry with no crackles, wheeze, rhonchi or dullness. CVS: S1 and S2 normal with no audible murmur, regular rhythm. ABDOMEN: No hepatosplenomegaly, no guarding or rigidity. SPINE: No scoliosis or deformity SKIN: No rashes CENTRAL NERVOUS SYSTEM: Sedated, tone is normal in all 4 extremities. EXTREMITIES: Left upper extremity with a WILDER drain, Favian wrap in place. Bilateral lower extremity Favian wraps in place. Peripheral pulses are intact. Assessment: Coronary artery disease s/p coronary artery bypass grafting utilizing a TEJADA to the LAD, left radial artery from the aorta to the third obtuse marginal artery. Exclusion of left atrial appendage. Postoperative day #2 Mechanical ventilation management, expected outcome of surgery. Recovered and on 2 L nasal cannula Chronic and ongoing tobacco dependence Chronic daily alcohol use 1 pint daily Chronic daily marijuana use Hyperlipidemia Hypertension Family history of premature coronary artery disease Plan: The patient was seen and evaluated Chest x-ray, labs and medications reviewed Discontinued insulin drip and started on sliding scale Received one-time dose of Lasix 20 mg Likely downgrade to 3 S. today Continue bronchodilators every 4 hours OxyIR as needed for pain Encouraged the increased use of the incentive spirometer Heparin for DVT prophylaxis We will continue to follow I have personally seen and examined the patient, performed the documentation and the assessment and plan as written. Number of minutes spent on the visit: 10 Dictation was produced using [employer] dictation software. Please excuse any grammatical, word or spelling errors. Objective - Vital Signs Vital signs: Vital Signs Temp 99.9 F H 06/18/24 04:00 Pulse 94 06/18/24 07:00 Resp 24 06/18/24 07:00 BP 129/82 06/18/24 07:00 Pulse Ox 96 06/18/24 07:00 FiO2 40 06/16/24 16:45 Intake & Output 06/17/24 06/18/24 06/18/24 18:59 06:59 18:59 Intake Total 1044.360 689.726 36 Output Total 688 920 70 Balance 356.360 -230.274 -34 Weight 92.5 kg 96.3 kg Intake: IV 1022 432 36 Albumin Human 5% 250 ml 500 In Empty Bag 1 bag @ 250 mls/hr IVPB Q1HR PRN Rx#: [id number] [place] and CVP 72 72 6 Sodium Chloride 0.9% 1, 400 360 30 000 ml @ 20 mls/hr IV . Q24H [facility] Rx#:[id number] ceFAZolin 2 gm In Sodium 50 Chloride 0.9% 50 ml @ 100 mls/hr IVPB Q8HR [facility] Rx# :[id number] Intake, IV Titration 22.360 17.726 Amount Insulin Regular 100 unit 22.360 17.726 In Sodium Chloride 0.9% 100 ml @ Per Protocol IV .Q0M [facility] Rx#:[id number] Oral 240 Output: Chest Tube Drainage 258 90 0 Left Pleural 158 70 0 Right Pleural/Mediastinal 100 20 0 Urine 430 830 70 Other: Voiding Method Indwelling Catheter Indwelling Catheter ABP, PAP, CO, CI - Last Documented Arterial Blood Pressure 113/54 Pulmonary Artery Pressure 28/20 Cardiac Output 5.2 Cardiac Index 2.6 - Labs CBC & Chem 7: 06/18/24 04:10 06/18/24 04:10 Labs: Abnormal Lab Results - Last 24 Hours (Table) 06/17/24 06/17/24 06/17/24 Range/Units 08:59 10:18 11:22 WBC (3.8-10.6) k/uL RBC (4.30-5.90) m/uL Hgb (13.0-17.5) gm/dL Hct (39.0-53.0) % Plt Count (150-450) k/uL Neutrophils # (1.3-7.7) k/uL Sodium (137-145) mmol/L BUN (9-20) mg/dL Glucose (74-99) mg/dL POC Glucose (mg/dL) 114 H 115 H 116 H (70-110) mg/dL Total Bilirubin (0.2-1.3) mg/dL Alkaline Phosphatase (38-126) U/L Total Protein (6.3-8.2) g/dL 06/17/24 06/17/24 06/17/24 Range/Units 14:15 15:34 17:25 WBC (3.8-10.6) k/uL RBC (4.30-5.90) m/uL Hgb (13.0-17.5) gm/dL Hct (39.0-53.0) % Plt Count (150-450) k/uL Neutrophils # (1.3-7.7) k/uL Sodium (137-145) mmol/L BUN (9-20) mg/dL Glucose (74-99) mg/dL POC Glucose (mg/dL) 137 H 136 H 116 H (70-110) mg/dL Total Bilirubin (0.2-1.3) mg/dL Alkaline Phosphatase (38-126) U/L Total Protein (6.3-8.2) g/dL 06/17/24 06/17/24 06/17/24 Range/Units 18:31 20:08 21:14 WBC (3.8-10.6) k/uL RBC (4.30-5.90) m/uL Hgb (13.0-17.5) gm/dL Hct (39.0-53.0) % Plt Count (150-450) k/uL Neutrophils # (1.3-7.7) k/uL Sodium (137-145) mmol/L BUN (9-20) mg/dL Glucose (74-99) mg/dL POC Glucose (mg/dL) 148 H 145 H 134 H (70-110) mg/dL Total Bilirubin (0.2-1.3) mg/dL Alkaline Phosphatase (38-126) U/L Total Protein (6.3-8.2) g/dL 06/17/24 06/18/24 06/18/24 Range/Units 22:14 00:03 01:03 WBC (3.8-10.6) k/uL RBC (4.30-5.90) m/uL Hgb (13.0-17.5) gm/dL Hct (39.0-53.0) % Plt Count (150-450) k/uL Neutrophils # (1.3-7.7) k/uL Sodium (137-145) mmol/L BUN (9-20) mg/dL Glucose (74-99) mg/dL POC Glucose (mg/dL) 124 H 114 H 126 H (70-110) mg/dL Total Bilirubin (0.2-1.3) mg/dL Alkaline Phosphatase (38-126) U/L Total Protein (6.3-8.2) g/dL 06/18/24 06/18/24 06/18/24 Range/Units 03:07 04:09 04:10 WBC 13.2 H (3.8-10.6) k/uL RBC 2.92 L (4.30-5.90) m/uL Hgb 9.5 L D (13.0-17.5) gm/dL Hct 27.7 L (39.0-53.0) % Plt Count 122 L (150-450) k/uL Neutrophils # 10.6 H (1.3-7.7) k/uL Sodium (137-145) mmol/L BUN (9-20) mg/dL Glucose (74-99) mg/dL POC Glucose (mg/dL) 123 H 117 H (70-110) mg/dL Total Bilirubin (0.2-1.3) mg/dL Alkaline Phosphatase (38-126) U/L Total Protein (6.3-8.2) g/dL 06/18/24 06/18/24 Range/Units 04:10 06:50 WBC (3.8-10.6) k/uL RBC (4.30-5.90) m/uL Hgb (13.0-17.5) gm/dL Hct (39.0-53.0) % Plt Count (150-450) k/uL Neutrophils # (1.3-7.7) k/uL Sodium 135 L (137-145) mmol/L BUN 8 L (9-20) mg/dL Glucose 110 H (74-99) mg/dL POC Glucose (mg/dL) 117 H (70-110) mg/dL Total Bilirubin 2.1 H (0.2-1.3) mg/dL Alkaline Phosphatase 36 L (38-126) U/L Total Protein 5.6 L (6.3-8.2) g/dL
--- NOTE | 2024-06-18 12:04 | P.PN ---
Subjective Progress Note Date: 06/18/24 Hospital Course: Patient is a 49-year-old male with past medical history of tobacco use disorder, hyperlipidemia, with no use, marijuana use, CAD s/p heart cath March 2024- Calcified left anterior descending coronary artery with chronic total occlusion with collaterals from the right coronary system, chronically occluded right to's marginal as well as critical stenosis in the first acute marginal coronary artery, mild disease, positive family history of premature CAD, who presented for elective CABG that was performed on 06/16/2024, TEJADA to LAD bypass, left radial to OM 3 bypass, transferred to ICU IM Consulted for medical management. patient was extubated on 06/16, currently satting well on nasal cannula, no pressor support. Sitting in the recliner, complaining of postop pain, diff iculties taking deep breath in. Pain is relatively better on 06/18 in the AM. Insulin drip discontinued, started on SSI. On chest x-ray more prominent vascular congestion, atelectasis, IV Lasix given, encouraged to work with incentive spirometry hourly. Pertinent positives and negatives as discussed above, a complete review of systems was performed and all other systems are negative. Vitals Signs Reviewed. General: nontoxic, no distress, appears at stated age Derm: warm, dry Head: atraumatic, normocephalic, symmetric Eyes: EOMI, no lid lag, anicteric sclera, pupils equal round reactive to light ENT: Nose and ears atraumatic Neck: No thyromegaly, supple Mouth: no lip lesion, mucus membranes moist Cardiovascular: S1S2 reg, no murmur, no edema, dressing dry, clean, manage MS normal and left chest tube in place Lungs: clear to auscultation bilateral, no rhonchi, no rales, no wheeze, no accessory muscle use Abdominal: soft, nontender to palpation, no guarding, no appreciable organ omegaly Ext: no gross muscle atrophy, muscle strength muscle strength 5 out of 5 in all 4 extremities, no contractures Neuro: CN II-XII grossly intact Psych: Alert, oriented, appropriate affect Lab work reviewed: Reactive leukocytosis improving, hemoglobin dropped to 9.5, platelet count 122, sodium 135, normal creatinine, potassium at goal, normal AST and ALT. Assessment and Plan: CAD s/p TEJADA to LAD bypass 06/16/2024 Acute postop blood loss anemia Thrombocytopenia Leukocytosis, reactive Hypertension Hyperlipidemia Tobacco use disorder, quit 05/26/24 Atenolol abuse, last drink 05/26/24 Family history of premature CAD Acute postop hypoxic respiratory failure -Cardiology, cardiothoracic surgery, neurology following -Extubated 06/16 -Insulin drip discontinued, continue with Accu-Cheks, SSI -Aspirin 325, atorvastatin 40 daily, Plavix 75 -Metoprolol 12.5 twice daily -Amiodarone 400 twice daily for A-fib prophylaxis -Protonix 40 daily -Monitor CBC, BMP, magnesium, -Continue thiamine and folic acid, last drink 05/26/24 -Patient was extubated 02/14, currently on nasal cannula, wean off as tolerated -PT OT, incentive spirometry -Martinez in place, chest tubes in place -1 dose of Lasix 06/18 -Present on ICU rounds, patient stable for transfer to [facility]. Objective - Vital Signs Vital signs: Vital Signs Temp 98 F 06/18/24 08:00 Pulse 95 06/18/24 11:37 Resp 21 06/18/24 11:00 BP 96/69 06/18/24 11:00 Pulse Ox 99 06/18/24 11:00 FiO2 40 06/16/24 16:45 Intake & Output 06/17/24 06/18/24 06/18/24 18:59 06:59 18:59 Intake Total 1044.360 689.726 137 Output Total 688 920 815 Balance 356.360 -230.274 -678 Weight 92.5 kg 96.3 kg Intake: IV 1022 432 57 Albumin Human 5% 250 ml 500 In Empty Bag 1 bag @ 250 mls/hr IVPB Q1HR PRN Rx#: [id number] [place] and CVP 72 72 27 Sodium Chloride 0.9% 1, 400 360 30 000 ml @ 20 mls/hr IV . Q24H [facility] Rx#:[id number] ceFAZolin 2 gm In Sodium 50 Chloride 0.9% 50 ml @ 100 mls/hr IVPB Q8HR [facility] Rx# :[id number] Intake, IV Titration 22.360 17.726 80 Amount Insulin Regular 100 unit 22.360 17.726 In Sodium Chloride 0.9% 100 ml @ Per Protocol IV .Q0M [facility] Rx#:[id number] Sodium Chloride 0.9% 1, 80 000 ml @ 20 mls/hr IV . Q24H [facility] Rx#:[id number] Oral 240 Output: Chest Tube Drainage 258 90 20 Left Pleural 158 70 20 Right Pleural/Mediastinal 100 20 0 Urine 430 830 795 Other: Voiding Method Indwelling Catheter Indwelling Catheter ABP, PAP, CO, CI - Last Documented Arterial Blood Pressure 90/50 Pulmonary Artery Pressure 28/20 Cardiac Output 5.2 Cardiac Index 2.6 - Labs CBC & Chem 7: 06/18/24 04:10 06/18/24 04:10 Labs: Abnormal Lab Results - Last 24 Hours (Table) 06/17/24 06/17/24 06/17/24 Range/Units 14:15 15:34 17:25 WBC (3.8-10.6) k/uL RBC (4.30-5.90) m/uL Hgb (13.0-17.5) gm/dL Hct (39.0-53.0) % Plt Count (150-450) k/uL Neutrophils # (1.3-7.7) k/uL Sodium (137-145) mmol/L BUN (9-20) mg/dL Glucose (74-99) mg/dL POC Glucose (mg/dL) 137 H 136 H 116 H (70-110) mg/dL Total Bilirubin (0.2-1.3) mg/dL Alkaline Phosphatase (38-126) U/L Total Protein (6.3-8.2) g/dL 06/17/24 06/17/24 06/17/24 Range/Units 18:31 20:08 21:14 WBC (3.8-10.6) k/uL RBC (4.30-5.90) m/uL Hgb (13.0-17.5) gm/dL Hct (39.0-53.0) % Plt Count (150-450) k/uL Neutrophils # (1.3-7.7) k/uL Sodium (137-145) mmol/L BUN (9-20) mg/dL Glucose (74-99) mg/dL POC Glucose (mg/dL) 148 H 145 H 134 H (70-110) mg/dL Total Bilirubin (0.2-1.3) mg/dL Alkaline Phosphatase (38-126) U/L Total Protein (6.3-8.2) g/dL 06/17/24 06/18/24 06/18/24 Range/Units 22:14 00:03 01:03 WBC (3.8-10.6) k/uL RBC (4.30-5.90) m/uL Hgb (13.0-17.5) gm/dL Hct (39.0-53.0) % Plt Count (150-450) k/uL Neutrophils # (1.3-7.7) k/uL Sodium (137-145) mmol/L BUN (9-20) mg/dL Glucose (74-99) mg/dL POC Glucose (mg/dL) 124 H 114 H 126 H (70-110) mg/dL Total Bilirubin (0.2-1.3) mg/dL Alkaline Phosphatase (38-126) U/L Total Protein (6.3-8.2) g/dL 06/18/24 06/18/24 06/18/24 Range/Units 03:07 04:09 04:10 WBC 13.2 H (3.8-10.6) k/uL RBC 2.92 L (4.30-5.90) m/uL Hgb 9.5 L D (13.0-17.5) gm/dL Hct 27.7 L (39.0-53.0) % Plt Count 122 L (150-450) k/uL Neutrophils # 10.6 H (1.3-7.7) k/uL Sodium (137-145) mmol/L BUN (9-20) mg/dL Glucose (74-99) mg/dL POC Glucose (mg/dL) 123 H 117 H (70-110) mg/dL Total Bilirubin (0.2-1.3) mg/dL Alkaline Phosphatase (38-126) U/L Total Protein (6.3-8.2) g/dL 06/18/24 06/18/24 06/18/24 Range/Units 04:10 06:50 08:16 WBC (3.8-10.6) k/uL RBC (4.30-5.90) m/uL Hgb (13.0-17.5) gm/dL Hct (39.0-53.0) % Plt Count (150-450) k/uL Neutrophils # (1.3-7.7) k/uL Sodium 135 L (137-145) mmol/L BUN 8 L (9-20) mg/dL Glucose 110 H (74-99) mg/dL POC Glucose (mg/dL) 117 H 116 H (70-110) mg/dL Total Bilirubin 2.1 H (0.2-1.3) mg/dL Alkaline Phosphatase 36 L (38-126) U/L Total Protein 5.6 L (6.3-8.2) g/dL 06/18/24 Range/Units 10:53 WBC (3.8-10.6) k/uL RBC (4.30-5.90) m/uL Hgb (13.0-17.5) gm/dL Hct (39.0-53.0) % Plt Count (150-450) k/uL Neutrophils # (1.3-7.7) k/uL Sodium (137-145) mmol/L BUN (9-20) mg/dL Glucose (74-99) mg/dL POC Glucose (mg/dL) 143 H (70-110) mg/dL Total Bilirubin (0.2-1.3) mg/dL Alkaline Phosphatase (38-126) U/L Total Protein (6.3-8.2) g/dL
[2024-06-18 16:10] LABS: Glucose,Whole Blood 115 mg/dL (70-110)
--- NOTE | 2024-06-18 19:12 | PN ---
PROGRESS NOTE SUBJECTIVE: Vini is a 49-year-old gentleman, who underwent bypass surgery postop day #2. This morning, he complains of discomfort at the chest incisions with cough. Otherwise, doing well. Remains hemodynamically stable. OBJECTIVE: VITAL SIGNS: Heart rate is 90 beats per minute, blood pressure is 104/55, respiratory rate is 18, O2 saturation is 97% on 2 L. CHEST: Reveals good air entry bilaterally. HEART: Reveals first and second heart sounds. No gallop. ABDOMEN: Soft. EXTREMITIES: Did not reveal any edema. Peripheral pulses are felt. LABORATORY DATA: Labs show a hemoglobin of 9.5, potassium is 4, creatinine is 0.6. MEDICATIONS: The patient is currently on, 1. Amiodarone 400 b.i.d. 2. Plavix. 3. Aspirin. ASSESSMENT: Coronary artery disease, status post coronary artery bypass graft with TEJADA to LAD and left radial artery graft to the OM. PLAN: He will continue current medications. Increase his activity. Incentive spirometry. MMODL / IJN: [id number] /
[2024-06-18 21:53] LABS: Glucose,Whole Blood 150 mg/dL (70-110)
[2024-06-19 04:43] LABS: Basophils % (A) 0 %; Eosinophils % (A) 0 %; HCT 28.3 % (39.0-53.0); HGB 9.7 gm/dL (13.0-17.5); Lymphocytes # (A) 1.9 k/uL (1.0-4.8); Lymphocytes % (A) 17 %; MCH 32.6 pg (25.0-35.0); MCHC 34.2 g/dL (31.0-37.0); MCV 95.4 fL (80.0-100.0); Mean Platelet Volume 8.2; Monocytes # (A) 0.8 k/uL (0-1.0); Monocytes % (A) 7 %; Neutrophils # (A) 7.9 k/uL (1.3-7.7); Neutrophils % (A) 73 %; Platelet Count 159 k/uL (150-450); RBC 2.97 m/uL (4.30-5.90); WBC 10.9 k/uL (3.8-10.6)
[2024-06-19 05:17] LABS: ALT 11 U/L (4-49); AST 26 U/L (17-59); African American GFR (CKD) >90 (>60 ml/min/1.73 sqM); Albumin 3.8 g/dL (3.5-5.0); Alkaline Phosphatase 46 U/L (38-126); Anion Gap 12 mmol/L; Blood Urea Nitrogen 11 mg/dL (9-20); Carbon Dioxide 25 mmol/L (22-30); Chloride 97 mmol/L (98-107); Glucose 117 mg/dL (74-99); Non-African American GFR(CKD) >90 (>60 ml/min/1.73 sqM); Potassium 3.9 mmol/L (3.5-5.1); Sodium 134 mmol/L (137-145); Total Bilirubin 2.1 mg/dL (0.2-1.3); Total Protein 5.7 g/dL (6.3-8.2)
[2024-06-19] MEDS: POTASSIUM CHLORIDE ER 20 MEQ TAB.ER PO STA (06:34)
--- NOTE | 2024-06-19 07:10 | XR ---
EXAMINATION TYPE: XR chest 1V portable DATE OF EXAM: 06/19/2024 COMPARISON: 06/18/2024 CLINICAL INDICATION: Male, 49 years old with history of Postcardiac surgery; TECHNIQUE: Single frontal view of the chest is obtained. Findings: Prior CABG surgery. There is no change in the left chest tube and no pneumothorax. The opacities in the left lung have decreased in the interval and there is improved aeration left pablito g base. There is been development of small focal opacity in the right upper lung zone possibly focal atelectasis. IMPRESSION: Overall mild improvement in the left lung base as above. [facility], , 06/19/2024 7:08 AM
--- NOTE | 2024-06-19 07:22 | P.PN ---
Subjective Progress Note Date: 06/19/24 Principal diagnosis: Double vessel diffuse coronary artery disease with totally occluded left anterior descending artery, preserved left ventricular function. History of hyperlipidemia, hypertension, chronic tobacco dependance with cessation 05/26/24, EtOH abuse with cessation 05/26/24, daily marijuana use, and family history of premature coronary artery disease in his father POD #3 total arterial double coronary artery bypass grafting using the in situ left intramammary artery to the left anterior descending artery, the left radial artery from the aorta to the third obtuse marginal artery, exclusion of the left atrial appendage using a 35mm AtriClip, endoscopic harvesting of the left radial artery, intraoperative Graft flow measurements using the iFormularystim system, intraoperative transesophageal echocardiogram and epiaortic scanning Postoperative acute blood loss anemia, expected given hemodilution and cardiopulmonary bypass pump The patient was seen and examined this morning sitting up in recliner in the intensive care unit in no acute distress. Remains in sinus rhythm, hemodynamically stable on no inotropes or pressors. States pain is mostly controlled on current medication regimen, denies shortness of breath. He has been ambulatory in the hallway multiple times with standby assist. His only real complaint is of a sore butt. Chest x-ray, lab work reviewed. Left pleural chest tube remains. No signs of alcohol withdrawal. Discussed with Dr. Pleitez. Transfer orders were placed for 3 S. cardiac stepdown unit yesterday, no bed availability. No other new concerns. Objective - Vital Signs Vital signs: Vital Signs Temp 98.7 F 06/19/24 04:00 Pulse 89 06/19/24 04:00 Resp 17 06/19/24 04:00 BP 107/77 06/19/24 04:00 Pulse Ox 95 06/19/24 04:00 FiO2 40 06/16/24 16:45 Intake & Output 06/18/24 06/19/24 06/19/24 18:59 06:59 18:59 Intake Total 697 Output Total 1045 830 Balance -348 -830 Weight 97.2 kg Intake: IV 57 Huger and CVP 27 Sodium Chloride 0.9% 1, 30 000 ml @ 20 mls/hr IV . Q24H [facility] Rx#:[id number] Intake, IV Titration 160 Amount Sodium Chloride 0.9% 1, 160 000 ml @ 20 mls/hr IV . Q24H [facility] Rx#:[id number] Oral 480 Output: Chest Tube Drainage 90 30 Left Pleural 90 30 Right Pleural/Mediastinal 0 Urine 955 800 Other: Voiding Method Indwelling Catheter Toilet Urinal # Voids 1 ABP, PAP, CO, CI - Last Documented Arterial Blood Pressure 31/27 Pulmonary Artery Pressure 28/20 Cardiac Output 5.2 Cardiac Index 2.6 - Exam CONSTITUTIONAL: Appears comfortable, cooperative, no acute distress RESPIRATORY: Lungs sounds diminished in the bases bilaterally. Respirations even, nonlabored. Currently on room air with oxygen saturation 95%. Able to achieve 1000 mL on incentive spirometry. Strong cough. CARDIOVASCULAR: S1, S2 present. Regular rate and rhythm, sinus rhythm on telemetry. Sternum stable. Palpable peripheral pulses bilaterally. Trace bilateral lower extremity edema present. No calf pain or tenderness noted. Heart hugger in place with patient demonstrating appropriate use. Antiembolism stockings, SCDs present. GASTROINTESTINAL: Abdomen soft, nontender, nondistended. Active bowel sounds present 4 quadrants. Tolerating diet. Positive flatus GENITOURINARY: Martinez discontinued yesterday, continues to void. Output 1755 mL in the last 24 hours INTEGUMENTARY: Skin is warm and dry with evidence of good perfusion. Anterior chest incision well approximated and covered with dry intact dressing. Left radial artery site well approximated without redness or drainage. NEUROLOGIC: Cranial nerves II through XII intact MUSKULOSKELETAL: Able to move all extremities, strength equal bilaterally, gait normal PSYCHIATRIC: Alert and oriented to person place and time, appropriate affect, intact judgment and insight INVASIVE LINES AND TUBES: Left chest tube present and connected to wall suction, no air leaks present, 30 mL serosanguineous drainage overnight, 150 mL in the last 24 hours. A/V epicardial pacemaker wires present, grounded - Allied health notes Allied health notes reviewed: nursing - Labs CBC & Chem 7: 06/19/24 04:18 06/19/24 04:18 Labs: Abnormal Lab Results - Last 24 Hours (Table) 06/18/24 06/18/24 06/18/24 Range/Units 08:16 10:53 16:08 WBC (3.8-10.6) k/uL RBC (4.30-5.90) m/uL Hgb (13.0-17.5) gm/dL Hct (39.0-53.0) % Neutrophils # (1.3-7.7) k/uL Sodium (137-145) mmol/L Chloride (98-107) mmol/L Glucose (74-99) mg/dL POC Glucose (mg/dL) 116 H 143 H 115 H (70-110) mg/dL Total Bilirubin (0.2-1.3) mg/dL Total Protein (6.3-8.2) g/dL 06/18/24 06/19/24 06/19/24 Range/Units 21:52 04:18 04:18 WBC 10.9 H (3.8-10.6) k/uL RBC 2.97 L (4.30-5.90) m/uL Hgb 9.7 L (13.0-17.5) gm/dL Hct 28.3 L (39.0-53.0) % Neutrophils # 7.9 H (1.3-7.7) k/uL Sodium 134 L (137-145) mmol/L Chloride 97 L (98-107) mmol/L Glucose 117 H (74-99) mg/dL POC Glucose (mg/dL) 150 H (70-110) mg/dL Total Bilirubin 2.1 H (0.2-1.3) mg/dL Total Protein 5.7 L (6.3-8.2) g/dL - Imaging and Cardiology Chest x-ray: report reviewed, image reviewed Assessment and Plan Assessment: Double vessel diffuse coronary artery disease with totally occluded left anterior descending artery, status post two-vessel CABG Preserved left ventricular function Postoperative acute blood loss anemia, expected given hemodilution and cardiopulmonary bypass pump History of hyperlipidemia, cholesterol 153, calculated LDL 46.4, triglycerides 287 Hypertension Chronic tobacco dependance with cessation 05/26/24 Mild obstructive lung disease, preoperative FEV1 70% of predicted EtOH abuse with cessation 05/26/24 Daily marijuana use Family history of premature coronary artery disease in his father Plan: Continue to maximize medical therapy with aspirin, statin, Plavix, and beta- frank therapy. Will increase beta-frank therapy as tolerated, increased to 25 mg twice daily yesterday Continue amiodarone 400 mg p.o. twice daily for atrial fibrillation prophylaxis, no atrial fibrillation reported to date, currently in normal sinus rhythm. Will start ARB for afterload reduction when blood pressure able to tolerate Encourage incentive spirometry use 10 times every hour while awake. Bronchodilators per pulmonology Will monitor daily labs and chest x-rays, electrolyte replacement per protocol. Will give 40 mg IV push Lasix today Increase activity, ambulate as tolerated. PT/OT/cardiac rehab following GI/DVT prophylaxis Insulin management per internal medicine, patient is not diabetic, preoperative hemoglobin A1c 5.6% Pain control per current medication regimen Will discontinue left pleural chest tube Continue to monitor and record strict accurate intake and output. Daily weights Shower daily starting tomorrow Transfer orders placed yesterday for 3 S. cardiac stepdown unit, may transfer when bed available Discharge planning in progress, anticipate discharge to home with home care on Friday More recommendations to follow based on patient's clinical course
[2024-06-19] MEDS: FUROSEMIDE 10 MG/ML 4 ML VIAL IV STA (08:56)
--- NOTE | 2024-06-19 10:26 | P.PN ---
Subjective This is a 49-year-old male patient with a known history of chronic and ongoing tobacco dependence, chronic daily alcohol use including 1 pint daily, marijuana use hyperlipidemia who had undergone cardiac catheterization in March 2024 for ongoing chest pain. He was found to have a calcified left anterior descending artery, chronic total occlusion and collaterals from the right coronary system, chronically occluded third obtuse marginal branch as well as critical stenosis in the first obtuse marginal coronary artery and mild disease in the right coronary artery. He was recommended surgical revascularization. He was brought in today electively for the surgery. A double coronary artery bypass grafting utilizing the TEJADA to the LAD and the left radial artery from the aorta to the third obtuse marginal artery. Exclusion of left atrial appendage. He is today postoperatively in the intensive care unit. He is currently intubated on the mechanical ventilator and assist-control mode at a rate of 14, tidal volume 450, FiO2 100% and a PEEP of 10. Follow-up blood gases revealed a PaO2 of 405. pCO2 of 47 and a pH of 7.33. FiO2 was decreased to 60%. Cardiac output 5.2. Cardiac index 2.6. CVP 17. The [place] catheter was inadvertently removed as it was coiled in the right ventricle. He is continued on propofol at 40 mcg/kg/min. Nitroglycerin at 5 mg/min. Insulin drip at 0.5 units/h. Normal saline at 40 mL/h. He has a mediastinal and left pleural chest tubes in place. Pacer wires in place. Favian wrap to the right upp er forearm. Favian wraps to the bilateral lower extremities. Chest x-ray reveals endotracheal and nasogastric tubes in place. Left thoracotomy in place without evidence of pneumothorax. Chest tube in the mediastinum. White count 17.4. Hemoglobin 11.8. Platelets 146. INR 1.1. Sodium 137. Potassium 4.0. Bicarb 24. BUN 9. Creatinine 0.64. Glucose 124. Magnesium 2.5. He has been initiated on DuoNeb inhalations. Heparin for DVT prophylaxis The patient was seen today June 17, 2024 in follow-up in the intensive care unit. He is awake and alert in no acute distress. Sitting up in a chair at the bedside. Maintaining O2 saturations in the 90s on 2 L/min per nasal cannula. Postoperative day #1. Left pleural and mediastinal chest tubes remain in place. Chest x-ray reveals persistent cardiomegaly with slight worsening central vascular congestion and developing left basilar infiltrate and/or atelectasis. He is encouraged regarding the increased use of the incentive spirometer. White count 16.2. Hemoglobin 11.1. Platelets 156. Sodium 137. Potassium 3.6. Bicarb 23. BUN 9. Creatinine 0.62. Glucose 109. AST 42. ALT 16. He remains on bronchodilators. Heparin for DVT prophylaxis. Currently on amiodarone and Lopressor. Insulin drip at 2 units/h. Normal saline at 50 mL/h. The patient was seen today June 18, 2024 and follow-up in the intensive care unit. He is awake and alert and in no acute distress. Sitting up in the chair at bedside. Maintaining O2 saturations in the mid to upper 90s on 2L per nasal cannula. Postoperative day #2. Left pleural and mediastinal chest tubes remain in place without signs of erythema or infection. Chest x-ray interpreted by me shows potentially slightly worsening left basilar infiltrate and/or atelectasis. Patient continues to be encouraged to increase his use of the incentive spirometer. Labs are significant for WBC 13.2, hemoglobin 9.5, platelet count 122,000, sodium 135, BUN 8, creatinine 0.66, glucose 110, and T. bili 2.1. Patient remains on bronchodilators and heparin for DVT prophylaxis. Patient remains on amiodarone and Lopressor. Insulin drip discontinued this morning and sliding scale started. Normal saline at KVO 20 mL per hour. Will receive one- time dose of Lasix 20 mg per surgery. The patient was seen today June 19, 2024 in follow-up in the intensive care unit. He is awake and alert and in no acute distress, sitting up in the chair at bedside. Continues to maintain O2 saturation in the mid to upper 90s on room air. Postoperative day #3. Left pleural mediastinal chest tubes remain in place without signs of infection, will be removed today by surgery. Chest x-ray shows opacities in the left lung have decreased in the interval and there is improved aeration at the left lung base. There has been development of small focal opacity in the right upper lung zone possibly focal atelectasis. Patient continues to be encouraged to increase use of incentive spirometer. Continues on sliding scale. KVO NS 20ml,hr. Recieved one time dose of Lasix 20mg yesterday and patient continues to have good urine output. Per surgery will start ARB once BP allows today. Physical exam: GENERAL EXAM: Awake, alert 49-year-old male, up in a chair, on 2 L nasal cannula, fairly comfortable in no apparent distress. HEAD: Normocephalic. EYES: Normal reaction of pupils, equal size. NOSE: Clear with pink turbinates. THROAT: No erythema or exudates. NECK: No masses, no JVD. CHEST: Sternal dressing dry and intact. Mediastinal and left chest tubes in place. Pacer wires in place. LUNGS: Equal air entry with no crackles, wheeze, rhonchi or dullness. CVS: S1 and S2 normal with no audible murmur, regular rhythm. ABDOMEN: No hepatosplenomegaly, no guarding or rigidity. SPINE: No scoliosis or deformity SKIN: No rashes CENTRAL NERVOUS SYSTEM: Sedated, tone is normal in all 4 extremities. EXTREMITIES: Left upper extremity with a WILDER drain, Favian wrap in place. Bilateral lower extremity Favian wraps in place. Peripheral pulses are intact. Assessment: Coronary artery disease s/p coronary artery bypass grafting utilizing a TEJADA to the LAD, left radial artery from the aorta to the third obtuse marginal artery. Exclusion of left atrial appendage. Postoperative day #2 Mechanical ventilation management, expected outcome of surgery. Recovered and on 2 L nasal cannula Chronic and ongoing tobacco dependence Chronic daily alcohol use 1 pint daily Chronic daily marijuana use Hyperlipidemia Hypertension Family history of premature coronary artery disease Plan: The patient was seen and evaluated Chest x-ray, labs and medications reviewed On insulin sliding scale ([facility]), no long-acting Received one-time dose of Lasix 20 mg yesterday Per surgery patient will receive an ARB if BP allows Likely downgrade to 3 S. today Continue bronchodilators every 4 hours OxyIR as needed for pain Encouraged the increased use of the incentive spirometer Heparin for DVT prophylaxis We will continue to follow I have personally seen and examined the patient, performed the documentation and the assessment and plan as written. Number of minutes spent on the visit: 10 Dictation was produced using [employer] dictation software. Please excuse any grammatical, word or spelling errors. Objective - Vital Signs Vital signs: Vital Signs Temp 98.7 F 06/19/24 04:00 Pulse 89 06/19/24 04:00 Resp 17 06/19/24 04:00 BP 107/77 06/19/24 04:00 Pulse Ox 95 06/19/24 04:00 FiO2 40 06/16/24 16:45 Intake & Output 06/18/24 06/19/24 06/19/24 18:59 06:59 18:59 Intake Total 697 Output Total 1045 830 Balance -348 -830 Weight 97.2 kg Intake: IV 57 [place] and CVP 27 Sodium Chloride 0.9% 1, 30 000 ml @ 20 mls/hr IV . Q24H NAVI Rx#:[id number] Intake, IV Titration 160 Amount Sodium Chloride 0.9% 1, 160 000 ml @ 20 mls/hr IV . Q24H NAVI Rx#:[id number] Oral 480 Output: Chest Tube Drainage 90 30 Left Pleural 90 30 Right Pleural/Mediastinal 0 Urine 955 800 Other: Voiding Method Indwelling Catheter Toilet Urinal # Voids 1 ABP, PAP, CO, CI - Last Documented Arterial Blood Pressure 31/27 Pulmonary Artery Pressure 28/20 Cardiac Output 5.2 Cardiac Index 2.6 - Labs CBC & Chem 7: 06/19/24 04:18 06/19/24 04:18 Labs: Abnormal Lab Results - Last 24 Hours (Table) 06/18/24 06/18/24 06/18/24 Range/Units 08:16 10:53 16:08 WBC (3.8-10.6) k/uL RBC (4.30-5.90) m/uL Hgb (13.0-17.5) gm/dL Hct (39.0-53.0) % Neutrophils # (1.3-7.7) k/uL Sodium (137-145) mmol/L Chloride (98-107) mmol/L Glucose (74-99) mg/dL POC Glucose (mg/dL) 116 H 143 H 115 H (70-110) mg/dL Total Bilirubin (0.2-1.3) mg/dL Total Protein (6.3-8.2) g/dL 06/18/24 06/19/24 06/19/24 Range/Units 21:52 04:18 04:18 WBC 10.9 H (3.8-10.6) k/uL RBC 2.97 L (4.30-5.90) m/uL Hgb 9.7 L (13.0-17.5) gm/dL Hct 28.3 L (39.0-53.0) % Neutrophils # 7.9 H (1.3-7.7) k/uL Sodium 134 L (137-145) mmol/L Chloride 97 L (98-107) mmol/L Glucose 117 H (74-99) mg/dL POC Glucose (mg/dL) 150 H (70-110) mg/dL Total Bilirubin 2.1 H (0.2-1.3) mg/dL Total Protein 5.7 L (6.3-8.2) g/dL
[2024-06-19 11:25] LABS: Glucose,Whole Blood 197 mg/dL (70-110)
--- NOTE | 2024-06-19 12:55 | P.PN ---
Subjective Progress Note Date: 06/19/24 Hospital Course: Patient is a 49-year-old male with past medical history of tobacco use disorder, hyperlipidemia, with no use, marijuana use, CAD s/p heart cath March 2024-Calcified left anterior descending coronary artery with chronic total occlusion with collaterals from the right coronary system, chronically occluded right to's marginal as well as critical stenosis in the first acute marginal coronary artery, mild disease, positive family history of premature CAD, who presented for elective CABG that was performed on 06/16/2024, TEJADA to LAD bypass, left radial to OM 3 bypass, transferred to ICU IM Consulted for medical management. patient was extubated on 06/16, currently satting well on nasal cannula, no pressor support. Sitting in the recliner, complaining of postop pain, diffi culties taking deep breath in. Insulin drip discontinued, started on SSI. Feeling better today, pain is under fair control Pertinent positives and negatives as discussed above, a complete review of systems was performed and all other systems are negative. Vitals Signs Reviewed. General: nontoxic, no distress, appears at stated age Derm: warm, dry Head: atraumatic, normocephalic, symmetric Eyes: EOMI, no lid lag, anicteric sclera, pupils equal round reactive to light ENT: Nose and ears atraumatic Neck: No thyromegaly, supple Mouth: no lip lesion, mucus membranes moist Cardiovascular: S1S2 reg, no murmur, no edema, dressing dry, clean, left chest tube in place Lungs: clear to auscultation bilateral, no rhonchi, no rales, no wheeze, no accessory muscle use Abdominal: soft, nontender to palpation, no guarding, no appreciable organomegaly Ext: no gross muscle atrophy, muscle strength muscle strength 5 out of 5 in all 4 extremities, no contractures Neuro: CN II-XII grossly intact Psych: Alert, oriented, appropriate affect Lab work reviewed: Leukocytosis improving 10.9, hemoglobin stable 9.7, platelet count normal, sodium 134, creatinine normal, Chest x-ray with mild improvement in the left lung base Assessment and Plan: CAD s/p TEJADA to LAD bypass 06/16/2024 Acute postop blood loss anemia Thrombocytopenia Leukocytosis, reactive Hypertension Hyperlipidemia Tobacco use disorder, quit 05/26/24 Atenolol abuse, last drink 05/26/24 Family history of premature CAD Acute postop hypoxic respiratory failure -Cardiology, cardiothoracic surgery, neurology following -Extubated 06/16 -Insulin drip discontinued, continue with Accu-Cheks, SSI -Aspirin 325, atorvastatin 40 daily, Plavix 75 -Metoprolol 12.5 twice daily -Amiodarone 400 twice daily for A-fib prophylaxis -Protonix 40 daily -Monitor CBC, BMP, magnesium, -Continue thiamine and folic acid, last drink 05/26/24 -Patient was extubated 02/14, currently on nasal cannula, wean off as tolerated -PT OT, incentive spirometry -Martinez is out, pericardial tubes are, left chest tube in place - patient stable for [facility] to [facility]. Objective - Vital Signs Vital signs: Vital Signs Temp 98.3 F 06/19/24 08:00 Pulse 94 06/19/24 09:17 Resp 18 06/19/24 08:00 BP 111/82 06/19/24 08:00 Pulse Ox 94 L 06/19/24 08:00 FiO2 40 06/16/24 16:45 Intake & Output 06/18/24 06/19/24 06/19/24 18:59 06:59 18:59 Intake Total 697 120 Output Total 4612 104 2664 Balance -348 -020 -7990 Weight 97.2 kg Intake: IV 57 [place] and CVP 27 Sodium Chloride 0.9% 1, 30 000 ml @ 20 mls/hr IV . Q24H NAVI Rx#:[id number] Intake, IV Titration 160 Amount Sodium Chloride 0.9% 1, 160 000 ml @ 20 mls/hr IV . Q24H NAVI Rx#:[id number] Oral 480 120 Output: Chest Tube Drainage 90 30 Left Pleural 90 30 Right Pleural/Mediastinal 0 Urine 908 000 7332 Other: Voiding Method Indwelling Catheter Toilet Toilet Urinal # Voids 1 ABP, PAP, CO, CI - Last Documented Arterial Blood Pressure 31/27 Pulmonary Artery Pressure 28/20 Cardiac Output 5.2 Cardiac Index 2.6 - Labs CBC & Chem 7: 06/19/24 04:18 06/19/24 04:18 Labs: Abnormal Lab Results - Last 24 Hours (Table) 06/18/24 06/18/24 06/19/24 Range/Units 16:08 21:52 04:18 WBC 10.9 H (3.8-10.6) k/uL RBC 2.97 L (4.30-5.90) m/uL Hgb 9.7 L (13.0-17.5) gm/dL Hct 28.3 L (39.0-53.0) % Neutrophils # 7.9 H (1.3-7.7) k/uL Sodium (137-145) mmol/L Chloride (98-107) mmol/L Glucose (74-99) mg/dL POC Glucose (mg/dL) 115 H 150 H (70-110) mg/dL Total Bilirubin (0.2-1.3) mg/dL Total Protein (6.3-8.2) g/dL 06/19/24 06/19/24 Range/Units 04:18 11:23 WBC (3.8-10.6) k/uL RBC (4.30-5.90) m/uL Hgb (13.0-17.5) gm/dL Hct (39.0-53.0) % Neutrophils # (1.3-7.7) k/uL Sodium 134 L (137-145) mmol/L Chloride 97 L (98-107) mmol/L Glucose 117 H (74-99) mg/dL POC Glucose (mg/dL) 197 H (70-110) mg/dL Total Bilirubin 2.1 H (0.2-1.3) mg/dL Total Protein 5.7 L (6.3-8.2) g/dL
[2024-06-19 16:20] LABS: Glucose,Whole Blood 125 mg/dL (70-110)
[2024-06-19] MEDS: POTASSIUM CHLORIDE ER 20 MEQ TAB.ER PO ONE (16:40)
[2024-06-19] MEDS: ALBUMIN HUMAN 25% 50 ML IV ONE (19:00)
[2024-06-19] MEDS: ALBUMIN HUMAN 5% 500 ML IVPB ONE (19:01)
[2024-06-19] MEDS: CALCIUM CHLORIDE 100 MG/ML 10 ML SYRINGE IV ONE (19:01)
[2024-06-19] MEDS: ATORVASTATIN 10 MG TAB PO ONE (19:01)
[2024-06-19] MEDS: ASPIRIN 325 MG TAB PO ONE (19:01)
[2024-06-19] MEDS: CLEVIDIPINE BUTYRATE 25 MG in EMPTY BAG 1 BAG IV ONE (19:02)
[2024-06-19] MEDS: ceFAZolin 1,000 MG in SODIUM CHLORIDE 0.9% IRRIGATIO 1,000 ML IRRIGATION ONE (19:02)
[2024-06-19] MEDS: ELECTROLYTE-A SOLUTION 1,000 ML with POTASSIUM CHLORIDE 100 MEQ, MAGNESIUM SULFATE 16 M... IV ONE (19:02)
[2024-06-19] MEDS: HEPARIN SODIUM,PORCINE (1 ML) 5,000 UNIT in SODIUM CHLORIDE 0.9% 500 ML 500 ML IV ONE (19:02)
[2024-06-19] MEDS: CHLORHEXIDINE GLUCONATE 15 ML CUP MUCOUS MEM ONE (19:02)
[2024-06-19] MEDS: HEPARIN SODIUM 1,000 UN/ML (10ML VL) IV ONE (19:02)
[2024-06-19] MEDS: DILTIAZEM 125 MG in SODIUM CHLORIDE 0.9% 100 ML IV ONE (19:03)
[2024-06-19] MEDS: ELECTROLYTE-A SOLUTION 1,000 ML with POTASSIUM CHLORIDE 40 MEQ, MAGNESIUM SULFATE 16 ME... IV ONE (19:03)
[2024-06-19] MEDS: MANNITOL 25% 12.5 GM/50 ML VIAL IV ONE (19:04)
[2024-06-19] MEDS: MAGNESIUM SULFATE 16.24 MEQ in EMPTY SYRINGE 1 SYR IV ONE (19:04)
[2024-06-19] MEDS: INSULIN REGULAR 100 UNIT in SODIUM CHLORIDE 0.9% 100 ML IV ONE (19:04)
[2024-06-19] MEDS: SODIUM BICARB 8.4% 50 ML SYR (1 MEQ/ML) IV ONE (19:04)
[2024-06-19] MEDS: PROTAMINE SULFATE 250 MG in EMPTY BAG 1 BAG IV ONE (19:04)
[2024-06-19] MEDS: PAPAVERINE 360 MG in SODIUM CHLORIDE 0.9% 90 ML IV ONE (19:05)
[2024-06-19] MEDS: PROTAMINE SULFATE 10 MG/ML 25 ML VIAL IV ONE (19:05)
[2024-06-19] MEDS: NITROGLYCERIN-D5W PMX 50 MG in DEXTROSE/WATER 1 250ML.BAG IV ONE (19:05)
[2024-06-19] MEDS: NITROGLYCERIN-D5W PMX 25 MG/250 ML BTL IV ONE (19:05)
[2024-06-19] MEDS: NOREPINEPHRINE 4 MG in SODIUM CHLORIDE 0.9% 250 ML IV ONE (19:05)
[2024-06-19] MEDS: PHENYLEPHRINE 10 MG/ML VIAL IV ONE (19:05)
[2024-06-19] MEDS: PHENYLEPHRINE 40 MG in SODIUM CHLORIDE 0.9% 250 ML IV ONE (19:06)
[2024-06-19] MEDS: TRANEXAMIC ACID 2,000 MG in SODIUM CHLORIDE 0.9% 80 ML IV ONE (19:06)
[2024-06-19] MEDS: MUPIROCIN 2% OINT 22 GM TUBE NASAL ONE (19:06)
[2024-06-19] MEDS: propofoL 1,000 MG/100 ML VIAL IV ONE (19:06)
[2024-06-19] MEDS: SODIUM CHLORIDE 0.9% 1,000 ML IV ONE (19:06)
[2024-06-19 20:12] LABS: Glucose,Whole Blood 144 mg/dL (70-110)
--- NOTE | 2024-06-19 21:34 | PN ---
PROGRESS NOTE SUBJECTIVE: Vini is a 49-year-old gentleman with CAD, status post CABG, postop day #3. He is feeling better other than the musculoskeletal pain related to recent surgery. CURRENT MEDICATIONS: Include: 1. Cordarone. 2. Aspirin. 3. Lipitor. 4. Plavix. 5. Lopressor. PHYSICAL EXAMINATION: GENERAL: Comfortable at rest. VITAL SIGNS: Stable. CHEST: Reveals good air entry bilaterally. HEART: Reveals first and second heart sounds. No gallop. EXTREMITIES: Did not reveal any edema. Peripheral pulses are felt. ASSESSMENT AND PLAN: Coronary artery disease, status post coronary artery bypass graft. The chest tubes are going to come out today. The patient is doing well. Continue medications. Increase his activity. Continue incentive spirometry. MMODL / IJN: [id number] /
[2024-06-20 06:18] LABS: Glucose,Whole Blood 123 mg/dL (70-110)
[2024-06-20 06:38] LABS: HCT 29.6 % (39.0-53.0); HGB 10.1 gm/dL (13.0-17.5); MCH 32.2 pg (25.0-35.0); MCHC 34.1 g/dL (31.0-37.0); MCV 94.5 fL (80.0-100.0); Mean Platelet Volume 8.4; Platelet Count 242 k/uL (150-450); RBC 3.13 m/uL (4.30-5.90); RDW 12.9 % (11.5-15.5); WBC 9.1 k/uL (3.8-10.6)
[2024-06-20 06:51] LABS: African American GFR (CKD) >90 (>60 ml/min/1.73 sqM); Anion Gap 10 mmol/L; Blood Urea Nitrogen 7 mg/dL (9-20); Calcium 9.2 mg/dL (8.4-10.2); Carbon Dioxide 30 mmol/L (22-30); Chloride 96 mmol/L (98-107); Glucose 114 mg/dL (74-99); Magnesium 1.9 mg/dL (1.6-2.3); Non-African American GFR(CKD) >90 (>60 ml/min/1.73 sqM); Potassium 3.6 mmol/L (3.5-5.1); Sodium 136 mmol/L (137-145)
--- NOTE | 2024-06-20 07:17 | XR ---
Chest, 2 view. HISTORY: Postcardiac surgery. COMPARISON: 06/19/2024 TECHNIQUE: PA and lateral views the chest are obtained. FINDINGS: There has been interval removal of the left chest tube. There is minimal stable bandlike opacities in the left lung most likely reflecting mild bands of atel ectasis. Similar bandlike opacity stable in the right upper lobe. Postsurgical changes of CABG surgery. Stable small bilateral pleural effusions. There is no pulmonary vascular congestion or interstitial edema. IMPRESSION: 1. Interval removal left chest tube and is no pneumothorax. 2. stable small bilateral pleural effusions and focal areas of atelectasis [facility], , 06/20/2024 7:15 AM
--- NOTE | 2024-06-20 07:54 | P.PN ---
Subjective Progress Note Date: 06/20/24 Principal diagnosis: Double vessel diffuse coronary artery disease with totally occluded left anterior descending artery, preserved left ventricular function. History of hyperlipidemia, hypertension, chronic tobacco dependance with cessation 05/26/24, EtOH abuse with cessation 05/26/24, daily marijuana use, and family history of premature coronary artery disease in his father POD #4 total arterial double coronary artery bypass grafting using the in situ left intramammary artery to the left anterior descending artery, the left radial artery from the aorta to the third obtuse marginal artery, exclusion of the left atrial appendage using a 35mm AtriClip, endoscopic harvesting of the left radial artery, intraoperative Graft flow measurements using the NVMdurancestim system, intraoperative transesophageal echocardiogram and epiaortic scanning Postoperative acute blood loss anemia, expected given hemodilution and cardiopulmonary bypass pump The patient was seen and examined this morning sitting up in recliner on the cardiac stepdown unit in no acute distress. Remains in sinus rhythm, hemodynamically stable. States pain is mostly controlled on current medication regimen, denies shortness of breath. He has been ambulatory in the hallway multiple times with standby assist. His only real complaint is of a sore butt. Chest x-ray, lab work reviewed. No other new concerns. Objective - Vital Signs Vital signs: Vital Signs Temp 98.1 F 06/19/24 20:00 Pulse 85 06/20/24 03:50 Resp 20 06/20/24 03:50 BP 115/71 06/20/24 03:50 Pulse Ox 96 06/20/24 03:50 FiO2 40 06/16/24 16:45 Intake & Output 06/19/24 06/20/24 06/20/24 18:59 06:59 18:59 Intake Total 240 540 Output Total 1600 800 Balance -1360 -260 Intake: Oral 240 540 Output: Urine 1600 800 Other: Voiding Method Toilet Toilet ABP, PAP, CO, CI - Last Documented Arterial Blood Pressure 31/27 Pulmonary Artery Pressure 28/20 Cardiac Output 5.2 Cardiac Index 2.6 - Exam CONSTITUTIONAL: Appears comfortable, cooperative, no acute distress RESPIRATORY: Lungs sounds diminished in the bases bilaterally. Respirations even, nonlabored. Currently on room air with oxygen saturation 96%. Able to achieve 1000 mL on incentive spirometry. Strong cough. CARDIOVASCULAR: S1, S2 present. Regular rate and rhythm, sinus rhythm on telemetry. Sternum stable. Palpable peripheral pulses bilaterally. Trace bilateral lower extremity edema present. No calf pain or tenderness noted. Heart hugger in place with patient demonstrating appropriate use. Antiembolism stockings, SCDs present. GASTROINTESTINAL: Abdomen soft, nontender, nondistended. Active bowel sounds present 4 quadrants. Tolerating diet. Positive flatus GENITOURINARY: Continues to void. Output 2400 mL in the last 24 hours INTEGUMENTARY: Skin is warm and dry with evidence of good perfusion. Anterior chest incision well approximated and covered with dry intact dressing. Left radial artery site well approximated without redness or drainage. NEUROLOGIC: Cranial nerves II through XII intact MUSKULOSKELETAL: Able to move all extremities, strength equal bilaterally, gait normal PSYCHIATRIC: Alert and oriented to person place and time, appropriate affect, intact judgment and insight - Allied health notes Allied health notes reviewed: nursing - Labs CBC & Chem 7: 06/20/24 06:18 06/20/24 06:18 Labs: Abnormal Lab Results - Last 24 Hours (Table) 06/19/24 06/19/24 06/19/24 Range/Units 11:23 16:19 20:11 RBC (4.30-5.90) m/uL Hgb (13.0-17.5) gm/dL Hct (39.0-53.0) % Sodium (137-145) mmol/L Chloride (98-107) mmol/L BUN (9-20) mg/dL Glucose (74-99) mg/dL POC Glucose (mg/dL) 197 H 125 H 144 H (70-110) mg/dL 06/20/24 06/20/24 06/20/24 Range/Units 06:16 06:18 06:18 RBC 3.13 L (4.30-5.90) m/uL Hgb 10.1 L (13.0-17.5) gm/dL Hct 29.6 L (39.0-53.0) % Sodium 136 L (137-145) mmol/L Chloride 96 L (98-107) mmol/L BUN 7 L (9-20) mg/dL Glucose 114 H (74-99) mg/dL POC Glucose (mg/dL) 123 H (70-110) mg/dL - Imaging and Cardiology Chest x-ray: report reviewed, image reviewed Assessment and Plan Assessment: Double vessel diffuse coronary artery disease with totally occluded left anterior descending artery, status post two-vessel CABG Preserved left ventricular function Postoperative acute blood loss anemia, expected given hemodilution and cardiopulmonary bypass pump History of hyperlipidemia, cholesterol 153, calculated LDL 46.4, triglycerides 287 Hypertension Chronic tobacco dependance with cessation 05/26/24 Mild obstructive lung disease, preoperative FEV1 70% of predicted EtOH abuse with cessation 05/26/24 Daily marijuana use Family history of premature coronary artery disease in his father Plan: Continue to maximize medical therapy with aspirin, statin, Plavix, and beta- frank therapy. Will increase beta-frank therapy as tolerated, increased to 25 mg twice daily yesterday Continue amiodarone 400 mg p.o. twice daily for atrial fibrillation prophylaxis, no atrial fibrillation reported to date, currently in normal sinus rhythm. Encourage incentive spirometry use 10 times every hour while awake. Bronchodilators per pulmonology Will monitor daily labs and chest x-rays, electrolyte replacement per protocol. Will give 20 mg IV push Lasix today Increase activity, ambulate as tolerated. PT/OT/cardiac rehab following GI/DVT prophylaxis Insulin management per internal medicine, patient is not diabetic, preoperative hemoglobin A1c 5.6% Pain control per current medication regimen Continue to monitor and record strict accurate intake and output. Daily weights Shower daily starting today Discharge planning in progress, anticipate discharge to home with home care on Friday More recommendations to follow based on patient's clinical course
[2024-06-20] MEDS: POTASSIUM CHLORIDE ER 20 MEQ TAB.ER PO STA (08:26)
[2024-06-20] MEDS: MAGNESIUM SULFATE-D5W PMX 1 GM in DEXTROSE/WATER 1 100ML.BAG IVPB ONE (08:27)
[2024-06-20] MEDS: FUROSEMIDE 10 MG/ML 2 ML VIAL IV ONE (08:28)
--- NOTE | 2024-06-20 10:46 | P.PN ---
Subjective HISTORY OF PRESENT ILLNESS: This is a 49-year-old male who follows in the office with Dr. Majano. Patient is status post two-vessel CABG. Patient examined this morning. Patient is sitting up in the chair. Patient currently denies chest pain or pressure. He denies shortness of breath. He reports mild surgical tenderness that is relieved with oral medications. He has been ambulating up in the hallway. Telemetry reveals sinus mechanism. Vital signs are stable. PHYSICAL EXAM: VITAL SIGNS: Reviewed. GENERAL: Well-developed in no acute distress. NECK: Supple. No JVD or thyromegaly LUNGS: Respirations even and unlabored. Lungs essentially clear to auscultation bilaterally. HEART: Regular rate and rhythm. S1 and S2 heard. EXTREMITIES: Normal range of motion. No clubbing or cyanosis. Peripheral pulses intact. No lower extremity edema ASSESSMENT: Coronary artery disease, status post two-vessel CABG Hypertension Hyperlipidemia Nicotine dependence with recent sensation History of alcohol abuse Daily marijuana use PLAN: Continue postoperative management per CT surgery Encourage use of incentive spirometer Increase activity as tolerated Continue current cardiac medications Continue telemetry monitoring Anticipate discharge home tomorrow if patient remains stable Further recommendations pending patient course Nurse practitioner note has been reviewed by physician. Signing provider agrees with the documented findings, assessment, and plan of care documented by [employer] as a scribe. Objective - Vital Signs Vital signs: Vital Signs Temp 97.5 F L 06/20/24 08:00 Pulse 90 06/20/24 08:32 Resp 20 06/20/24 08:00 BP 110/64 06/20/24 08:00 Pulse Ox 96 06/20/24 08:25 FiO2 40 06/16/24 16:45 Intake & Output 06/19/24 06/20/24 06/20/24 18:59 06:59 18:59 Intake Total 240 540 340 Output Total 1600 800 650 Balance -1360 -260 -310 Weight 96.8 kg Intake: IV 100 Magnesium Sulfate-D5w Pmx 100 1 gm In Dextrose/Water 1 100ml.bag @ 100 mls/hr IVPB ONCE ONE Rx#: [id number] Oral 240 540 240 Output: Urine 1600 800 650 Other: Voiding Method Toilet Toilet Urinal ABP, PAP, CO, CI - Last Documented Arterial Blood Pressure 31/27 Pulmonary Artery Pressure 28/20 Cardiac Output 5.2 Cardiac Index 2.6 - Labs CBC & Chem 7: 06/20/24 06:18 06/20/24 06:18 Labs: Abnormal Lab Results - Last 24 Hours (Table) 06/19/24 06/19/24 06/19/24 Range/Units 11:23 16:19 20:11 RBC (4.30-5.90) m/uL Hgb (13.0-17.5) gm/dL Hct (39.0-53.0) % Sodium (137-145) mmol/L Chloride (98-107) mmol/L BUN (9-20) mg/dL Glucose (74-99) mg/dL POC Glucose (mg/dL) 197 H 125 H 144 H (70-110) mg/dL 06/20/24 06/20/24 06/20/24 Range/Units 06:16 06:18 06:18 RBC 3.13 L (4.30-5.90) m/uL Hgb 10.1 L (13.0-17.5) gm/dL Hct 29.6 L (39.0-53.0) % Sodium 136 L (137-145) mmol/L Chloride 96 L (98-107) mmol/L BUN 7 L (9-20) mg/dL Glucose 114 H (74-99) mg/dL POC Glucose (mg/dL) 123 H (70-110) mg/dL
[2024-06-20 11:19] LABS: Glucose,Whole Blood 161 mg/dL (70-110)
[2024-06-20] MEDS ORDERED: LOSARTAN 25 MG TAB PO SCH (12:00)
--- NOTE | 2024-06-20 12:10 | P.PN ---
Subjective Progress Note Date: 06/20/24 Hospital Course: Hospital Course: Patient is a 49-year-old male with past medical history of tobacco use disorder, hyperlipidemia, with no use, marijuana use, CAD s/p heart cath March 2024-Calcified left anterior descending coronary artery with chronic total occlusion with collaterals from the right coronary system, chronically occluded right to's marginal as well as critical stenosis in the first acute marginal coronary artery, mild disease, positive family history of premature CAD, who presented for elective CABG that was performed on 06/16/2024, TEJADA to LAD bypass, left radial to OM 3 bypass, transferred to ICU IM Consulted for medical management. patient was extubated on 06/16, currently satting well on nasal cannula, no pressor support. Sitting in the recliner, complaining of postop pain, difficulties taking deep breath in. Insulin drip discontinued, started on SSI. Feeling better today, pain is under fair control, appetite is coming back Pertinent positives and negatives as discussed above, a complete review of systems was performed and all other systems are negative. Vitals Signs Reviewed. General: nontoxic, no distress, appears at stated age Derm: warm, dry Head: atraumatic, normocephalic, symmetric Eyes: EOMI, no lid lag, anicteric sclera, pupils equal round reactive to light ENT: Nose and ears atraumatic Neck: No thyromegaly, supple Mouth: no lip lesion, mucus membranes moist Cardiovascular: S1S2 reg, no murmur, no edema, dressing dry, clean, left chest tube in place Lungs: clear to auscultation bilateral, no rhonchi, no rales, no wheeze, no accessory muscle use Abdominal: soft, nontender to palpation, no guarding, no appreciable organomegaly Ext: no gross muscle atrophy, muscle strength muscle strength 5 out of 5 in all 4 extremities, no contractures Neuro: CN II-XII grossly intact Psych: Alert, oriented, appropriate affect Lab work reviewed: Hemoglobin stable 10.1, no leukocytosis, platelet count normal, sodium 136, potassium 3.6, creatinine normal, blood sugars are controlled Chest x-ray stable bilateral pleural effusions, focal areas of atelectasis Assessment and Plan: CAD s/p TEJADA to LAD bypass 06/16/2024 Acute postop blood loss anemia improving Thrombocytopenia, resolved Leukocytosis, reactive Hypertension Hyperlipidemia Tobacco use disorder, quit 05/26/24 Atenolol abuse, last drink 05/26/24 Family history of premature CAD Acute postop hypoxic respiratory failure -Cardiology, cardiothoracic surgery, neurology following -Extubated 06/16 -Insulin drip discontinued, continue with Accu-Cheks, SSI -Aspirin 325, atorvastatin 40 daily, Plavix 75 -Metoprolol 12.5 twice daily -Amiodarone 400 twice daily for A-fib prophylaxis -Protonix 40 daily -Monitor CBC, BMP, magnesium, -Continue thiamine and folic acid, last drink 05/26/24 -Patient was extubated 02/14, currently on nasal cannula, wean off as tolerated -PT OT, incentive spirometry -Martinez is out, pericardial tubes are, left chest tube out, -Now on 3 S. Objective - Vital Signs Vital signs: Vital Signs Temp 98 F 06/20/24 11:30 Pulse 82 06/20/24 11:35 Resp 20 06/20/24 11:30 BP 89/56 06/20/24 11:30 Pulse Ox 98 06/20/24 11:30 FiO2 40 06/16/24 16:45 Intake & Output 06/19/24 06/20/24 06/20/24 18:59 06:59 18:59 Intake Total 240 540 340 Output Total 6932 466 6261 Balance -1360 -260 -860 Weight 96.8 kg Intake: IV 100 Magnesium Sulfate-D5w Pmx 100 1 gm In Dextrose/Water 1 100ml.bag @ 100 mls/hr IVPB ONCE ONE Rx#: [id number] Oral 240 540 240 Output: Urine 1337 [id number] [id number] Other: Voiding Method Toilet Toilet Urinal ABP, PAP, CO, CI - Last Documented Arterial Blood Pressure Pulmonary Artery Pressure Cardiac Output 5.2 Cardiac Index 2.6 - Labs CBC & Chem 7: 06/20/24 06:18 06/20/24 06:18 Labs: Abnormal Lab Results - Last 24 Hours (Table) 06/19/24 06/19/24 06/20/24 Range/Units 16:19 20:11 06:16 RBC (4.30-5.90) m/uL Hgb (13.0-17.5) gm/dL Hct (39.0-53.0) % Sodium (137-145) mmol/L Chloride (98-107) mmol/L BUN (9-20) mg/dL Glucose (74-99) mg/dL POC Glucose (mg/dL) 125 H 144 H 123 H (70-110) mg/dL 06/20/24 06/20/24 06/20/24 Range/Units 06:18 06:18 11:18 RBC 3.13 L (4.30-5.90) m/uL Hgb 10.1 L (13.0-17.5) gm/dL Hct 29.6 L (39.0-53.0) % Sodium 136 L (137-145) mmol/L Chloride 96 L (98-107) mmol/L BUN 7 L (9-20) mg/dL Glucose 114 H (74-99) mg/dL POC Glucose (mg/dL) 161 H (70-110) mg/dL
--- NOTE | 2024-06-20 12:10 | P.PN ---
Subjective Progress Note Date: 06/20/24 Principal diagnosis: Coronary disease. This is a 49-year-old male patient with a known history of chronic and ongoing tobacco dependence, chronic daily alcohol use including 1 pint daily, marijuana use hyperlipidemia who had undergone cardiac catheterization in March 2024 for ongoing chest pain. He was found to have a calcified left anterior descending artery, chronic total occlusion and collaterals from the right coronary system, chronically occluded third obtuse marginal branch as well as critical stenosis in the first obtuse marginal coronary artery and mild disease in the right coronary artery. He was recommended surgical revascularization. He was brought in today electively for the surgery. A double coronary artery bypass grafting utilizing the TEJADA to the LAD and the left radial artery from the aorta to the third obtuse marginal artery. Exclusion of left atrial appendage. He is today postoperatively in the intensive care unit. He is currently intubated on the mechanical ventilator and assist-control mode at a rate of 14, tidal volume 450, FiO2 100% and a PEEP of 10. Follow-up blood gases revealed a PaO2 of 405. pCO2 of 47 and a pH of 7.33. FiO2 was decreased to 60%. Cardiac output 5.2. Cardiac index 2.6. CVP 17. The [place] catheter w as inadvertently removed as it was coiled in the right ventricle. He is continued on propofol at 40 mcg/kg/min. Nitroglycerin at 5 mg/min. Insulin drip at 0.5 units/h. Normal saline at 40 mL/h. He has a mediastinal and left pleural chest tubes in place. Pacer wires in place. Favian wrap to the right upper forearm. Favian wraps to the bilateral lower extremities. Chest x-ray reveals endotracheal and nasogastric tubes in place. Left thoracotomy in place without evidence of pneumothorax. Chest tube in the mediastinum. White count 17.4. Hemoglobin 11.8. Platelets 146. INR 1.1. Sodium 137. Potassium 4.0. Bicarb 24. BUN 9. Creatinine 0.64. Glucose 124. Magnesium 2.5. He has been initiated on DuoNeb inhalations. Heparin for DVT prophylaxis The patient was seen today June 17, 2024 in follow-up in the intensive care unit. He is awake and alert in no acute distress. Sitting up in a chair at the bedside. Maintaining O2 saturations in the 90s on 2 L/min per nasal cannula. Postoperative day #1. Left pleural and mediastinal chest tubes remain in place. Chest x-ray reveals persistent cardiomegaly with slight worsening central vascular congestion and developing left basilar infiltrate and/or atelectasis. He is encouraged regarding the increased use of the incentive spirometer. White count 16.2. Hemoglobin 11.1. Platelets 156. Sodium 137. Potassium 3.6. Bicarb 23. BUN 9. Creatinine 0.62. Glucose 109. AST 42. ALT 16. He remains on bronchodilators. Heparin for DVT prophylaxis. Currently on amiodarone and Lopressor. Insulin drip at 2 units/h. Normal saline at 50 mL/h. The patient was seen today June 18, 2024 and follow-up in the intensive care unit. He is awake and alert and in no acute distress. Sitting up in the chair at bedside. Maintaining O2 saturations in the mid to upper 90s on 2L per nasal cannula. Postoperative day #2. Left pleural and mediastinal chest tubes remain in place without signs of erythema or infection. Chest x-ray interpreted by me shows potentially slightly worsening left basilar infiltrate and/or atelectasis. Patient continues to be encouraged to increase his use of the incentive spirometer. Labs are significant for WBC 13.2, hemoglobin 9.5, platelet count 122,000, sodium 135, BUN 8, creatinine 0.66, glucose 110, and T. bili 2.1. Patient remains on bronchodilators and heparin for DVT prophylaxis. Patient remains on amiodarone and Lopressor. Insulin drip discontinued this morning and sliding scale started. Normal saline at KVO 20 mL per hour. Will receive one- time dose of Lasix 20 mg per surgery. The patient was seen today June 19, 2024 in follow-up in the intensive care unit. He is awake and alert and in no acute distress, sitting up in the chair at bedside. Continues to maintain O2 saturation in the mid to upper 90s on room air. Postoperative day #3. Left pleural mediastinal chest tubes remain in place without signs of infection, will be removed today by surgery. Chest x-ray shows opacities in the left lung have decreased in the interval and there is improved aeration at the left lung base. There has been development of small focal opacity in the right upper lung zone possibly focal atelectasis. Patient continues to be encouraged to increase use of incentive spirometer. Continues on sliding scale. KVO NS 20ml,hr. Recieved one time dose of Lasix 20mg yesterday and patient continues to have good urine output. Per surgery will start ARB once BP allows today. Progress note dated June 20, 2023. This is a 49-year-old male who is postop day #4, status post bypass grafting. The patient is currently seen today in room 364. He is on room air. He is not receiving any IV fluids. He is doing well, and states that he feels well. He denies any shortness of breath, cough, wheezing, chest tightness, chest pain or pressure, palpitations, etc. Current laboratory data includes a white count of 9.1, hemoglobin 10.1, hematocrit 29.6, platelet count 242,000. Sodium 136, potassium 3.6, chloride 96, CO2 30, BUN 7, creatinine 0.78. Glucose is 161. Calcium 9.2. Magnesium 1.9. Chest x-ray shows interval removal of left-sided chest tube, without evidence of pneumothorax. There are some mild bibasilar atelectasis. Objective - Vital Signs Vital signs: Vital Signs Temp 98 F 06/20/24 11:30 Pulse 82 06/20/24 11:35 Resp 20 06/20/24 11:30 BP 89/56 06/20/24 11:30 Pulse Ox 98 06/20/24 11:30 FiO2 40 06/16/24 16:45 Intake & Output 06/19/24 06/20/24 06/20/24 18:59 06:59 18:59 Intake Total 240 540 340 Output Total 6294 500 6688 Balance -2830 260 -860 Weight 96.8 kg Intake: IV 100 Magnesium Sulfate-D5w Pmx 100 1 gm In Dextrose/Water 1 100ml.bag @ 100 mls/hr IVPB ONCE ONE Rx#: [id number] Oral 240 540 240 Output: Urine 5572 389 9916 Other: Voiding Method Toilet Toilet Urinal ABP, PAP, CO, CI - Last Documented Arterial Blood Pressure 31/27 Pulmonary Artery Pressure 28/20 Cardiac Output 5.2 Cardiac Index 2.6 - Exam No acute distress, oriented 3. Currently on room air. HEENT examination is grossly unremarkable. Mucous membranes are moist. No oral lesions. Neck supple. Full range of motion. No adenopathy thyromegaly or neck vein distention. Cardiovascular examination reveals regular rhythm rate. S1-S2 normal. No S3 or S4. No discernible murmur noted. Lungs reveal mostly clear breath sounds. Minimal rhonchi. No wheezes or crackles. Breath sounds equal. Abdomen soft bowel sounds are heard. No masses or tenderness. Extremities are intact. No cyanosis clubbing or edema. Skin is without rash or lesion. Neurologic examination is brief but nonfocal. - Labs CBC & Chem 7: 06/20/24 06:18 06/20/24 06:18 Labs: Abnormal Lab Results - Last 24 Hours (Table) 06/19/24 06/19/24 06/20/24 Range/Units 16:19 20:11 06:16 RBC (4.30-5.90) m/uL Hgb (13.0-17.5) gm/dL Hct (39.0-53.0) % Sodium (137-145) mmol/L Chloride (98-107) mmol/L BUN (9-20) mg/dL Glucose (74-99) mg/dL POC Glucose (mg/dL) 125 H 144 H 123 H (70-110) mg/dL 06/20/24 06/20/24 06/20/24 Range/Units 06:18 06:18 11:18 RBC 3.13 L (4.30-5.90) m/uL Hgb 10.1 L (13.0-17.5) gm/dL Hct 29.6 L (39.0-53.0) % Sodium 136 L (137-145) mmol/L Chloride 96 L (98-107) mmol/L BUN 7 L (9-20) mg/dL Glucose 114 H (74-99) mg/dL POC Glucose (mg/dL) 161 H (70-110) mg/dL Assessment and Plan Assessment: Postop day #4 status post two-vessel bypass surgery, progressing nicely. Routine postoperative ventilator management. Chronic and ongoing tobacco dependence. Chronic daily alcohol use. Chronic daily marijuana use. History of hyperlipidemia. History of hypertension. Family history of premature coronary disease. Plan: Plan dated June 20, 2024. The patient appears to be doing relatively well. He is currently seen today in room 364. The patient has no specific complaints. The patient is currently on room air. He is not receiving any IV fluids. Labs, x-rays, and medications are reviewed. We will continue to follow the patient, make recommendations. Prognosis is guarded. Time with Patient: Less than 30
[2024-06-20] MEDS: MAGNESIUM HYDROXIDE 2,400 MG/30 ML CUP PO PRN (12:21)
[2024-06-20 16:36] LABS: Glucose,Whole Blood 120 mg/dL (70-110)
[2024-06-20] MEDS: bisacodyL 10 MG SUPP RECTAL PRN (18:16)
[2024-06-20 20:07] LABS: Glucose,Whole Blood 133 mg/dL (70-110)
[2024-06-21 06:17] LABS: HCT 29.7 % (39.0-53.0); HGB 10.3 gm/dL (13.0-17.5); MCH 32.9 pg (25.0-35.0); MCHC 34.7 g/dL (31.0-37.0); MCV 94.6 fL (80.0-100.0); Mean Platelet Volume 8.1; Platelet Count 320 k/uL (150-450); RBC 3.14 m/uL (4.30-5.90); RDW 12.8 % (11.5-15.5); WBC 9.8 k/uL (3.8-10.6)
[2024-06-21 06:24] LABS: Glucose,Whole Blood 120 mg/dL (70-110)
[2024-06-21 06:37] LABS: African American GFR (CKD) >90 (>60 ml/min/1.73 sqM); Anion Gap 7 mmol/L; Blood Urea Nitrogen 8 mg/dL (9-20); Calcium 9.4 mg/dL (8.4-10.2); Carbon Dioxide 30 mmol/L (22-30); Chloride 98 mmol/L (98-107); Glucose 111 mg/dL (74-99); Magnesium 2.3 mg/dL (1.6-2.3); Non-African American GFR(CKD) >90 (>60 ml/min/1.73 sqM); Potassium 3.8 mmol/L (3.5-5.1); Sodium 135 mmol/L (137-145)
--- NOTE | 2024-06-21 07:24 | P.PN ---
Subjective Progress Note Date: 06/21/24 Principal diagnosis: Double vessel diffuse coronary artery disease with totally occluded left anterior descending artery, preserved left ventricular function. History of hyperlipidemia, hypertension, chronic tobacco dependance with cessation 05/26/24, EtOH abuse with cessation 05/26/24, daily marijuana use, and family history of premature coronary artery disease in his father POD #5 total arterial double coronary artery bypass grafting using the in situ left intramammary artery to the left anterior descending artery, the left radial artery from the aorta to the third obtuse marginal artery, exclusion of the left atrial appendage using a 35mm AtriClip, endoscopic harvesting of the left radial artery, intraoperative Graft flow measurements using the [employer] system, intraoperative transesophageal echocardiogram and epiaortic scanning Postoperative acute blood loss anemia, expected given hemodilution and cardiopulmonary bypass pump The patient was seen and examined this morning sitting up in recliner on the cardiac stepdown unit in no acute distress. Remains in sinus rhythm, hemodynamically stable. States pain is mostly controlled on current medication regimen, denies shortness of breath. He has been ambulatory in the hallway multiple times with standby assist, showered yesterday. Chest x-ray, lab work reviewed. Anticipates discharge to home this afternoon, states he feels ready. No other new concerns. Objective - Vital Signs Vital signs: Vital Signs Temp 97.0 F L 06/20/24 20:39 Pulse 78 06/21/24 04:30 Resp 18 06/21/24 04:30 BP 123/86 06/21/24 04:30 Pulse Ox 96 06/21/24 04:30 FiO2 40 06/16/24 16:45 Intake & Output 06/20/24 06/21/24 06/21/24 18:59 06:59 18:59 Intake Total 580 Output Total 1750 1200 Balance -1170 -1200 Weight 96.9 kg Intake: IV 100 Magnesium Sulfate-D5w Pmx 100 1 gm In Dextrose/Water 1 100ml.bag @ 100 mls/hr IVPB ONCE ONE Rx#: [id number] Oral 480 Output: Urine 1750 1200 Other: Voiding Method Urinal Toilet ABP, PAP, CO, CI - Last Documented Arterial Blood Pressure 31/27 Pulmonary Artery Pressure 28/20 Cardiac Output 5.2 Cardiac Index 2.6 - Exam CONSTITUTIONAL: Appears comfortable, cooperative, no acute distress RESPIRATORY: Lungs sounds diminished in the bases bilaterally. Respirations even, nonlabored. Currently on room air with oxygen saturation 96%. Able to achieve 1000 mL on incentive spirometry. Strong cough. CARDIOVASCULAR: S1, S2 present. Regular rate and rhythm, sinus rhythm on telemetry. Sternum stable. Palpable peripheral pulses bilaterally. Trace bilateral lower extremity edema present. No calf pain or tenderness noted. Heart hugger in place with patient demonstrating appropriate use. Antiembolism stockings, SCDs present. GASTROINTESTINAL: Abdomen soft, nontender, nondistended. Active bowel sounds present 4 quadrants. Tolerating diet. Positive bowel movement x 4 yesterday per patient, not documented in [place] GENITOURINARY: Continues to void. Output 2950 mL in the last 24 hours INTEGUMENTARY: Skin is warm and dry with evidence of good perfusion. Anterior chest incision well approximated. Left radial artery site well approximated without redness or drainage. NEUROLOGIC: Cranial nerves II through XII intact MUSKULOSKELETAL: Able to move all extremities, strength equal bilaterally, gait normal PSYCHIATRIC: Alert and oriented to person place and time, appropriate affect, intact judgment and insight - Allied health notes Allied health notes reviewed: nursing - Labs CBC & Chem 7: 06/21/24 05:57 06/21/24 05:57 Labs: Abnormal Lab Results - Last 24 Hours (Table) 06/20/24 06/20/24 06/20/24 Range/Units 11:18 16:35 20:05 RBC (4.30-5.90) m/uL Hgb (13.0-17.5) gm/dL Hct (39.0-53.0) % Sodium (137-145) mmol/L BUN (9-20) mg/dL Glucose (74-99) mg/dL POC Glucose (mg/dL) 161 H 120 H 133 H (70-110) mg/dL 06/21/24 06/21/24 06/21/24 Range/Units 05:57 05:57 06:23 RBC 3.14 L (4.30-5.90) m/uL Hgb 10.3 L (13.0-17.5) gm/dL Hct 29.7 L (39.0-53.0) % Sodium 135 L (137-145) mmol/L BUN 8 L (9-20) mg/dL Glucose 111 H (74-99) mg/dL POC Glucose (mg/dL) 120 H (70-110) mg/dL - Imaging and Cardiology Chest x-ray: image reviewed Assessment and Plan Assessment: Double vessel diffuse coronary artery disease with totally occluded left anterior descending artery, status post two-vessel CABG Preserved left ventricular function Postoperative acute blood loss anemia, expected given hemodilution and cardiopulmonary bypass pump History of hyperlipidemia, cholesterol 153, calculated LDL 46.4, triglycerides 287 Hypertension Chronic tobacco dependance with cessation 05/26/24 Mild obstructive lung disease, preoperative FEV1 70% of predicted EtOH abuse with cessation 05/26/24 Daily marijuana use Family history of premature coronary artery disease in his father Plan: Continue to maximize medical therapy with aspirin, statin, Plavix, and beta- frank therapy. Will start low-dose calcium channel frank for radial artery prophylaxis and afterload reduction Continue amiodarone 400 mg p.o. twice daily for atrial fibrillation prophylaxis, no atrial fibrillation reported to date, currently in normal sinus rhythm. Encourage incentive spirometry use 10 times every hour while awake. Bronchodilators per pulmonology Will monitor daily labs and chest x-rays, electrolyte replacement per protocol Increase activity, ambulate as tolerated. PT/OT/cardiac rehab following GI/DVT prophylaxis Insulin management per internal medicine, patient is not diabetic, preoperative hemoglobin A1c 5.6% Pain control per current medication regimen Continue to monitor and record strict accurate intake and output. Daily weights Shower daily Discharge planning in progress, anticipate discharge to home with home care today More recommendations to follow based on patient's clinical course
--- NOTE | 2024-06-21 08:09 | XR ---
EXAMINATION TYPE: XR chest 2V DATE OF EXAM: 06/21/2024 6:18 AM COMPARISON: 06/20/2024 CLINICAL INDICATION: Male, 49 years old with history of Postcardiac surgery, , TECHNIQUE: PA and lateral views FINDINGS: Median sternotomy wires are present. Post-CABG clips. Heart remains borderline to mildly enlarged. In terstitial prominence is unchanged. Patchy retrocardiac and left basilar opacity and trace left effus ion remains. No appreciable pneumothorax. IMPRESSION: Post-CABG changes with residual mild pulmonary vascular congestion, trace left effusion, and some pat stephanie left basilar opacity. [facility], Workstation: [email or web address], 06/21/2024 8:07 AM
[2024-06-21] MEDS: POTASSIUM CHLORIDE ER 20 MEQ TAB.ER PO STA (08:38)
[2024-06-21] MEDS: ACETAMINOPHEN TAB 325 MG TAB PO PRN (08:39)
[2024-06-21] MEDS: POTASSIUM CHLORIDE ER 10 MEQ TAB.ER.PRT PO SCH (08:40)
[2024-06-21] MEDS: FUROSEMIDE 20 MG TAB PO SCH (08:43)
[2024-06-21 10:25] VITALS: RESP 16
[2024-06-21 11:23] LABS: Glucose,Whole Blood 122 mg/dL (70-110)
--- NOTE | 2024-06-21 11:37 | P.PN ---
Subjective Progress Note Date: 06/21/24 Hospital Course: Hospital Course: Hospital Course: Patient is a 49-year-old male with past medical history of tobacco use disorder, hyperlipidemia, with no use, marijuana use, CAD s/p heart cath March 2024-Calcified left anterior descending coronary artery with chronic total occlusion with collaterals from the right coronary system, chronically occluded right to's marginal as well as critical stenosis in the first acute marginal coronary artery, mild disease, positive family history of premature CAD, who presented for elective CABG that was performed on 06/16/2024, TEJADA to LAD bypass, left radial to OM 3 bypass, transferred to ICU IM Consulted for medical management. patient was extubated on 06/16, currently satting well on nasal cannula, no pressor support. Sitting in the recliner, complaining of postop pain, difficulties taking deep breath in. Insulin drip discontinued, started on SSI. Feeling better today, pain is under fair control, appetite is coming back. Patient is ready for discharge, pending home health care. Pertinent positives and negatives as discussed above, a complete review of systems was performed and all other systems are negative. Vitals Signs Reviewed. General: nontoxic, no distress, appears at stated age Derm: warm, dry Head: atraumatic, normocephalic, symmetric Eyes: EOMI, no lid lag, anicteric sclera, pupils equal round reactive to light ENT: Nose and ears atraumatic Neck: No thyromegaly, supple Mouth: no lip lesion, mucus membranes moist Cardiovascular: S1S2 reg, no murmur, no edema, dressing dry, clean, left chest tube in place, surgical scar clean and dry Lungs: clear to auscultation bilateral, no rhonchi, no rales, no wheeze, no accessory muscle use Abdominal: soft, nontender to palpation, no guarding, no appreciable organome leann Ext: no gross muscle atrophy, muscle strength muscle strength 5 out of 5 in all 4 extremities, no contractures Neuro: CN II-XII grossly intact Psych: Alert, oriented, appropriate affect Lab work reviewed: Hemoglobin stable 10.3, platelet count normal, no leukocytosis, normal kidney function, sodium 135, potassium 3.8 Chest x-ray stable bilateral pleural effusions, focal areas of atelectasis Assessment and Plan: CAD s/p TEJADA to LAD bypass 06/16/2024 Acute postop blood loss anemia, stable Thrombocytopenia, resolved Leukocytosis, resolved Hypertension Hyperlipidemia Tobacco use disorder, quit 05/26/24 Atenolol abuse, last drink 05/26/24 Family history of premature CAD Acute postop hypoxic respiratory failure -Cardiology, cardiothoracic surgery, neurology following -Extubated 06/16 -Insulin drip discontinued, continue with Accu-Cheks, SSI -Aspirin 325, atorvastatin 40 daily, Plavix 75 -Metoprolol 12.5 twice daily -Amiodarone 400 twice daily for A-fib prophylaxis -Protonix 40 daily -Monitor CBC, BMP, magnesium, -Continue thiamine and folic acid, last drink 05/26/24 -Patient was extubated 02/14, currently on nasal cannula, wean off as tolerated -PT OT, incentive spirometry -Martinez is out, pericardial tubes are, left chest tube out, -Now on 3 S., getting ready for discharge. Objective - Vital Signs Vital signs: Vital Signs Temp 97.0 F L 06/20/24 20:39 Pulse 72 06/21/24 11:32 Resp 16 06/21/24 08:25 BP 108/60 06/21/24 08:25 Pulse Ox 100 06/21/24 08:25 FiO2 40 06/16/24 16:45 Intake & Output 06/20/24 06/21/24 06/21/24 18:59 06:59 18:59 Intake Total 580 118 Output Total 1750 1200 Balance -1170 -1200 118 Weight 96.9 kg Intake: IV 100 Magnesium Sulfate-D5w Pmx 100 1 gm In Dextrose/Water 1 100ml.bag @ 100 mls/hr IVPB ONCE ONE Rx#: [id number] Oral 480 118 Output: Urine 1750 1200 Other: Voiding Method Urinal Toilet ABP, PAP, CO, CI - Last Documented Arterial Blood Pressure Pulmonary Artery Pressure Cardiac Output 5.2 Cardiac Index 2.6 - Labs CBC & Chem 7: 06/21/24 05:57 06/21/24 05:57 Labs: Abnormal Lab Results - Last 24 Hours (Table) 06/20/24 06/20/24 06/21/24 Range/Units 16:35 20:05 05:57 RBC 3.14 L (4.30-5.90) m/uL Hgb 10.3 L (13.0-17.5) gm/dL Hct 29.7 L (39.0-53.0) % Sodium (137-145) mmol/L BUN (9-20) mg/dL Glucose (74-99) mg/dL POC Glucose (mg/dL) 120 H 133 H (70-110) mg/dL 06/21/24 06/21/24 06/21/24 Range/Units 05:57 06:23 11:22 RBC (4.30-5.90) m/uL Hgb (13.0-17.5) gm/dL Hct (39.0-53.0) % Sodium 135 L (137-145) mmol/L BUN 8 L (9-20) mg/dL Glucose 111 H (74-99) mg/dL POC Glucose (mg/dL) 120 H 122 H (70-110) mg/dL
[2024-06-21] MEDS: amLODIPine 2.5 MG TAB PO SCH (11:39)
--- NOTE | 2024-06-21 11:49 | P.DS ---
Providers Date of admission: 06/16/24 05:36 Expected date of discharge: 06/21/24 Attending physician: Wendy Pleitez Consults: 06/16/24 13:43 Consult Physician Routine Consulting Provider: Tony Rinaldi Consult Reason/Comments: Log Hauler Consult: post cardiac surgery Do you want consulting provider notified?: Yes Consult Physician Routine Consulting Provider: Cedrick Desai Consult Reason/Comments: med mgmt; no PCP Do you want consulting provider notified?: Yes Consult Physician Routine Consulting Provider: Barrington Francisco Consult Reason/Comments: Consultative Sales Associate Consult: post cardiac surgery Do you want consulting provider notified?: Yes Primary care physician: Stated None Hospital Course: FINAL DIAGNOSIS: Double vessel diffuse coronary artery disease with totally occluded left anterior descending artery Preserved left ventricular function Postoperative acute blood loss anemia, expected given hemodilution and cardiopulmonary bypass pump History of hyperlipidemia, cholesterol 153, calculated LDL 46.4, triglycerides 287 Hypertension Chronic tobacco dependance with cessation 05/26/24 Mild obstructive lung disease, preoperative FEV1 70% of predicted EtOH abuse with cessation 05/26/24 Daily marijuana use Family history of premature coronary artery disease in his father PRINCIPAL PROCEDURE: Total arterial double coronary artery bypass grafting using the in situ left intramammary artery to the left anterior descending artery, the left radial artery from the aorta to the third obtuse marginal artery Exclusion of the left atrial appendage using a 35mm AtriClip Endoscopic harvesting of the left radial artery Intraoperative Graft flow measurements using the sharing.it system Intraoperative transesophageal echocardiogram and epiaortic scanning HISTORY OF PRESENT ILLNESS: This is a 49-year-old gentleman who does not follow with a primary care physician on an outpatient basis, but does follow with Dr. Majano for cardiology. He had been experiencing substernal chest pain with radiation and numbness to his left arm associated with occasional shortness of breath. These episodes have been intermittent since October, they were mostly with activity although he did admit that he occasionally woke up from sleep in the middle of the night due to chest pain. He began following with Dr. Majano at [facility] and was started on aspirin, statin, beta-frank therapy. In the middle of February he underwent echocardiogram revealing normal left ventricular systolic function with EF 55 to 60%, mild left ventricular hypertrophy, trace to mild mitral regurgitation, and mild tricuspid regurgitation. He also had a treadmill stress test which demonstrated 1.[address] segment depression in leads II, III, aVF, V4 through V6. Due to these findings the patient was recommended to undergo heart catheterization which was completed Dr. Majano revealing calcified left anterior descending coronary artery with chronic total occlusion and collaterals from the right coronary system, chronically occluded third obtuse marginal as well as critical stenosis in the first obtuse marginal coronary artery and mild disease in the right coronary artery. The patient was referred to Dr. Pleitez from cardiothoracic surgery. He was recommended to undergo elective coronary artery bypass surgery. The usual perioperative course was discussed in detail with the patient, all risks and benefits were explained, all questions were answered, and consent was obtained to proceed with surgery. The patient was scheduled for surgery at the earliest possible date, however patient canceled his initial date as he needed more time to quit smoking and drinking. Once he officially quit he contacted our office and he was rescheduled for surgical revascularization. HOSPITAL COURSE: The patient was brought to the hospital on 06/16/24, taken to the preoperative area, prepared in the usual fashion, and subsequently taken to the operating room where Dr. Pleitez performed two-vessel CABG. Upon completion of surgery the patient was transferred to the cardiovascular intensive care unit where he was recovered and monitored hemodynamically. He was extubated, all lines, tubes, and drips were discontinued when appropriate, and he was transferred to 3 S cardiac stepdown unit for further monitoring and rehabilitation. His oxygen was titrated down, he continued to work with physical and occupational therapy, he was tolerating oral diet, his pain was controlled, and he was ready to be discharged to home with [facility] care on postoperative day #5. He received written and verbal instruction regarding his medications, activity restrictions, signs and symptoms requiring physician notification, and follow-up appointments. Patient Condition at Discharge: Stable Plan - Discharge Summary Discharge Rx Participant: No New Discharge Prescriptions: New Amiodarone [Cordarone] 400 mg PO DAILY #28 tab Potassium Chloride ER [K-Dur 10] 10 meq PO DAILY #10 tab Pantoprazole [Protonix] 40 mg PO AC-BRKFST #30 tab Sennosides-Docusate Sodium [Senokot-S] 2 each PO HS PRN tab PRN Reason: Constipation Acetaminophen Tab [Tylenol] 650 mg PO Q4HR PRN tab PRN Reason: Fever And/ Or Mild Pain (1-3) Furosemide [Lasix] 20 mg PO DAILY #10 tab Multivitamins, Thera [Multivitamin (formulary)] 1 each PO DAILY tab amLODIPine [Norvasc] 2.5 mg PO DAILY@1200 #30 tab Clopidogrel [Plavix] 75 mg PO DAILY #30 tab Albuterol Sulfate [Albuterol Sulfate Hfa] 1 puff PO Q4-6H PRN 30 Days #8.5 gm PRN Reason: Shortness Of Breath Or Wheezing Continue Atorvastatin [Lipitor] 40 mg PO DAILY #30 tablet Metoprolol Tartrate [Lopressor] 50 mg PO BID #0 Aspirin 81 mg PO DAILY Thiamine [Vitamin B-1] 100 mg PO DAILY #30 tablet Discontinued Nitroglycerin Sl Tabs [Nitrostat] 0.4 mg SUBLINGUAL Q5M PRN #25 tab PRN Reason: Chest Pain Mupirocin [Mupirocin 2%] 1 applic NASAL BID #1 tub Discharge Medication List Aspirin 81 mg PO DAILY 04/06/24 [History] Atorvastatin [Lipitor] 40 mg PO DAILY #30 tablet 04/13/24 [Rx] Thiamine [Vitamin B-1] 100 mg PO DAILY #30 tablet 04/13/24 [Rx] Acetaminophen Tab [Tylenol] 650 mg PO Q4HR PRN tab 06/21/24 [Rx] Albuterol Sulfate [Albuterol Sulfate Hfa] 1 puff PO Q4-6H PRN 30 Days #8.5 gm 06/21/24 [Rx] Amiodarone [Cordarone] 400 mg PO DAILY #28 tab 06/21/24 [Rx] Clopidogrel [Plavix] 75 mg PO DAILY #30 tab 06/21/24 [Rx] Furosemide [Lasix] 20 mg PO DAILY #10 tab 06/21/24 [Rx] Metoprolol Tartrate [Lopressor] 50 mg PO BID #0 06/21/24 [Rx] Multivitamins, Thera [Multivitamin (formulary)] 1 each PO DAILY tab 06/21/24 [Rx] Pantoprazole [Protonix] 40 mg PO AC-BRKFST #30 tab 06/21/24 [Rx] Potassium Chloride ER [K-Dur 10] 10 meq PO DAILY #10 tab 06/21/24 [Rx] Sennosides-Docusate Sodium [Senokot-S] 2 each PO HS PRN tab 06/21/24 [Rx] amLODIPine [Norvasc] 2.5 mg PO DAILY@1200 #30 tab 06/21/24 [Rx] Follow up Appointment(s)/Referral(s): Ana Chen, SUSANNA [Nurse Practitioner] - 06/24/24 10:00 am (You will be seen in the surgeon's office behind the hospital in [facility], [address] Office phone number is ; COME TO SURGEON'S OFFICE AFTER YOUR APPOINTMENT WITH DR. RINALDI-NO NEED TO HURRY) Noe Majano MD [STAFF PHYSICIAN] - 07/02/24 10:30 am [facility] [NON-STAFF] - 4 Weeks (You will receive a phone call in approximately 4-6 weeks for evaluation for cardiac rehab) Wendy Pleitez MD [STAFF PHYSICIAN] - 07/16/24 10:00 am Tony Rinaldi DO [Doctor of Osteopathic Medicine] - 06/24/24 9:30 am [facility], [NON-STAFF] - 1-2 Days (oil boiler should visit the day after discharge, then 2-3 times per week until you start cardiac rehab. Physical/Occupational Therapy should visit at least once, may continue to visit if necessary) Ambulatory/Diagnostic Orders: Complete Blood Count w/diff [LAB.AMB] Time Frame: 3 Days, Location: None Selected Comprehensive Metabolic Panel [LAB.AMB] Time Frame: 3 Days, Location: None Selected Patient Instructions/Handouts: Alcohol Withdrawal (GEN) Activity/Diet/Wound Care/Special Instructions: DISCHARGE INSTRUCTIONS: 1. No driving for 4 weeks, or until physician gives their ok. 2. The patient should sleep in their own bed, no medical bed needed. 3. Stairs are not an issue. If the bedroom is upstairs, it is advised that the patient go up at night and down in the morning for the first week. Go slowly, using handrail and take 1 step at a time. 4. EUFEMIA hose are to be worn for 30 days post surgery or until physician discontinues. 5. Heart hugger is to be worn 100% of the time until physician discontinues.(except when showering) 6. No lifting, pushing, or pulling more than 10 pounds for 12 weeks. The physician will advise of any restriction changes. 7. The patient is expected to continue the prescribed walking program. 8. Continue pain control per as needed orders. 9. Continue with incentive spirometry and splinting/heart hugger until otherwise directed by the physician. 10. Must shower daily using liquid antibacterial soap 11. Routine sternal incision care. No powders, lotions, ointments on incisions. No dressings are necessary on incisions unless they are draining. Dermabond tape is to remain on sternal incision until surgeon follow-up. 12. Please call surgeon/SPECIMEN COLLECTOR for temp greater than 101 F or purulent drainage from incisions. 13. You should weigh yourself daily, record and bring log with you to follow up appointments. 14. All prescriptions given by surgeon for 30 days. Refills need to be filled through building equipment operator/primary care physician. 15. A Red armband has been placed on the patient. It should be worn for 30 days post discharge from surgery and will be removed by the cardiac surgeons. If an ER visit is necessary, please make sure the number on the Red armband is called before going to ER. 16. You have been referred to and are expected to begin Cardiac Rehab in approx imately 4-6 weeks. 17. Quitting smoking is the most important step you can take to improve your health. For additional information and assistance to quit smoking, please call the [place] tobacco quit line (9-891-ZSPH-NOW/ ) or online: [email or web address] it-[email or web address] HOME HEALTH SERVICES TO PROVIDE: RN SKILLED HOME CARE SERVICES FOR POST-OP SURGICAL PATIENTS WITH THE FOLLOWING: Coronary Artery Bypass Surgery (CABG), Mitral Valve Replacement/Repair ( MVR), Aortic Valve Replacement/Repair (AVR) RN TO CONTINUE EDUCATION FROM ``ROAD TO A HEALTH HEART PATIENT EDUCATION MANUAL (GIVEN TO PATIENT IN THE HOSPITAL) MEDICATION RECONCILIATION WITH EDUCATION NEEDED ON FIRST HOME VISIT EMPHASIZE IMPORTANCE OF WEARING BREAST SUPPORT/HEART HUGGER ENCOURAGE USE OF INCENTIVE SPIROMETER 10 X EVERY HOUR WHILE AWAKE ENCOURAGE UTILIZATION OF LOWER EXTREMITY COMPRESSION STOCKINGS/EUFEMIA HOSE and ELEVATE LEGS ABOVE LEVEL OF HEART WHILE AT REST. ENCOURAGE AMBULATION 3-5x/day INCREASING TOLERATES, WHILE AVOIDING EXTREMES IN TEMPERATURE FREQUENCY: RN TO OPEN THE PATIENT WITHIN 24 HOURS OF DISCHARGE FROM THE HOSPITAL WITH TELEHEALTH INSTALLED AT [facility], RN TO VISIT 2-3 X A WEEK FOR 4 WEEKS ESTABLISHED BY PATIENT NEEDS. LABORATORY: CBC, CMP TO BE DRAWN ON THE THIRD DAY HOME, (RAN STAT) FAX RESULTS TO [phone]. TELEHEALTH PARAMETERS: WEIGHT: NOTIFY MD OF WEIGHT GAIN OF 2 LBS IN 24 HOURS OR 5 LBS IN ONE WEEK HR: NOTIFY MD OF HR <55 BPM OR HR>100 BPM BP: NOTIFY MD IF BP <90/55 OR BP>140/100 O2 SAT: NOTIFY MD IF PO2<93% ON ROOM AIR SEND TELEHEALTH REPORT TO LAPPING MACHINE OPERATOR AND CARDIOVASCULAR SURGEON THE FIRST WEEK OF CARE AND THEN BI-WEEKLY. PLEASE ADDITIONALLY COMMUNICATE ANY ABNORMALS AND NEW FINDINGS TO THE SURGEONS OFFICE. Discharge Disposition: HOME WITH HOME HEALTH SERVICES
[2024-06-21 12:17] VITALS: BP 111/53; PULSE 72; TEMP 98.1
--- NOTE | 2024-06-21 14:11 | P.PN ---
Subjective Progress Note Date: 06/21/24 This is a 49-year-old male patient with a known history of chronic and ongoing tobacco dependence, chronic daily alcohol use including 1 pint daily, marijuana use hyperlipidemia who had undergone cardiac catheterization in March 2024 for ongoing chest pain. He was found to have a calcified left anterior descending artery, chronic total occlusion and collaterals from the right coronary system, chronically occluded third obtuse marginal branch as well as critical stenosis in the first obtuse marginal coronary artery and mild disease in the right coronary artery. He was recommended surgical revascularization. He was brought in today electively for the surgery. A double coronary artery bypass grafting utilizing the TEJADA to the LAD and the left radial artery from the aorta to the third obtuse marginal artery. Exclusion of left atrial appendage. He is today postoperatively in the intensive care unit. He is currently intubated on the mechanical ventilator and assist-control mode at a rate of 14, tidal volume 450, FiO2 100% and a PEEP of 10. Follow-up blood gases revealed a PaO2 of 405. pCO2 of 47 and a pH of 7.33. FiO2 was decreased to 60%. Cardiac output 5.2. Cardiac index 2.6. CVP 17. The [place]-Aparna catheter was inadvertently removed as it was coiled in the right ventricle. He is continued on propofol at 40 mcg/kg/min. Nitroglycerin at 5 mg/min. Insulin drip at 0.5 units/h. Normal saline at 40 mL/h. He has a mediastinal and left pleural chest tubes in place. Pacer wires in place. Favian wrap to the right upper forearm. Favian wraps to the bilateral lower extremities. Chest x-ray reveals endotracheal and nasogastric tubes in place. Left thoracotomy in place without evidence of pneumothorax. Chest tube in the mediastinum. White count 17.4. Hemoglobin 11.8. Platelets 146. INR 1.1. Sodium 137. Potassium 4.0. Bicarb 24. BUN 9. Creatinine 0.64. Glucose 124. Magnesium 2.5. He has been initiated on DuoNeb inhalations. Heparin for DVT prophylaxis The patient was seen today June 17, 2024 in follow-up in the intensive care unit. He is awake and alert in no acute distress. Sitting up in a chair at the bedside. Maintaining O2 saturations in the 90s on 2 L/min per nasal cannula. Postoperative day #1. Left pleural and mediastinal chest tubes remain in place. Chest x-ray reveals persistent cardiomegaly with slight worsening central vascular congestion and developing left basilar infiltrate and/or atelectasis. He is encouraged regarding the increased use of the incentive spirometer. White count 16.2. Hemoglobin 11.1. Platelets 156. Sodium 137. Potassium 3.6. Bicarb 23. BUN 9. Creatinine 0.62. Glucose 109. AST 42. ALT 16. He remains on bronchodilators. Heparin for DVT prophylaxis. Currently on amiodarone and Lopressor. Insulin drip at 2 units/h. Normal saline at 50 mL/h. The patient was seen today June 18, 2024 and follow-up in the intensive care unit. He is awake and alert and in no acute distress. Sitting up in the chair at bedside. Maintaining O2 saturations in the mid to upper 90s on 2L per nasal cannula. Postoperative day #2. Left pleural and mediastinal chest tubes remain in place without signs of erythema or infection. Chest x-ray interpreted by me shows potentially slightly worsening left basilar infiltrate and/or atelectasis. Patient continues to be encouraged to increase his use of the incentive spirometer. Labs are significant for WBC 13.2, hemoglobin 9.5, platelet count 122,000, sodium 135, BUN 8, creatinine 0.66, glucose 110, and T. bili 2.1. Patient remains on bronchodilators and heparin for DVT prophylaxis. Patient remains on amiodarone and Lopressor. Insulin drip discontinued this morning and sliding scale started. Normal saline at KVO 20 mL per hour. Will receive one- time dose of Lasix 20 mg per surgery. The patient was seen today June 19, 2024 in follow-up in the intensive care unit. He is awake and alert and in no acute distress, sitting up in the chair at bedside. Continues to maintain O2 saturation in the mid to upper 90s on room air. Postoperative day #3. Left pleural mediastinal chest tubes remain in place without signs of infection, will be removed today by surgery. Chest x-ray shows opacities in the left lung have decreased in the interval and there is improved aeration at the left lung base. There has been development of small focal opacity in the right upper lung zone possibly focal atelectasis. Patient continues to be encouraged to increase use of incentive spirometer. Continues on sliding scale. KVO NS 20ml,hr. Recieved one time dose of Lasix 20mg yesterday and patient continues to have good urine output. Per surgery will start ARB once BP allows today. Progress note dated June 20, 2023. This is a 49-year-old male who is postop day #4, status post bypass grafting. The patient is currently seen today in room 364. He is on room air. He is not receiving any IV fluids. He is doing well, and states that he feels well. He denies any shortness of breath, cough, wheezing, chest tightness, chest pain or pressure, palpitations, etc. Current laboratory data includes a white count of 9.1, hemoglobin 10.1, hematocrit 29.6, platelet count 242,000. Sodium 136, potassium 3.6, chloride 96, CO2 30, BUN 7, creatinine 0.78. Glucose is 161. Calcium 9.2. Magnesium 1.9. Chest x-ray shows interval removal of left-sided chest tube, without evidence of pneumothorax. There are some mild bibasilar atelectasis. On 06/21/2024, the patient is doing extremely well., Comfortable. He remains on room air oxygen. Chest x-ray shows some atelectatic changes and small left- sided pleural effusion. Otherwise no other acute abnormalities have been noted. Cardiac rhythm is sinus. Hemoglobin at 10.3. BUN is at 8 with a creatinine of 0.89 and a sodium levels at 135. Patient using incentive spirometer. The patient is on aspirin and Plavix. The patient is also on metoprolol 50 mg p.o. twice daily and albuterol 4 mg p.o. daily. Patient is on Lasix 20 mg p.o. daily. Also on Norvasc 2.5 mg p.o. daily for blood pressure control. No focal neurological deficits. No other new complaints otherwise for now. Is postop day #5. Objective - Vital Signs Vital signs: Vital Signs Temp 97.0 F L 06/20/24 20:39 Pulse 80 06/21/24 08:29 Resp 16 06/21/24 08:25 BP 108/60 06/21/24 08:25 Pulse Ox 100 06/21/24 08:25 FiO2 40 06/16/24 16:45 Intake & Output 06/20/24 06/21/24 06/21/24 18:59 06:59 18:59 Intake Total 580 118 Output Total 1750 1200 Balance -1170 -1200 118 Weight 96.9 kg Intake: IV 100 Magnesium Sulfate-D5w Pmx 100 1 gm In Dextrose/Water 1 100ml.bag @ 100 mls/hr IVPB ONCE ONE Rx#: [id number] Oral 480 118 Output: Urine 1750 1200 Other: Voiding Method Urinal Toilet ABP, PAP, CO, CI - Last Documented Arterial Blood Pressure 31/27 Pulmonary Artery Pressure 28/20 Cardiac Output 5.2 Cardiac Index 2.6 - Exam No acute distress, oriented 3. Currently on room air. HEENT examination is grossly unremarkable. Mucous membranes are moist. No oral lesions. Neck supple. Full range of motion. No adenopathy thyromegaly or neck vein distention. Cardiovascular examination reveals regular rhythm rate. S1-S2 normal. No S3 or S4. No discernible murmur noted. Lungs reveal mostly clear breath sounds. Minimal rhonchi. No wheezes or crackles. Breath sounds equal. The surgical wound site is dry clean and intact. Abdomen soft bowel sounds are heard. No masses or tenderness. Extremities are intact. No cyanosis clubbing or edema. Skin is without rash or lesion. Neurologic examination is brief but nonfocal. - Labs CBC & Chem 7: 06/21/24 05:57 06/21/24 05:57 Labs: Abnormal Lab Results - Last 24 Hours (Table) 06/20/24 06/20/24 06/20/24 Range/Units 11:18 16:35 20:05 RBC (4.30-5.90) m/uL Hgb (13.0-17.5) gm/dL Hct (39.0-53.0) % Sodium (137-145) mmol/L BUN (9-20) mg/dL Glucose (74-99) mg/dL POC Glucose (mg/dL) 161 H 120 H 133 H (70-110) mg/dL 06/21/24 06/21/24 06/21/24 Range/Units 05:57 05:57 06:23 RBC 3.14 L (4.30-5.90) m/uL Hgb 10.3 L (13.0-17.5) gm/dL Hct 29.7 L (39.0-53.0) % Sodium 135 L (137-145) mmol/L BUN 8 L (9-20) mg/dL Glucose 111 H (74-99) mg/dL POC Glucose (mg/dL) 120 H (70-110) mg/dL Assessment and Plan Plan: Postop day # 5 status post two-vessel bypass surgery, progressing nicely. The patient is hemodynamically stable. Cardiac rhythm is sinus. No complaints. Postthoracotomy, currently on room air oxygen. Chest tubes have been removed. The patient's chest x-ray shows a small left-sided pleural effusion, essentially postsurgical in nature. Chronic and ongoing tobacco dependence. Chronic daily alcohol use. Chronic daily marijuana use. History of hyperlipidemia. History of hypertension. Family history of premature coronary disease. Plan: Continue aspirin and Plavix Continue metoprolol 50 mg p.o. twice a day Continue amiodarone 400 mg p.o. daily Continue Norvasc 2.5 mg p.o. daily Statins and the patient is currently on Lipitor 40 mg p.o. daily Room air oxygen Using incentive spirometer Ambulating Cardiac rhythm is sinus Possibly home today
--- NOTE | 2024-06-21 14:19 | P.PN ---
Subjective Progress Note Date: 06/21/24 HISTORY OF PRESENT ILLNESS: This is a 49-year-old male who follows in the office with Dr. Majano. Patient is status post two-vessel CABG. Patient examined this morning. Patient is sitting up in the chair. Patient currently denies chest pain or pressure. He denies shortness of breath. He reports mild surgical tenderness that is relieved with oral medications. He has been ambulating up in the hallway. Telemetry reveals sinus mechanism. Vital signs are stable. 06/21 Patient seen and examined. Blood pressure 123/86, heart rate 70, pulse ox 96% on room air. Patient states that he is scheduled for discharge home today. He denies having chest pain, shortness of breath, lightheaded or dizziness. Patient has been active and ambulating. PHYSICAL EXAM: VITAL SIGNS: Reviewed. GENERAL: Well-developed in no acute distress. NECK: Supple. No JVD or thyromegaly LUNGS: Respirations even and unlabored. Lungs essentially clear to auscultation bilaterally. HEART: Regular rate and rhythm. S1 and S2 heard. EXTREMITIES: Normal range of motion. No clubbing or cyanosis. Peripheral pulses intact. No lower extremity edema ASSESSMENT: Coronary artery disease, status post two-vessel CABG Hypertension Hyperlipidemia Nicotine dependence with recent sensation History of alcohol abuse Daily marijuana use PLAN: Continue postoperative management per CT surgery Encourage use of incentive spirometer Increase activity as tolerated Continue current cardiac medications Continue telemetry monitoring Anticipate discharge home Nurse practitioner note has been reviewed by physician. Signing provider agrees with the documented findings, assessment, and plan of care documented by DISC JOCKEY as a scribe. Objective - Vital Signs Vital signs: Vital Signs Temp 97.0 F L 06/20/24 20:39 Pulse 80 06/21/24 08:29 Resp 18 06/21/24 04:30 BP 123/86 06/21/24 04:30 Pulse Ox 96 06/21/24 04:30 FiO2 40 06/16/24 16:45 Intake & Output 06/20/24 06/21/24 06/21/24 18:59 06:59 18:59 Intake Total 580 118 Output Total 1750 1200 Balance -1170 -1200 118 Weight 96.9 kg Intake: IV 100 Magnesium Sulfate-D5w Pmx 100 1 gm In Dextrose/Water 1 100ml.bag @ 100 mls/hr IVPB ONCE ONE Rx#: [id number] Oral 480 118 Output: Urine 1750 1200 Other: Voiding Method Urinal Toilet ABP, PAP, CO, CI - Last Documented Arterial Blood Pressure Pulmonary Artery Pressure Cardiac Output 5.2 Cardiac Index 2.6 - Labs CBC & Chem 7: 06/21/24 05:57 06/21/24 05:57 Labs: Abnormal Lab Results - Last 24 Hours (Table) 06/20/24 06/20/24 06/20/24 Range/Units 11:18 16:35 20:05 RBC (4.30-5.90) m/uL Hgb (13.0-17.5) gm/dL Hct (39.0-53.0) % Sodium (137-145) mmol/L BUN (9-20) mg/dL Glucose (74-99) mg/dL POC Glucose (mg/dL) 161 H 120 H 133 H (70-110) mg/dL 06/21/24 06/21/24 06/21/24 Range/Units 05:57 05:57 06:23 RBC 3.14 L (4.30-5.90) m/uL Hgb 10.3 L (13.0-17.5) gm/dL Hct 29.7 L (39.0-53.0) % Sodium 135 L (137-145) mmol/L BUN 8 L (9-20) mg/dL Glucose 111 H (74-99) mg/dL POC Glucose (mg/dL) 120 H (70-110) mg/dL
[2024-06-22 10:26] LABS: Glucose,Whole Blood 138 mg/dL (70-110)
== END 2024-06-21 13:54 | disposition home health service (06) | DRG 235 ==
LOC: 2ORMAIN 05:36 → 2SICU 12:10 → 3SCARD 06-19 15:17
PROVIDERS: ADMIT Surgery; ATTEND Surgery
PROC: B24BZZ4 Ultrasonography of Heart with Aorta, Transesophageal (ICD-10-PCS; principal; 2024-06-16 08:00)
PROC: 02100Z9 Bypass Coronary Artery, One Artery from Left Internal Mammary, Open Approach (ICD-10-PCS; principal; 2024-06-16 08:00)
PROC: 03BB4ZZ Excision of Right Radial Artery, Percutaneous Endoscopic Approach (ICD-10-PCS; principal; 2024-06-16 08:00)
PROC: 02100AW Bypass Coronary Artery, One Artery from Aorta with Autologous Arterial Tissue, Open Approach (ICD-10-PCS; principal; 2024-06-16 08:00)
PROC: 5A1221Z Performance of Cardiac Output, Continuous (ICD-10-PCS; principal; 2024-06-16 08:00)
PROC: 02L70ZK Occlusion of Left Atrial Appendage, Open Approach (ICD-10-PCS; principal; 2024-06-16 08:00)
DX: I25.10 Atherosclerotic heart disease of native coronary artery without angina pectoris (principal); J96.01 Acute respiratory failure with hypoxia; J90 Pleural effusion, not elsewhere classified; D69.6 Thrombocytopenia, unspecified; D62 Acute posthemorrhagic anemia; D72.829 Elevated white blood cell count, unspecified; E11.9 Type 2 diabetes mellitus without complications; F10.11 Alcohol abuse, in remission; J44.9 Chronic obstructive pulmonary disease, unspecified; I10 Essential (primary) hypertension; J98.11 Atelectasis; I25.82 Chronic total occlusion of coronary artery; M10.9 Gout, unspecified; E78.5 Hyperlipidemia, unspecified; Z87.891 Personal history of nicotine dependence; Z79.82 Long term (current) use of aspirin; Z79.899 Other long term (current) drug therapy; Z71.3 Dietary counseling and surveillance; Z88.8 Allergy status to other drugs, medicaments and biological substances
CPT/HCPCS: 71045; 71046; 80048; 80053; 82330; 82805; 83735; 84132; 85025; 85027; 85610; 85730; 86850; 86891; 86900; 86901; 86920; 94640; 94760

== ENCOUNTER → 2024-09-02 | Outpatient (CLI) | payer OTHER ==
[2024-09-02 15:31] LABS: Chol/HDL Ratio 3.94 Ratio
[2024-09-02 15:32] LABS: ALT 20 U/L (10-49); AST 23 U/L (14-35); Albumin 4.3 g/dL (3.8-4.9); Albumin/Globulin Ratio 1.72 Ratio (1.60-3.17); Alkaline Phosphatase 95 U/L (41-126); BUN/Creat Ratio 19.38 Ratio (12.00-20.00); Blood Urea Nitrogen 15.5 mg/dL (9.0-27.0); Calcium 8.9 mg/dL (8.7-10.3); Carbon Dioxide 21.4 mmol/L (21.6-31.8); Chloride 106 mmol/L (96-109); Globulin 2.5 g/dL (1.6-3.3); Glucose 131 mg/dL (70-110); LDL Cholesterol,Calculated 74.5 mg/dL (0.0-131.0); Potassium 4.1 mmol/L (3.5-5.5); Sodium 144 mmol/L (135-145); Total Bilirubin 0.4 mg/dL (0.3-1.2); Total Protein 6.8 g/dL (6.2-8.2)
== END | disposition home or self-care (01) ==
LOC: LABWHC1 09:12
PROVIDERS: ATTEND Internal Medicine Interventional Cardiology
DX: E78.2 Mixed hyperlipidemia (principal)
CPT/HCPCS: 36415; 80053; 80061